=== PATIENT | male | born 1980 | race Caucasian/White ===

== ENCOUNTER 2023-03-19 19:27 | Emergency (ER) | payer BC, SELFPAY ==
[2023-03-19 19:28] VITALS: BP 130/77; PULSE 81; RESP 16; TEMP 37.1; O2SAT 98; BMI 32.7
--- NOTE | 2023-03-19 19:44 | EDS_ITS ---
HPI History of Present Illness Chief Complaint: Laceration Detail of Chief Complaint: Scalp laceration. Informant: patient Onset/Context/Timing Onset: Today and Hours Mechanism/Context: Blunt Injury Current Severity: Mild Maximum Severity: Mild Associated Symptoms Associated Symptoms: Negative for Parasthesias, Weakness, Loss of function, Inability to ambulate, Loss of consciousness or Amnesia Narrative Narrative: 42-year-old male no significant past medical history. Was working outside his home pulled the electrical cord which came undone and the prongs of the cord struck him in his scalp causing a 1 inch laceration. This occurred several hours ago. He was unable to get the bleeding stopped and came in to have it evaluated. Denies any LOC. No headache. His tetanus is up-to-date. Tetanus Immunization: 5-10 years Prior similar symptoms: No Recent Illness/Hospitalization: No PFSH PFS Medical History (Updated 03/19/23 @ 19:[address] Félix Anderson MD) Asthma Medical History no medical history no medical history Allergy/AdvReac Type Severity Reaction Status Date / Time No Known Allergies Allergy Verified 03/19/23 19:29 ROS ROS ED ROS Narrative Denies recent illness. Review of Systems ROS Unobtainable: Denies due to encephalopathy Constitutional Constitutional ED: Denies fever(s) Eyes Eyes: Denies blurry vision ENT ENT ED: Denies ear pain Cardiovascular Cardiovascular: Denies chest pain Respiratory/Chest Respiratory/Chest: Denies cough Gastrointestinal Gastrointestinal: Denies abdominal pain Genitourinary Genitourinary ED: Denies dysuria Musculoskeletal Musculoskeletal: Denies arthralgias Integumentary Denies abscess Neurologic Neurologic: Denies headache(s) Psychiatric Psychiatric: Denies anxiety Endocrine Endocrinology: Denies cold intolerance Hematologic/Lymphatic Hematologic/Lymphatic: Denies easy bleeding or easy bruising Allergic/Immunologic Allergic/Immunologic ED: Denies mouth swelling or tongue swelling EXAM Physical Exam Narrative Exam Narrative: 42-year-old male no acute distress. Vital signs stable afebrile. H EENT exam is round to light. No facial trauma. Anterior top of the scalp is about a 1 inch laceration. It does not gape. There is no significant hematoma. It is oozing blood. No pulsatile bleeding. No foreign body. Neck nontender. Lungs are clear. Heart regular rhythm. Chest wall nontender. Abdomen soft nontender. Moving all 4 extremities. Neurologic exam normal. Const Vital Signs: 03/19/23 19:28 Temperature 98.7 F Temperature Source Temporal Pulse Rate 81 Respiratory Rate 16 Blood Pressure 130/77 H Blood Pressure Mean 94 Pulse Ox 98 Oxygen Delivery Method Room Air Positive well nourished and well developed; Negative for cachectic or unkempt General Appearance ED: well developed and NAD; Negative for unkempt or cachectic Nutritional Appearance: Negative for cachectic HEENT HEENT Narrative: Anterior scalp laceration 1 inch. Does not gape. Mild oozing of blood. trauma and tenderness; Negative for atraumatic Eyes PERRL and EOMs intact bilaterally Neck full ROM General: Negative for tenderness or other Chest Wall inspection of chest normal and palpation of chest normal Breast/Axilla Inspection: Negative for other Resp normal respiratory effort and clear to auscultation bilaterally Effort and Inspection: Negative for pain with movement Auscultation: Negative for rales, rhonchi or wheezes Cardio S1 normal heart sound, S2 normal heart sound and no murmurs Jugular Venous Distention: Negative for other Palpation: Negative for palpable S3 Rate: regular rate; Negative for bradycardia or tachycardic Rhythm: Negative for abnormal rhythm GI normal to inspection, nondistended, normoactive bowel sounds, non-tender, non- distended and no masses Inspection: Negative for abdominal distention Auscultation: normoactive bowel sounds Palpation: soft; Negative for tender or guarding Bladder / Kidney Exam: No other Back/Spine normal to inspection and no thoracic nor lumbar tenderness General Back: Negative for CVA tenderness Thoracic Spine / Upper Back: Negative for thoracic spinal tenderness Extremity normal to inspection and full ROM General Extremety ED: Negative for deformity or edema General Extremity: Negative for deformity or edema Neuro oriented x3, CN's II-XII intact bilaterally, moves all extremities, no focal m otor deficits and no sensory deficits noted Beena Coma Scale: document GCS findings Spontaneous Obeys Commands Oriented 15 Sensorium / Orientation: alert, oriented to person, oriented to place and oriented to time; Negative for orientation impaired, lethargic or stuporous Motor Exam: strength 5/5 throughout Psych mental status grossly normal and thought process normal Appearance: Negative for unkempt Attitude: No agitated Mood & Affect: Negative for depressed, anxious or tearful Skin no rashes or lesions noted, No no wounds, skin turgor normal and no jaundice Skin Narrative: Anterior scalp laceration 1 inch. Wounds: wounds noted PROC Procedures Lacerations Anterior scalp laceration repair:: Length: 1 in Depth: Sub Q Shape: Linear Comment: Anterior scalp laceration. 1 to 2 inches. Oozing blood. No foreign body. No infection. Does not gape. Clean. Closed using Dermabond. Proper hemostasis wound closure obtained. Patient tolerated procedure well. Was instructed on wound care. MDM MDM MDM Narrative Medical decision making narrative: 42-year-old male had an electrical plug hit him and his anterior scalp causing a 1 inch laceration. Tetanus up-to-date. Clean the wound. It does not gape. Dermabond was applied. We discussed suturing versus Dermabond. Patient preferred glue. Steri-Strips were applied. He was instructed on wound care. Discharge Plan Triage Chief Complaint: Laceration ED Provider: Félix Anderson Dx/Rx/DC Orders Clinical Impression: Laceration of scalp Instructions: ED Laceration: All Closures Primary Care Provider: Rickie Stevens Referrals: Rickie Stevens DO [Primary Care Provider] - As Needed Activity Restrictions/Additional Instructions: If rebleeds hold direct pressure to 20 to 30 minutes. If unable to get the bleeding stopped return. Tylenol for pain. The Steri-Strips will naturally come off do not take them off before 5 days. Disposition Disposition: Home, Self Care
== END 2023-03-19 19:59 | disposition home or self-care (01) ==
PROVIDERS: Emergency Provider Emergency Medicine; PCP Family Medicine; Visit Provider Emergency Medicine
DX: S01.01XA Laceration without foreign body of scalp, initial encounter (principal); W22.8XXA Striking against or struck by other objects, initial encounter; Y92.008 Other place in unspecified non-institutional (private) residence as the place of occurrence of the external cause
CPT/HCPCS: 12001; 99282

== ENCOUNTER → 2024-08-17 | Outpatient (CLI) | payer BC, SELFPAY ==
--- NOTE | 2024-08-17 14:06 | RAD_ITS ---
INDICATION: PAIN EXAMINATION/TECHNIQUE: X-RAY - XR Pelvis 1 or 2 Views COMPARISON: None. FINDINGS: PELVIC BONES: No fracture. The sacroiliac joints are unremarkable. The pubic symphysis is not widened. HIPS: No evidence of a fracture or dislocation. SOFT TISSUES: Unremarkable. RAD/Pelvis 1 or 2 Views IMPRESSION: Unremarkable view of the pelvis. Electronically Signed: Jersey Ram DO at 1:49 EDT ,
[2024-08-17 17:36] LABS: Erythrocyte Sedimentation Rate 3 mm/hr (0-20)
[2024-08-17 17:37] LABS: Absolute Lymphocyte Count 2.18 X10^3/uL (0.83-4.51); Absolute Neutrophil Count 2.9 X10^3/uL (2.0-7.7); Basophil# 0.08 X10^3/uL; Basophil% 1.4 % (0-1); Eosinophils% 3.4 % (0-5); Hemoglobin 16.2 g/dL (13.0-16.5); Lymphocyte # 2.18 X10^3/ul (0.83-4.51); Lymphocyte % 37.5 % (19-41); Mean Corp Hgb Conc 33.8 g/dL (32-36); Mean Corpuscular Hgb 30.9 pg (27.0-32.0); Mean Corpuscular Volume 91.6 fL (80-94); Mean Platelet Vol. 10.2 fl (6.2-12.0); Monocyte# 0.47 X10^3/uL; Monocyte% 8.1 % (0-10); NRBC Flagged by Analyzer 0 % (0-5); Neutrophil # 2.88 X10^3/uL (2.7-7.7); Neutrophil % 49.4 % (47-70); Platelet Count 314 K/mm3 (150-450); RBC Distribution Width CV 11.7 % (11.6-14.6); RBC Distribution Width SD 39.5 fl (35.1-43.9); Red Blood Count 5.24 M/mm3 (4.6-6.2); White Blood Count 5.8 K/mm3 (4.4-11.0)
[2024-08-17 18:09] LABS: ALB/GLOB Ratio 1.4 RATIO (0.9-2.4); AST(SGOT) 27 U/L (15-37); Alanine Aminotransfer ALT/SGPT 56 U/L (16-61); Albumin, Serum 4.1 g/dL (3.2-5.0); Alkaline Phosphatase 56 U/L (45-117); Anion Gap 6 (5-15); BUN 20 mg/dL (7-18); BUN/Creat Ratio 18.5 RATIO (10-20); CRP < 2.90 mg/L (0.0-3.0); Calcium,Total 9.2 mg/dL (8.5-10.1); Chloride 108 mmol/L (98-107); Creatinine, Serum 1.08 mg/dL (0.70-1.30); EST Glomerular Filtration Rate 79 mL/min (>60); Est Glom Filt Rate - Afr Amer 96 mL/min (>60); Glucose 130 mg/dL (74-106); Potassium 3.9 mmol/L (3.5-5.1); Protein, Total 7.1 g/dL (6.4-8.2); Rheumatoid Factor < 10.0 IU/mL (<15); Sodium Level 138 mmol/L (136-145)
[2024-08-17 18:30] LABS: Hepatitis B Surface Antibody Non-Reactive; Hepatitis B Surface Antigen Non-Reactive (Nonreactive); Hepatitis C Antibody Non-Reactive (Nonreactive)
[2024-08-20 12:08] LABS: CCP IgG Antibodies 11 units (0-19)
[2024-08-20 14:09] LABS: ANTINUCLEAR ANTIBODIES DIRECT Negative (Negative)
== END | disposition home or self-care (01) ==
LOC: MTLAB 14:05
PROVIDERS: PCP Family Medicine; Referring Provider Internal Medicine Rheumatology; Visit Provider Internal Medicine Rheumatology
DX: L40.59 Other psoriatic arthropathy (principal); L40.8 Other psoriasis
CPT/HCPCS: 36415; 72170; 80053; 85025; 85652; 86038; 86140; 86200; 86431; 86706; 86803; 87340

== ENCOUNTER → 2024-09-07 | Outpatient (CLI) | payer BC, SELFPAY ==
[2024-09-10 16:10] LABS: G6PD Quant Test 261 (127-427); Red Blood Cell Count Test/G6PD 4.96 x10E6/uL (4.14-5.80)
== END | disposition home or self-care (01) ==
LOC: MTLAB 11:18
PROVIDERS: PCP Family Medicine; Referring Provider Internal Medicine Rheumatology; Visit Provider Internal Medicine Rheumatology
DX: L40.59 Other psoriatic arthropathy (principal); Z79.899 Other long term (current) drug therapy
CPT/HCPCS: 36415; 82955

== ENCOUNTER → 2024-11-05 | Outpatient (CLI) | payer BC, SELFPAY ==
[2024-11-05 17:22] LABS: Absolute Lymphocyte Count 2.23 X10^3/uL (0.83-4.51); Absolute Neutrophil Count 2.7 X10^3/uL (2.0-7.7); Basophil# 0.07 X10^3/uL; Basophil% 1.2 % (0-1); Eosinophil# 0.21 X10^3/uL; Eosinophils% 3.7 % (0-5); Hematocrit 44.7 % (40-54); Hemoglobin 15.3 g/dL (13.0-16.5); Lymphocyte # 2.23 X10^3/ul (0.83-4.51); Lymphocyte % 38.9 % (19-41); Mean Corp Hgb Conc 34.2 g/dL (32-36); Mean Corpuscular Hgb 31.8 pg (27.0-32.0); Mean Corpuscular Volume 92.9 fL (80-94); Monocyte# 0.54 X10^3/uL; Monocyte% 9.4 % (0-10); NRBC Flagged by Analyzer 0 % (0-5); Neutrophil # 2.67 X10^3/uL (2.7-7.7); Neutrophil % 46.6 % (47-70); Platelet Count 259 K/mm3 (150-450); RBC Distribution Width CV 12.1 % (11.6-14.6); RBC Distribution Width SD 41.5 fl (35.1-43.9); Red Blood Count 4.81 M/mm3 (4.6-6.2); White Blood Count 5.7 K/mm3 (4.4-11.0)
[2024-11-05 17:40] LABS: ALB/GLOB Ratio 1.6 RATIO (0.9-2.4); AST(SGOT) 29 U/L (15-37); Alanine Aminotransfer ALT/SGPT 47 U/L (16-61); Albumin, Serum 4.2 g/dL (3.2-5.0); Alkaline Phosphatase 52 U/L (45-117); Anion Gap 5 (5-15); BUN 14 mg/dL (7-18); BUN/Creat Ratio 12.6 RATIO (10-20); Calcium,Total 9.1 mg/dL (8.5-10.1); Chloride 109 mmol/L (98-107); Creatinine, Serum 1.11 mg/dL (0.70-1.30); EST Glomerular Filtration Rate 77 mL/min (>60); Est Glom Filt Rate - Afr Amer 93 mL/min (>60); Globulin 2.7 g/dL (2.2-4.2); Glucose 91 mg/dL (74-106); Potassium 3.6 mmol/L (3.5-5.1); Protein, Total 6.9 g/dL (6.4-8.2); Sodium Level 142 mmol/L (136-145)
== END | disposition home or self-care (01) ==
LOC: MTLAB 14:46
PROVIDERS: PCP Family Medicine; Referring Provider Internal Medicine Rheumatology; Visit Provider Internal Medicine Rheumatology
DX: L40.59 Other psoriatic arthropathy (principal); Z79.899 Other long term (current) drug therapy
CPT/HCPCS: 36415; 80053; 85025

== ENCOUNTER → 2025-01-25 | Outpatient (CLI) | payer BC, SELFPAY ==
[2025-01-25 12:46] LABS: Absolute Lymphocyte Count 1.42 X10^3/uL (0.83-4.51); Absolute Neutrophil Count 2.9 X10^3/uL (2.0-7.7); Basophil# 0.06 X10^3/uL; Basophil% 1.2 % (0-1); Eosinophil# 0.19 X10^3/uL; Eosinophils% 3.7 % (0-5); Hematocrit 43.2 % (40-54); Hemoglobin 14.5 g/dL (13.0-16.5); Lymphocyte # 1.42 X10^3/ul (0.83-4.51); Lymphocyte % 27.4 % (19-41); Mean Corp Hgb Conc 33.6 g/dL (32-36); Mean Corpuscular Hgb 31.8 pg (27.0-32.0); Mean Corpuscular Volume 94.7 fL (80-94); Mean Platelet Vol. 10.1 fl (6.2-12.0); Monocyte# 0.64 X10^3/uL; Monocyte% 12.3 % (0-10); NRBC Flagged by Analyzer 0 % (0-5); Neutrophil # 2.86 X10^3/uL (2.7-7.7); Platelet Count 259 K/mm3 (150-450); RBC Distribution Width CV 12.3 % (11.6-14.6); RBC Distribution Width SD 42.8 fl (35.1-43.9); Red Blood Count 4.56 M/mm3 (4.6-6.2); White Blood Count 5.2 K/mm3 (4.4-11.0)
[2025-01-25 13:22] LABS: ALB/GLOB Ratio 1.9 RATIO (0.9-2.4); AST(SGOT) 28 U/L (<=37); Alanine Aminotransfer ALT/SGPT 35 U/L (<=46); Albumin, Serum 4.3 g/dL (3.5-5.0); Alkaline Phosphatase 60 U/L (40-129); Anion Gap 14 (5-15); BUN 13 mg/dL (4-19); BUN/Creat Ratio 12.9 RATIO (10-20); Calcium,Total 9.2 mg/dL (7.6-11.0); Carbon Dioxide 21.4 mmol/L (21.0-32.0); Chloride 104 mmol/L (98-108); EST Glomerular Filtration Rate 96 (>60); Globulin 2.3 g/dL (2.2-4.2); Glucose 114 mg/dL (70-99); Potassium 3.8 mmol/L (3.3-5.1); Protein, Total 6.6 g/dL (5.9-8.4); Sodium Level 139 mmol/L (133-145); Total Bilirubin 0.89 mg/dL (0.00-1.30)
== END | disposition home or self-care (01) ==
LOC: MTLAB 09:42
PROVIDERS: PCP Family Medicine; Referring Provider Internal Medicine Rheumatology; Visit Provider Internal Medicine Rheumatology
DX: L40.59 Other psoriatic arthropathy (principal); Z79.899 Other long term (current) drug therapy
CPT/HCPCS: 36415; 80053; 85025

== ENCOUNTER → 2025-04-24 | Outpatient (CLI) | payer BC, SELFPAY ==
[2025-04-24 17:47] LABS: Hematocrit 43.4 % (40-54); Hemoglobin 15.0 g/dL (13.0-16.5); Immature Granulocytes Count 0.010 X10^3/uL (0.0-0.0); Mean Corp Hgb Conc 34.6 g/dL (32-36); Mean Corpuscular Volume 92.7 fL (80-94); Mean Platelet Vol. 10.1 fl (6.2-12.0); NRBC Flagged by Analyzer 0 % (0-5); Platelet Count 269 K/mm3 (150-450); RBC Distribution Width CV 11.7 % (11.6-14.6); RBC Distribution Width SD 39.8 fl (35.1-43.9); Red Blood Count 4.68 M/mm3 (4.6-6.2); White Blood Count 5.7 K/mm3 (4.4-11.0)
[2025-04-24 18:05] LABS: AST(SGOT) 35 U/L (<=37); Alanine Aminotransfer ALT/SGPT 43 U/L (<=46); Albumin, Serum 4.5 g/dL (3.5-5.0); Alkaline Phosphatase 50 U/L (40-129); Anion Gap 10 (5-15); BUN 17 mg/dL (4-19); BUN/Creat Ratio 15.4 RATIO (10-20); Calcium,Total 9.5 mg/dL (7.6-11.0); Carbon Dioxide 21.8 mmol/L (21.0-32.0); Chloride 107 mmol/L (98-108); Globulin 2.0 g/dL (2.2-4.2); Glucose 90 mg/dL (70-99); Potassium 4.2 mmol/L (3.3-5.1)
== END | disposition home or self-care (01) ==
LOC: MTLAB 15:41
PROVIDERS: PCP Family Medicine; Referring Provider Internal Medicine Rheumatology; Visit Provider Internal Medicine Rheumatology
DX: L40.59 Other psoriatic arthropathy (principal); Z79.899 Other long term (current) drug therapy
CPT/HCPCS: 36415; 80053; 85025

== ENCOUNTER → 2025-07-26 | Outpatient (CLI) | payer BC, SELFPAY ==
[2025-07-26 18:51] LABS: AST(SGOT) 35 U/L (<=37); Alanine Aminotransfer ALT/SGPT 46 U/L (<=46); Albumin, Serum 4.5 g/dL (3.5-5.0); Alkaline Phosphatase 51 U/L (40-129); Anion Gap 12 (5-15); BUN 13 mg/dL (4-19); BUN/Creat Ratio 13.1 RATIO (10-20); Calcium,Total 9.3 mg/dL (7.6-11.0); Carbon Dioxide 22.7 mmol/L (21.0-32.0); Chloride 106 mmol/L (98-108); Globulin 2.1 g/dL (2.2-4.2); Glucose 127 mg/dL (70-99); Potassium 3.7 mmol/L (3.3-5.1)
[2025-07-26 18:56] LABS: Hematocrit 43.5 % (40-54); Hemoglobin 15.3 g/dL (13.0-16.5); Immature Granulocytes Count 0.010 X10^3/uL (0.0-0.0); Mean Corp Hgb Conc 35.2 g/dL (32-36); Mean Corpuscular Volume 91.6 fL (80-94); Mean Platelet Vol. 10.5 fl (6.2-12.0); NRBC Flagged by Analyzer 0 % (0-5); Platelet Count 274 K/mm3 (150-450); RBC Distribution Width CV 11.5 % (11.6-14.6); RBC Distribution Width SD 38.7 fl (35.1-43.9); Red Blood Count 4.75 M/mm3 (4.6-6.2); White Blood Count 5.3 K/mm3 (4.4-11.0)
--- OUTSIDE RECORDS SUMMARY | 2025-08-27 16:23 | XMS RPT_ITS | CCD ---
Author Organization [facility] ion [facility] Care Team Providers Care Vice President Digital Strategist Name Role Phone RODNEY DO, DR ANNIA Echeverria Primary Care Physician RODNEY DO, DR ANNIA Echeverria Attending Unavailabl e RODNEY DO, DR ANNIA Echeverria Primary Care Unavailabl e RODNEY DO, DR ANNIA Echeverria Attending Unavailabl e RODNEY DO, DR ANNIA Echeverria Primary Care Unavailabl e RODNEY DO, DR ANNIA Echeverria Attending Unavailabl e RODNEY DO, DR ANNIA Echeverria Primary Care Unavailabl e SAMM HENNING Attending Unavailable RODNEY DO, DR ANNIA Echeverria Primary Care Unavailabl e AWAIS DOYLE PA-C Attending Unavailable RODNEY DO, DR ANNIA Echeverria Primary Care Unavailabl e RODNEY DO, DR ANNIA Echeverria Attending Unavailabl e RODNEY DO, DR ANNIA Echeverria Primary Care Unavailabl e MD MARCELO MCCRACKEN Attending Unavailable RODNEY DO, DR ANNIA Echeverria Primary Care Unavailabl e Rodney DO, Dr. Damian Primary Care Provider Silvana CARRILLO, Dr. Luna Attending Provider Silvana CARRILLO, Dr. Luna Referring Provider Rodney DO, Dr. Damian Primary Care Provider Silvana CARRILLO, Dr. Luna Attending Provider Silvana CARRILLO, Dr. Luna Referring Provider RODNEY DO, DR ANNIA Echeverria Primary Care UnavailAWAIS Bocanegra MD Attending Unavailable Cheryl Pina Referring Unavailable Cheryl Pina Attending Unavailable RodneyAnnia Primary Care Unavailable Cheryl Pina Referring Unavailable Cheryl Pina Attending Unavailable RodneyAnnia Primary Care Unavailable Cheryl Pina Attending Unavailable RodneyAnnia Primary Care Unavailable Vellanki, Cheryl Referring Unavailable Vellanki, Cheryl Referring Unavailable RodneyAnnia Primary Care Unavailable Vellanki, Cheryl Attending Unavailable Vellanki, Cheryl Attending Unavailable RodneyAnnia Primary Care Unavailable Vellanki, Cheryl Referring Unavailable Vellanki, Cheryl Referring Unavailable Vellanki, Cheryl Attending Unavailable Rodney, Annia Primary Care Unavailable Medications Current Medications Medication Drug Class(es) Dates Sig (Normalized) Sig (Original) 1 ML bimekizumab-bkzx 160 MG/ML Auto-Injector [Bimzelx] (1 source) Start: 08-02-2024 inject 1 dose by subcutaneous injection once Bimzelx Autoinjector 160 mg/mL subcutaneous injection Dose : 320 mg = 2 mL, Subcutaneous, q4wk, per broomcorn thresher, # 4 mL, 0 Refill(s), other reason (Rx), Plaque psoriasis Start Date: 08/02/24 Status: Ordered acetaminophen 500 mg oral tablet (2 sources) Start: 12-13-2023 acetaminophen 500 mg oral tablet Dose : 1,000 mg = 2 tab(s), Oral, TID, PRN pain or fever, 0 Refill(s) Start Date: 12/13/23 Status: Ordered [id number] 200 actuat albuterol 0.09 mg/actuat metered dose inhaler (9 sources) beta2-Adrenergic Agonist Start: 03-03-2022 take 2 puff(s) by inhalation every four hours as needed for wheezing ProAir HFA MDI (90 mcg/inh) inhalation aerosol 2 puff(s), Inhalation, q4h, PRN as needed for wheezing, # 8.5 gram(s), 3 Refill(s), Pharmacy: [facility]/pharmacy #[id number], Moderate persistent asthma without complication, 173, cm, 03/03/22 13:25:00 EDT, Height, kg, 03/03/22 13:25:00 EDT, Dosing Weight Start Date: 03/03/22 Status: Ordered Start: 05-09-2020 take 2 puff(s) by in halation every four hours as needed for wheezing ProAir HFA MDI (90 mcg/inh) inhalation aerosol 2 puff(s), Inhalation, q4h, PRN as needed for wheezing, # 8.5 gram(s), 1 Refill(s), Pharmacy: [facility], Moderate persistent asthma without complication, 173, cm, 05/09/20 15:04:00 EDT, Height, kg, 05/09/20 15:04:00 EDT, Dosing Weight Start Date: 05/09/20 Status: Ordered azithromycin 250 mg oral tablet (2 sources) Macrolide Antimicrobial Start: 08-23-2023 Azithromycin 250 mg tablet Active 250 mg PO daily 6 August 23, 2023 1:00am 2 tablets today, then 1 tablet daily on days 2 through 5 Breo Ellipta 100 mcg-25 mcg/inh inhalation powder (6 sources) Start: 08-02-2024 End: 07-28-2025 take 1 dose by inhalation once daily Breo Ellipta 100 mcg-25 mcg/inh inhalation powder Dose = 1 puff(s), Inhalation, qDay, # 3 EA, 3 Refill(s), Pharmacy: [facility]/pharmacy #[id number], 175, cm, 08/02/24 11:28:00 EDT, Height, kg, 08/02/24 11:28:00 EDT, Dosing Weight Start Date: 08/02/24 Stop Date: 07/28/25 Status: Ordered Start: 12-14-2023 End: 12-08-2024 take 1 dose by inhalation once daily Breo Ellipta 100 mcg-25 mcg/inh inhalation powder Dose = 1 puff(s), Inhalation, qDay, # 3 EA, 3 Refill(s), Pharmacy: [facility]/pharmacy #[id number], 171, cm, 12/13/23 10:59:00 EST, Height, kg, 12/13/23 10:59:00 EST, Dosing Weight Start Date: 12/14/23 Stop Date: 12/08/24 Status: Ordered Start: 09-02-2022 take 1 dose by inhal ation once daily Breo Ellipta 100 mcg-25 mcg/inh inhalation powder Dose = 1 puff(s), Inhalation, qDay, 0 Refill(s) Start Date: 09/02/22 Status: Ordered Start: 02-05-2022 End: 01-31-2023 take 1 dose by inhalation once daily Breo Ellipta 100 mcg-25 mcg/inh inhalation powder Dose = 1 puff(s), Inhalation, Daily, # 1 EA, 11 Refill(s), [id number], Moderate persistent asthma without complication, 173, cm, 10/23/21 15:55:00 EST, Height, kg, 10/23/21 15:55:00 EST, Dosing Weight Start Date: 02/05/22 Stop Date: 01/31/23 Status: Ordered 60 actuat fluticasone propionate 0.25 mg/actuat / salmeterol 0.05 mg/actuat dry powder inhaler (1 source) Corticosteroid, beta2-Adrenergic Agonist Start: 03-03-2022 End: 02-26-2023 take 1 dose by inhalation twice daily Wixela Inhub 250 mcg-50 mcg inhalation powder Dose = 1 puff(s), Inhalation, BID, # 180 EA, 3 Refill(s), [id number], Asthmatic bronchitis Asthma with exacerbation, 173, cm, 03/03/22 13:25:00 EDT, Height Start Date: 03/03/22 Stop Date: 02/26/23 Status: Ordered gabapentin 100 mg oral capsule (1 source) Anti-epileptic Agent Start: 06-07-2024 take 1-3 capsules by mouth at bedtime gabapentin 100 mg oral capsule See Instructions, 1-3 caps at bedtime, # 90 cap(s), 0 Refill(s), Pharmacy: [facility] #[id number], Nocturnal leg movements, 175, cm, 06/07/24 11:14:00 EDT, Height, 98.3, kg, 06/07/24 11:14:00 EDT, Dosing Weight Start Date: 06/07/24 Status: Ordered ibuprofen 200 mg oral capsule (9 sources) Nonsteroidal Anti-inflammatory Drug Start: 03-06-2021 ibuprofen 200 mg oral capsule Dose : 400 mg = 2 cap(s), Oral, q4h, PRN as needed for pain, # 120 cap(s), 0 Refill(s) Start Date: 03/06/21 Status: Ordered loratadine 10 mg oral capsule (2 sources) Start: 09-25-2021 loratadine 10 mg oral capsule Dose : 10 mg = 1 cap(s), Oral, qDay, # 10 cap(s), 0 Refill(s), Pharmacy: [facility], Contact dermatitis, 68.9, cm, 09/25/21 14:16:00 EST, Height, kg, 09/25/21 14:16:00 EST, Dosing Weight Start Date: 09/25/21 Status: Ordered Post-op shoe (4 sources) Start: 02-18-2022 Post-op shoe See Instructions, pt given mens medium in office, # 1 EA, 0 Refill(s), samples given to patient (Rx), Injury of left foot, 108 Start Date: 02/18/22 Status: Ordered Symbicort 80 mcg-4.5 mcg/inh Inhaler (2 sources) Start: 06-08-2023 End: 06-02-2024 take 1 dose by mouth twice daily in the morning Symbicort 80 mcg-4.5 mcg/inh Inhaler Dose = 2 puff(s), Inhalation, BID, in the morning and the evening. rinse mouth and throat after use. replaces Breo due to insurance., # 3 EA, 3 Refill(s), Pharmacy: [facility]/pharmacy #[id number], Moderate asthma without complication, 173, cm, 06/08/23 11:37:00 EDT, Height, kg, 06/08/23 11:37:00 EDT, Dosing Weight Start Date: 06/08/23 Stop Date: 06/02/24 Status: Ordered Completed/Discontinued Medications Medication Drug Class(es) Dates Sig (Normalized) Sig (Original) cetirizine hydrochloride 10 mg oral tablet (9 sources) Histamine-1 Receptor Antagonist Start: 03-06-2021 Zyrtec 10 mg oral tablet Dose : 10 mg = 1 tab(s), Oral, qDay, PRN as needed for allergy symptoms, # 10 tab(s), 0 Refill(s) Start Date: 03/06/21 Status: Suspended rOPINIRole 0.25 mg oral tablet (1 source) Nonergot Dopamine Agonist Start: 08-02-2024 take 4 tablets by mouth at bedtime rOPINIRole 0.25 mg oral tablet See Instructions, 1 tab(s) Oral 1 to 3 hours before bedtime. May increase by 0.25 mg every 5-7 days up to 1 mg., # 60 tab(s), 0 Refill(s), Pharmacy: [facility]/pharmacy #[id number], Restless leg syndrome, 175, cm, 08/02/24 11:28:00 EDT, Height, kg, 08/02/24 11:28:00 EDT, Dosing Weight Start Date: 08/02/24 Status: Ordered 1 ml ustekinumab 90 mg/ml prefilled syringe (6 sources) Interleukin-12 Antagonist, Interleukin-23 Antagonist Start: 04-22-2022 Stelara PFS 90 mg/mL subcutaneous solution Dose : 90 mg = 1 mL, Subcutaneous, q4wk, # 1 mL, 0 Refill(s) Start Date: 04/22/22 Status: Ordered Problems Problem Classification Problem Date Documented Date Episodic/Chronic Asthma (20 sources) Uncomplicated moderate persistent asthma; Translations: [Exacerbation of asthma] Onset: 05-29-2025 05-09-2020 Chronic Disorders of lipid metabolism (1 source) Mixed hyperlipidemia 08-02-2024 Chronic Headache; including migraine (1 source) Headache; including migraine; Translations: [Headache, unspecified] Onset: 05-29-2025 Heart valve disorders (9 sources) Heart murmur 08-25-2021 Episodic Mycoses (14 sources) Onychomycosis of toenails; Translations: [Tinea pedis] 09-17-2022 Episodic Open wounds of head; neck; and trunk (3 sources) Scalp laceration; Translations: [Laceration without foreign body of scalp, initial encounter] 03-19-2023 Episodic Osteoarthritis (8 sources) 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; Translations: [Unspecified osteoarthritis, unspecified site] Onset: 05-29-2025 06-18-2022 Chronic Other aftercare (2 sources) Long-term current use of drug therapy; Translations: [Other senior care (current) drug therapy] Episodic Other aftercare (1 source) Other ad terminal makeup operator (current) drug therapy; Translations: [Other senior care (current) drug therapy] Onset: 07-26-2025 Episodic Other connective tissue disease (7 sources) Pain in left foot 06-18-2022 Episodic Other connective tissue disease (7 sources) Pain of toe of left foot 06-18-2022 Episodic Other connective tissue disease (7 sources) Pain of toe of right foot 09-17-2022 Episodic Other connective tissue disease (7 sources) Plantar fasciitis of left foot 06-18-2022 Episodic Other ear and sense organ disorders (2 sources) Impacted cerumen; Translations: [Impacted cerumen, bilateral] 08-23-2023 Episodic Other hereditary and degenerative nervous system conditions (1 source) Restless legs 08-02-2024 Chronic Other inflammatory condition of skin (7 sources) Psoriasis 09-17-2022 Chronic Other inflammatory condition of skin (1 source) Psoriasis vulgaris; Translations: [Psoriasis vulgaris] Chronic Other inflammatory condition of skin (2 sources) Other psoriatic arthropathy; Translations: [Other psoriatic arthropathy] Onset: 05-01-2025 Chronic Other inflammatory condition of skin (1 source) Other psoriasis; Translations: [Other psoriasis] Onset: 07-26-2025 Chronic Other non-traumatic joint disorders (1 source) Joint pain; Translations: [Pain in unspecified joint] Episodic Otitis media and related conditions (2 sources) Acute left otitis media; Translations: [Otitis media, unspecified, left ear] 08-23-2023 Episodic Residual codes; unclassified (2 sources) Obstructive sleep apnea (adult) (pediatric); Translations: [Obstructive sleep apnea (adult) (pediatric)] Onset: 01-07-2024 Chronic Residual codes; unclassified (3 sources) Hypersomnia, unspecified; Translations: [Hypersomnia, unspecified] Onset: 05-29-2025 Chronic Residual codes; unclassified (1 source) Restlessness and agitation; Translations: [Restlessness and agitation] Onset: 05-29-2025 Chronic Skin and subcutaneous tissue infections (7 sources) Paronychia of toe of left foot 06-18-2022 Episodic Spondylosis; intervertebral disc disorders; other back problems (1 source) Cervicalgia; Translations: [Cervicalgia] Onset: 05-29-2025 Episodic Results Test Name Value Interpretation Reference Range Facility CBC W/Diff, Automatedon 07-17 Absolute Lymph 1.75 X10 3/uL Normal 0.83-4.51 [facility] Comment on above: Performed By: #### L 100.0100, L500.4050 #### [facility] [place], [place], [id number] Absolute Neut 2.9 X10 3/uL Normal 2.0-7.7 [facility] Comment on above: Performed By: #### L 100.0100, L500.4050 #### [facility] [address] [place], [address] Basophils/100 WBC (Bld) 1.1 % High 0-1 [facility] Comment on above: Performed By: #### L 100.0100, L500.4050 #### [facility] [address] [place], [address] Eosinophils/100 WBC (Bld) 3.2 % Normal 0-5 [facility] Comment on above: Performed By: #### L 100.0100, L500.4050 #### [facility] [address] [place], [address] Erythrocyte distribution width (RBC) [Ratio] 11.5 % Low 11.6-14.6 [facility] Comment on above: Performed By: #### L 100.0100, L500.4050 #### [facility] [address] [place], [address] Hematocrit (Bld) [Volume fraction] 43.5 % Normal 40-54 [facility] Comment on above: Performed By: #### L 100.0100, L500.4050 #### [facility] [address] [place], [address] Hemoglobin (Bld) [Mass/Vol] 15.3 g/dL Normal 13.0-16.5 [facility] Comment on above: Performed By: #### L 100.0100, L500.4050 #### [facility] [address] [place], [address] IG% 0.200 Normal 0.0-0.9 [facility] Comment on above: Result Comment: IG% - Immature Granulocytes (promyelocytes, myelocytes and metamyelocytes) > 1% indicates that a LEFT SHIFT is Present. Performed By: #### L 100.0100, L500.4050 #### [facility] [address] [place], [address] Lymphocytes/100 WBC (Bld) 33.3 % Normal 19-41 [facility] Comment on above: Performed By: #### L 100.0100, L500.4050 #### [facility] [address] [place], [address] MCH (RBC) [Entitic mass] 32.2 pg High 27.0-32.0 [facility] Comment on above: Performed By: #### L 100.0100, L500.4050 #### [facility] [address] [place], [address] MCHC (RBC) [Mass/Vol] 35.2 g/dL Normal 32-36 [facility] Comment on above: Performed By: #### L 100.0100, L500.4050 #### [facility] [address] [place], [address] MCV (RBC) [Entitic vol] 91.6 fL Normal 80-94 [facility] Comment on above: Performed By: #### L 100.0100, L500.4050 #### [facility] [address] [place], [address] Monocytes/100 WBC (Bld) 7.6 % Normal 0-10 [facility] Comment on above: Performed By: #### L 100.0100, L500.4050 #### [facility] [address] [place], [address] Neutrophils/100 WBC (Bld) 54.6 % Normal 47-70 [facility] Comment on above: Performed By: #### L 100.0100, L500.4050 #### [facility] [address] [place], [address] Nucleated RBC (Bld) [#/Vol] 0 10*3/uL Normal 0-5 [facility] Comment on above: Performed By: #### L 100.0100, L500.4050 #### [facility] [address] [place], [address] Platelet mean volume (Bld) [Entitic vol] 10.5 fL Normal 6.2-12.0 [facility] Comment on above: Performed By: #### L 100.0100, L500.4050 #### [facility] [address] [place], [address] Platelets (Bld) [#/Vol] 274 10*3/uL Normal 150-450 [facility] Comment on above: Performed By: #### L 100.0100, [id number] #### [facility] [address] [place], [address] RBC (Bld) [#/Vol] 4.75 10*6/uL Normal 4.6-6.2 [facility] Comment on above: Performed By: #### L 100.0100, L500.4050 #### [facility] [address] [place], [address] RDW SD 38.7 fl Normal 35.1-43.9 [facility] Comment on above: Performed By: #### L 100.0100, [id number] #### [facility] [address] [place], [address] WBC (Bld) [#/Vol] 5.3 10*3/uL Normal 4.4-11.0 [facility] Comment on above: Performed By: #### L 100.0100, [id number] #### [facility] [address] [place], [address] Comprehensive Metabolic Prof ilon 07-26-2025 Albumin [Mass/Vol] 4.5 g/dL Normal 3.5-5.0 [facility] Comment on above: Performed By: #### L 100.0100, L500.4050 #### [facility] [address] [place], [address] Albumin/Globulin [Mass ratio] 2.2 {ratio} Normal 0.9-2.4 [facility] Comment on above: Performed By: #### L 100.0100, L500.4050 #### [facility] [address] [place], [address] ALK PHOS 51 U/L Normal 40-129 [facility] Comment on above: Performed By: #### L 100.0100, L500.4050 #### [facility] [address] [place], [address] ALT [Catalytic activity/Vol] 46 U/L Normal <=46 [facility] Comment on above: Performed By: #### L 100.0100, L500.4050 #### [facility] [address] [place], [address] AST [Catalytic activity/Vol] 35 U/L Normal <=37 [facility] Comment on above: Performed By: #### L 100.0100, L500.4050 #### [facility] [address] [place], [address] Bilirubin [Mass/Vol] 0.63 mg/dL Normal 0.00-1.30 [facility] Comment on above: Performed By: #### L 100.0100, L500.4050 #### [facility] [address] [place], [address] BUN/CRE 13.1 RATIO Normal 10-20 [facility] Comment on above: Performed By: #### L 100.0100, L500.4050 #### [facility] [address] [place], [address] Calcium [Mass/Vol] 9.3 mg/dL Normal 7.6-11.0 [facility] Comment on above: Performed By: #### L 100.0100, L500.4050 #### [facility] [address] [place], [address] Chloride [Moles/Vol] 106 mmol/L Normal 98-108 [facility] Comment on above: Performed By: #### L 100.0100, L500.4050 #### [facility] [address] [place], [address] CO2 [Moles/Vol] 22.7 mmol/L Normal 21.0-32.0 [facility] Comment on above: Performed By: #### L 100.0100, L500.4050 #### [facility] [address] [place], [address] Creatinine [Mass/Vol] 0.98 mg/dL Normal 0.70-1.20 [facility] Comment on above: Performed By: #### L 100.0100, L500.4050 #### [facility] [address] [place], [address] GAP 12 Normal 5-15 [facility] Comment on above: Performed By: #### L 100.0100, L500.4050 #### [facility] [address] [place], [address] GFR/1.73 sq M.predicted among non-blacks MDRD (S/P/Bld) [Vol rate/Area] 98 mL/min/{1.73_m2} Normal >60 [facility] Comment on above: Result Comment: mL/m in/1.73m2 CKD-EPI Creatinine Equation (2020) Performed By: #### L 100.0100, L500.4050 #### [facility] [address] [place], [address] Globulin (S) [Mass/Vol] 2.1 g/dL Low 2.2-4.2 [facility] Comment on above: Performed By: #### L 100.0100, L500.4050 #### [facility] [address] [place], [address] Glucose [Mass/Vol] 127 mg/dL High 70-99 [facility] Comment on above: Performed By: #### L 100.0100, L500.4050 #### [facility] [address] [place], [address] Potassium [Moles/Vol] 3.7 mmol/L Normal 3.3-5.1 [facility] Comment on above: Performed By: #### L 100.0100, L500.4050 #### [facility] [address] [place], [address] Sodium [Moles/Vol] 140 mmol/L Normal 133-145 [facility] Comment on above: Performed By: #### L 100.0100, L500.4050 #### [facility] [address] [place], [address] T PROT 6.5 g/dL Normal 5.9-8.4 [facility] Comment on above: Performed By: #### L 100.0100, L500.4050 #### [facility] [address] [place], [address] Urea nitrogen [Mass/Vol] 13 mg/dL Normal 4-19 [facility] Comment on above: Performed By: #### L 100.0100, L500.4050 #### [facility] [address] [place], [address] Absolute lymphocyte countOrd ered By: Cheryl Pina on 04-24-2025 Lymphocytes Auto (Unsp spec) [#/Vol] 2.11 10*3/uL 0.83-4.51 [facility] Absolute neutrophil countOrd ered By: Cheryl Pina on 07-09-2025 Neutrophils (Bld) [#/Vol] 2.7 10*3/uL 2.0-7.7 [facility] Anion gap in Serum or Plasma Ordered By: Cheryl Pina on 04-24-2025 Anion gap [Moles/Vol] 10 mmol/L 5- [facility] Automated lymphocyte count a s percentage of total leukocytesOrdered By: Cheryl Pina on 04-24-2025 Lymphocytes/100 WBC Auto (Unsp spec) 36.8 % - [facility] BUN/creatinine ratioOrdered By: Cherylkirsten Pina on 04-24-2025 Urea nitrogen/Creatinine [Mass ratio] 15.4 mg/mg 10- [facility] Basophil percentageOrdered B y: Cheryl Pina on 04-24-2025 Basophils/100 WBC (Bld) 1.0 % 0-1 [facility] Bilirubin, totalOrdered By: Cheryl Pina on 04-24-2025 Bilirubin [Mass/Vol] 0.96 mg/dL 0.00-1.30 [facility] CBC W/Diff, Automatedon Absolute Lymph 2.11 X10 3/uL Normal 0.83-4.51 [facility] Comment on above: Performed By: #### L 100.0100, L500.4050 #### [facility] [address] [facility] [place], [address] Absolute Neut 2.7 X10 3/uL Normal 2.0-7.7 [facility] Comment on above: Performed By: #### L 100.0100, L500.4050 #### [facility] [address] [place], [address] Basophils/100 WBC (Bld) 1.0 % Normal 0-1 [facility] Comment on above: Performed By: #### L 100.0100, L500.4050 #### [facility] [address] [place], [address] Eosinophils/100 WBC (Bld) 5.1 % High 0-5 [facility] Comment on above: Performed By: #### L 100.0100, L500.4050 #### [facility] [address] [place], [address] Erythrocyte distribution width (RBC) [Ratio] 11.7 % Normal 11.6-14.6 [facility] Comment on above: Performed By: #### L 100.0100, L500.4050 #### [facility] [address] [place], [address] Hematocrit (Bld) [Volume fraction] 43.4 % Normal 40-54 [facility] Comment on above: Performed By: #### L 100.0100, L500.4050 #### [facility] [address] [place], [address] Hemoglobin (Bld) [Mass/Vol] 15.0 g/dL Normal 13.0-16.5 [facility] Comment on above: Performed By: #### L 100.0100, L500.4050 #### [facility] [address] [place], [address] IG% 0.200 Normal 0.0-0.9 [facility] Comment on above: Result Comment: IG% - Immature Granulocytes (promyelocytes, myelocytes and metamyelocytes) > 1% indicates that a LEFT SHIFT is Present. Performed By: #### L 100.0100, L500.4050 #### [facility] [address] [place], [address] Lymphocytes/100 WBC (Bld) 36.8 % Normal 19-41 [facility] [facility] Comment on above: Performed By: #### L 100.0100, L500.4050 #### [facility] [address] [place], [address] MCH (RBC) [Entitic mass] 32.1 pg High 27.0-32.0 [facility] Comment on above: Performed By: #### L 100.0100, L500.4050 #### [facility] [address] [place], [address] MCHC (RBC) [Mass/Vol] 34.6 g/dL Normal 32-36 [facility] Comment on above: Performed By: #### L 100.0100, L500.4050 #### [facility] [address] [place], [address] MCV (RBC) [Entitic vol] 92.7 fL Normal 80-94 [facility] Comment on above: Performed By: #### L 100.0100, L500.4050 #### [facility] [address] [place], [address] Monocytes/100 WBC (Bld) 10.5 % High 0-10 [facility] Comment on above: Performed By: #### L 100.0100, L500.4050 #### [facility] [address] [place], [address] Neutrophils/100 WBC (Bld) 46.4 % Low 47-70 [facility] Comment on above: Performed By: #### L 100.0100, L500.4050 #### [facility] [address] [place], [address] Nucleated RBC (Bld) [#/Vol] 0 10*3/uL Normal 0-5 [facility] Comment on above: Performed By: #### L 100.0100, L500.4050 #### [facility] [address] [place], [address] Platelet mean volume (Bld) [Entitic vol] 10.1 fL Normal 6.2-12.0 [facility] Comment on above: Performed By: #### L 100.0100, L500.4050 #### [facility] [address] [place], [address] Platelets (Bld) [#/Vol] 269 10*3/uL Normal 150-450 [facility] Comment on above: Performed By: #### L 100.0100, L500.4050 #### [facility] [address] [place], [address] RBC (Bld) [#/Vol] 4.68 10*6/uL Normal 4.6-6.2 [facility] Comment on above: Performed By: #### L 100.0100, L500.4050 #### [facility] [address] [place], [address] RDW SD 39.8 fl Normal 35.1-43.9 [facility] Comment on above: Performed By: #### L 100.0100, L500.4050 #### [facility] [address] [place], [address] WBC (Bld) [#/Vol] 5.7 10*3/uL Normal 4.4-11.0 [facility] Comment on above: Performed By: #### L 100.0100, L500.4050 #### [facility] [address] [place], [address] Carbon dioxide, total [Moles /volume] in Central venous bloodOrdered By: Cheryl Pina on 04-24-2025 CO2 [Moles/Vol] 21.8 mmol/L 21.0-32.0 [facility] Chloride assayOrdered By: Joey Pina on 04-24-2025 Chloride [Moles/Vol] 107 mmol/L 98-108 [facility] Comprehensive Metabolic Prof ilon 04-24-2025 Albumin [Mass/Vol] 4.5 g/dL Normal 3.5-5.0 [facility] Comment on above: Performed By: #### L 100.0100, L500.4050 #### [facility] [address] [place], [address] Albumin/Globulin [Mass ratio] 2.2 {ratio} Normal 0.9-2.4 [facility] Comment on above: Performed By: #### L 100.0100, L500.4050 #### [facility] [address] [place], [address] ALK PHOS 50 U/L Normal 40-129 [facility] Comment on above: Performed By: #### L 100.0100, L500.4050 #### [facility] [address] [place], [address] ALT [Catalytic activity/Vol] 43 U/L Normal <=46 [facility] Comment on above: Performed By: #### L 100.0100, L500.4050 #### [facility] [address] [place], [address] AST [Catalytic activity/Vol] 35 U/L Normal <=37 [facility] Comment on above: Performed By: #### L 100.0100, L500.4050 #### [facility] [address] [place], [address] Bilirubin [Mass/Vol] 0.96 mg/dL Normal 0.00-1.30 [facility] Comment on above: Performed By: #### L 100.0100, L500.4050 #### [facility] [address] [place], [address] BUN/CRE 15.4 RATIO Normal 10-20 [facility] Comment on above: Performed By: #### L 100.0100, L500.4050 #### [facility] [address] [place], [address] Calcium [Mass/Vol] 9.5 mg/dL Normal 7.6-11.0 [facility] Comment on above: Performed By: #### L 100.0100, L500.4050 #### [facility] [address] [place], [address] Chloride [Moles/Vol] 107 mmol/L Normal 98-108 [facility] Comment on above: Performed By: #### L 100.0100, L500.4050 #### [facility] [address] [place], [address] CO2 [Moles/Vol] 21.8 mmol/L Normal 21.0-32.0 [facility] Comment on above: Performed By: #### L 100.0100, L500.4050 #### [facility] [address] [place], [address] Creatinine [Mass/Vol] 1.09 mg/dL Normal 0.70-1.20 [facility] Comment on above: Performed By: #### L 100.0100, L500.4050 #### [facility] [address] [place], [address] GAP 10 Normal 5-15 [facility] Comment on above: Performed By: #### L 100.0100, L500.4050 #### [facility] [address] [place], [address] GFR/1.73 sq M.predicted among non-blacks MDRD (S/P/Bld) [Vol rate/Area] 86 mL/min/{1.73_m2} Normal >60 [facility] Comment on above: Result Comment: mL/m in/1.73m2 CKD-EPI Creatinine Equation (2020) Performed By: #### L 100.0100, L500.4050 #### [facility] [address] [place], [address] Globulin (S) [Mass/Vol] 2.0 g/dL Low 2.2-4.2 [facility] Comment on above: Performed By: #### L 100.0100, L500.4050 #### [facility] [address] [place], [address] Glucose [Mass/Vol] 90 mg/dL Normal 70-99 [facility] Comment on above: Performed By: #### L 100.0100, L500.4050 #### [facility] [address] [place], [address] Potassium [Moles/Vol] 4.2 mmol/L Normal 3.3-5.1 [facility] Comment on above: Performed By: #### L 100.0100, L500.4050 #### [facility] [address] [place], [address] Sodium [Moles/Vol] 139 mmol/L Normal 133-145 [facility] Comment on above: Performed By: #### L 100.0100, L500.4050 #### [facility] [address] [place], [address] T PROT 6.5 g/dL Normal 5.9-8.4 [facility] Comment on above: Performed By: #### L 100.0100, L500.4050 #### [facility] [address] [place], [address] Urea nitrogen [Mass/Vol] 17 mg/dL Normal 4-19 [facility] Comment on above: Performed By: #### L 100.0100, L500.4050 #### [facility] [address] [place], [address] Eosinophil percentageOrdered By: Cheryl Pina on 04-24-2025 Eosinophils/100 WBC (Bld) 5.1 % High 0-5 [facility] Erythrocyte distribution wid th ratioOrdered By: Cheryl Pina on 04-24-2025 Erythrocyte distribution width (RBC) [Ratio] 11.7 % 11.6-14.6 [facility] Erythrocyte distribution wid th standard deviationOrdered By: Cheryl Pina on 04-24-2025 Erythrocyte distribution width (RBC) [Ratio] 39.8 fl 35.1-43.9 [facility] Glomerular filtration rate ( GFR) estimation/1.73 sq m using serum, plasma, or whole bOrdered By: Cheryl Pina on 04-24-2025 GFR/1.73 sq M.predicted among non-blacks MDRD (S/P/Bld) [Vol rate/Area] 86 mL/min/{1.73_m2} >60 [facility] Comment on above: mL/min/1.73m2 CKD-EP I Creatinine Equation (2020) Hematocrit Auto (Bld) [Volum e fraction]Ordered By: Cheryl Pina on 04-24-2025 Hematocrit (Bld) [Volume fraction] 43.4 % 40-54 [facility] Hemoglobin measurementOrdere d By: Cheryl Pina on 04-24-2025 Hemoglobin (Bld) [Mass/Vol] 15.0 g/dL 13.0-16.5 [facility] Immature granulocytes/100 WB C Auto (Bld)Ordered By: Cheryl Pina on 04-24-2025 Immature granulocytes/100 WBC (Bld) 0.200 % 0.0-0.9 [facility] Comment on above: IG% - Immature Granu locytes (promyelocytes, myelocytes and metamyelocytes) > 1% indicates that a LEFT SHIFT is Present. Laboratory - Chemistry and C hemistry - challengeOrdered By: Cheryl Pina on 04-24-2025 AST [Catalytic activity/Vol] 35 U/L <38 [facility] MCV (mean corpuscular volume ) determinationOrdered By: Cheryl Pina 04-24-2025 MCV (RBC) [Entitic vol] 92.7 fL 80-94 [facility] Mean corpuscular hemoglobin (MCH) determinationOrdered By: Cheryl Pina on 04-24-2025 MCH (RBC) [Entitic mass] 32.1 pg High 27.0-32.0 [facility] Mean corpuscular hemoglobin concentration (MCHC) determinationOrdered By: Cheryl Pina on 04-24-2025 MCHC (RBC) [Mass/Vol] 34.6 g/dL 32-36 [facility] Mean platelet volume determi nationOrdered By: Cheryl Pina on 04-24-2025 Platelet mean volume (Bld) [Entitic vol] 10.1 fL 6.2-12.0 [facility] Monocyte percentageOrdered B y: Cheryl Pina on 04-24-2025 Monocytes/100 WBC (Bld) 10.5 % High 0-10 [facility] Neutrophil percentageOrdered By: Cheryl Pina on 04-24-2025 Neutrophils/100 WBC (Bld) 46.4 % Low 47-70 [facility] Nucleated red blood cell per centageOrdered By: Cheryl Pina on 04-24-2025 Nucleated RBC/100 WBC (Bld) [Ratio] 0 % 0-5 [facility] Platelet countOrdered By: Joey Pina on 04-24-2025 Platelets (Bld) [#/Vol] 269 10*3/uL 150-450 [facility] Potassium measurement (mass/ volume)Ordered By: Cheryl Pina on 04-24-2025 Potassium (Unsp spec) [Mass/Vol] 4.2 mmol/L 3.3-5.1 [facility] RBC Auto (Bld) [#/Vol]Ordere d By: Cheryl Pina on 04-24-2025 RBC (Bld) [#/Vol] 4.68 10*6/uL 4.6-6.2 [facility] Serum creatinine measurement (mass/volume)Ordered By: Cheryl Pina on 04-24-2025 Creatinine [Mass/Vol] 1.09 mg/dL 0.70-1.20 [facility] Serum globulin measurementOr dered By: Cheryl Pina on 04-24-2025 Globulin (S) [Mass/Vol] 2.0 g/dL Low 2.2-4.2 [facility] Serum glucose measurement (m ass/volume)Ordered By: Cheryl Pina on 04-24-2025 Glucose [Mass/Vol] 90 mg/dL 70-99 [facility] Serum or plasma alanine sarmiento otransferase (ALT) measurementOrdered By: Cheryl Pina on 04-24-2025 ALT [Catalytic activity/Vol] 43 U/L <47 [facility] Serum or plasma albumin brett urement (mass/volume)Ordered By: Cheryl Pina on 04-24-2025 Albumin [Mass/Vol] 4.5 g/dL 3.5-5.0 [facility] Serum or plasma albumin/glob ulin mass ratioOrdered By: Cheryl Pina on 04-24-2025 Albumin/Globulin [Mass ratio] 2.2 {ratio} 0.9-2.4 [facility] Serum or plasma alkaline yoselin sphatase measurementOrdered By: Cheryl Pina on 04-24-2025 ALP [Catalytic activity/Vol] 50 U/L 40-129 [facility] Serum or plasma calcium brett urement (mass/volume)Ordered By: Cheryl Pina on 04-24-2025 Calcium [Mass/Vol] 9.5 mg/dL 7.6-11.0 [facility] Serum or plasma urea nitroge n measurement (mass/volume)Ordered By: Cheryl Pina on 04-24-2025 Urea nitrogen [Mass/Vol] 17 mg/dL 4-19 [facility] Sodium levelOrdered By: Denia Pina on 04-24-2025 Sodium [Moles/Vol] 139 mmol/L 133-145 [facility] Total proteinOrdered By: Iqra Pina on 04-24-2025 Protein [Mass/Vol] 6.5 g/dL 5.9-8.4 [facility] White blood cell (WBC) count Ordered By: Cheryl Pina on 04-24-2025 WBC (Bld) [#/Vol] 5.7 10*3/uL 4.4-11.0 [facility] Absolute lymphocyte countOrd ered By: Cheryl Pina on 01-25-2025 Lymphocytes Auto (Unsp spec) [#/Vol] 1.42 10*3/uL 0.83-4.51 [facility] Absolute neutrophil countOrd ered By: Cheryl Pina on 01-25-2025 Neutrophils (Bld) [#/Vol] 2.9 10*3/uL 2.0-7.7 [facility] Anion gap in Serum or Plasma Ordered By: Cheryl Pina on 01-25-2025 Anion gap [Moles/Vol] 14 mmol/L 5-15 [facility] Automated lymphocyte count a s percentage of total leukocytesOrdered By: Cheryl Pina on 01-25-2025 Lymphocytes/100 WBC Auto (Unsp spec) 27.4 % 19-41 [facility] BUN/creatinine ratioOrdered By: Cheryl Pina on 01-25-2025 Urea nitrogen/Creatinine [Mass ratio] 12.9 mg/mg 10-20 [facility] Basophil percentageOrdered B y: Cheryl Pina on 01-25-2025 Basophils/100 WBC (Bld) 1.2 % High 0-1 [facility] Bilirubin, totalOrdered By: Cheryl Pina on 01-25-2025 Bilirubin [Mass/Vol] 0.89 mg/dL 0.00-1.30 [facility] CBC W/Diff, Automatedon 01-15 Absolute Lymph 1.42 X10 3/uL Normal 0.83-4.51 [facility] Comment on above: Performed By: #### L 100.0100, L500.4050 #### [facility] [address] [place], [address] Absolute Neut 2.9 X10 3/uL Normal 2.0-7.7 [facility] Comment on above: Performed By: #### L 100.0100, L500.4050 #### [facility] [address] [place], [address] Basophils/100 WBC (Bld) 1.2 % High 0-1 [facility] Comment on above: Performed By: #### L 100.0100, L500.4050 #### [facility] [address] [place], [address] Eosinophils/100 WBC (Bld) 3.7 % Normal 0-5 [facility] Comment on above: Performed By: #### L 100.0100, L500.4050 #### [facility] [address] [place], [address] Erythrocyte distribution width (RBC) [Ratio] 12.3 % Normal 11.6-14.6 [facility] Comment on above: Performed By: #### L 100.0100, L500.4050 #### [facility] [address] [place], [address] Hematocrit (Bld) [Volume fraction] 43.2 % Normal 40-54 [facility] Comment on above: Performed By: #### L 100.0100, L500.4050 #### [facility] [address] [place], [address] Hemoglobin (Bld) [Mass/Vol] 14.5 g/dL Normal 13.0-16.5 [facility] Comment on above: Performed By: #### L 100.0100, L500.4050 #### [facility] [address] [place], [address] IG% 0.400 Normal 0.0-0.9 [facility] Comment on above: Result Comment: IG% - Immature Granulocytes (promyelocytes, myelocytes and metamyelocytes) > 1% indicates that a LEFT SHIFT is Present. Performed By: #### L 100.0100, L500.4050 #### [facility] [address] [place], [address] Lymphocytes/100 WBC (Bld) 27.4 % Normal 19-41 [facility] Comment on above: Performed By: #### L 100.0100, L500.4050 #### [facility] [address] [place], [address] MCH (RBC) [Entitic mass] 31.8 pg Normal 27.0-32.0 [facility] Comment on above: Performed By: #### L 100.0100, L500.4050 #### [facility] [address] [place], [address] MCHC (RBC) [Mass/Vol] 33.6 g/dL Normal 32-36 [facility] Comment on above: Performed By: #### L 100.0100, L500.4050 #### [facility] [address] [place], [address] MCV (RBC) [Entitic vol] 94.7 fL High 80-94 [facility] Comment on above: Performed By: #### L 100.0100, L500.4050 #### [facility] [address] [place], [address] Monocytes/100 WBC (Bld) 12.3 % High 0-10 [facility] Comment on above: Performed By: #### L 100.0100, L500.4050 #### [facility] [address] [place], [address] Neutrophils/100 WBC (Bld) 55.0 % Normal 47-70 [facility] Comment on above: Performed By: #### L 100.0100, L500.4050 #### [facility] [address] [place], [address] Nucleated RBC (Bld) [#/Vol] 0 10*3/uL Normal 0-5 [facility] Comment on above: Performed By: #### L 100.0100, L500.4050 #### [facility] [address] [place], [address] Platelet mean volume (Bld) [Entitic vol] 10.1 fL Normal 6.2-12.0 [facility] Comment on above: Performed By: #### L 100.0100, L500.4050 #### [facility] [address] [place], [address] Platelets (Bld) [#/Vol] 259 10*3/uL Normal 150-450 [facility] Comment on above: Performed By: #### L 100.0100, L500.4050 #### [facility] [address] [place], [address] RBC (Bld) [#/Vol] 4.56 10*6/uL Low 4.6-6.2 [facility] Comment on above: Performed By: #### L 100.0100, L500.4050 #### [facility] [address] [place], [address] RDW SD 42.8 fl Normal 35.1-43.9 [facility] Comment on above: Performed By: #### L 100.0100, L500.4050 #### [facility] [address] [place], [address] WBC (Bld) [#/Vol] 5.2 10*3/uL Normal 4.4-11.0 [facility] Comment on above: Performed By: #### L 100.0100, L500.4050 #### [facility] [address] [place], [address] Carbon dioxide, total [Moles /volume] in Central venous bloodOrdered By: Cheryl Pina on 01-25-2025 CO2 [Moles/Vol] 21.4 mmol/L 21.0-32.0 [facility] Chloride assayOrdered By: Joey Pina on 01-25-2025 Chloride [Moles/Vol] 104 mmol/L 98-108 [facility] Comprehensive Metabolic Prof ilon 01-25-2025 Albumin [Mass/Vol] 4.3 g/dL Normal 3.5-5.0 [facility] Comment on above: Performed By: #### L 100.0100, L500.4050 #### [facility] [address] [place], [address] Albumin/Globulin [Mass ratio] 1.9 {ratio} Normal 0.9-2.4 [facility] Comment on above: Performed By: #### L 100.0100, L500.4050 #### [facility] [address] [place], [address] ALK PHOS 60 U/L Normal 40-129 [facility] Comment on above: Performed By: #### L 100.0100, L500.4050 #### [facility] [address] [place], [address] ALT [Catalytic activity/Vol] 35 U/L Normal <=46 [facility] Comment on above: Performed By: #### L 100.0100, L500.4050 #### [facility] [address] [place], [address] AST [Catalytic activity/Vol] 28 U/L Normal <=37 [facility] Comment on above: Performed By: #### L 100.0100, L500.4050 #### [facility] [address] [place], [address] Bilirubin [Mass/Vol] 0.89 mg/dL Normal 0.00-1.30 [facility] Comment on above: Performed By: #### L 100.0100, L500.4050 #### [facility] [address] [place], [address] BUN/CRE 12.9 RATIO Normal 10-20 [facility] Comment on above: Performed By: #### L 100.0100, L500.4050 #### [facility] [address] [place], [address] Calcium [Mass/Vol] 9.2 mg/dL Normal 7.6-11.0 [facility] Comment on above: Performed By: #### L 100.0100, L500.4050 #### [facility] [address] [place], [address] Chloride [Moles/Vol] 104 mmol/L Normal 98-108 [facility] Comment on above: Performed By: #### L 100.0100, L500.4050 #### [facility] [address] [place], [address] CO2 [Moles/Vol] 21.4 mmol/L Normal 21.0-32.0 [facility] Comment on above: Performed By: #### L 100.0100, L500.4050 #### [facility] [address] [place], [address] Creatinine [Mass/Vol] 1.00 mg/dL Normal 0.70-1.20 [facility] Comment on above: Performed By: #### L 100.0100, L500.4050 #### [facility] [address] [place], [address] GAP 14 Normal 5-15 [facility] Comment on above: Performed By: #### L 100.0100, L500.4050 #### [facility] [address] [place], [address] GFR/1.73 sq M.predicted among non-blacks MDRD (S/P/Bld) [Vol rate/Area] 96 mL/min/{1.73_m2} Normal >60 [facility] Comment on above: Result Comment: mL/m in/1.73m2 CKD-EPI Creatinine Equation (2020) Performed By: #### L 100.0100, L500.4050 #### [facility] [address] [place], [address] Globulin (S) [Mass/Vol] 2.3 g/dL Normal 2.2-4.2 [facility] Comment on above: Performed By: #### L 100.0100, L500.4050 #### [facility] [address] [place], [address] Glucose [Mass/Vol] 114 mg/dL High 70-99 [facility] Comment on above: Performed By: #### L 100.0100, L500.4050 #### [facility] [address] [place], [address] Potassium [Moles/Vol] 3.8 mmol/L Normal 3.3-5.1 [facility] Comment on above: Performed By: #### L 100.0100, L500.4050 #### [facility] [address] [place], [address] Sodium [Moles/Vol] 139 mmol/L Normal 133-145 [facility] Comment on above: Performed By: #### L 100.0100, L500.4050 #### [facility] [address] [place], [address] T PROT 6.6 g/dL Normal 5.9-8.4 [facility] Comment on above: Performed By: #### L 100.0100, L500.4050 #### [facility] [address] [place], [address] Urea nitrogen [Mass/Vol] 13 mg/dL Normal 4-19 [facility] Comment on above: Performed By: #### L 100.0100, L500.4050 #### [facility] [address] [place], [address] Eosinophil percentageOrdered By: Cheryl Pina on 01-25-2025 Eosinophils/100 WBC (Bld) 3.7 % 0-5 [facility] Erythrocyte distribution wid th (RBC) [Ratio]Ordered By: Cheryl Pina on 01-25-2025 Erythrocyte distribution width (RBC) [Entitic vol] 42.8 fL 35.1-43.9 [facility] Erythrocyte distribution wid th ratioOrdered By: Cheryl Pina on 01-25-2025 Erythrocyte distribution width (RBC) [Ratio] 12.3 % 11.6-14.6 [facility] Erythrocyte distribution wid th standard deviationOrdered By: Cheryl Pina on 01-25-2025 Erythrocyte distribution width (RBC) [Ratio] 42.8 fl 35.1-43.9 [facility] GFR/1.73 sq M.predicted dom g non-blacks MDRD (S/P/Bld) [Vol rate/Area]Ordered By: Cheryl Pina on 01-25-2025 Estimated GFR (MDRD) Non-Af Amer 96 >60 [facility] Comment on above: mL/min/1.73m2 CKD-EP I Creatinine Equation (2020) Glomerular filtration rate ( GFR) estimation/1.73 sq m using serum, plasma, or whole bOrdered By: Cheryl Pina on 01-25-2025 GFR/1.73 sq M.predicted among non-blacks MDRD (S/P/Bld) [Vol rate/Area] 96 mL/min/{1.73_m2} >60 [facility] Comment on above: mL/min/1.73m2 CKD-EP I Creatinine Equation (2020) Hematocrit Auto (Bld) [Volum e fraction]Ordered By: Cheryl Pina on 01-25-2025 Hematocrit (Bld) [Volume fraction] 43.2 % 40-54 [facility] [facility] Hem[facility] measurementOrdere d By: Cheryl Pina on 01-25-2025 Hemoglobin (Bld) [Mass/Vol] 14.5 g/dL 13.0-16.5 [facility] Immature granulocytes/100 WB C Auto (Bld)Ordered By: Cheryl Pina on 01-25-2025 Immature granulocytes/100 WBC (Bld) 0.400 % 0.0-0.9 [facility] Comment on above: IG% - Immature Granu locytes (promyelocytes, myelocytes and metamyelocytes) > 1% indicates that a LEFT SHIFT is Present. Laboratory - Chemistry and C hemistry - challengeOrdered By: Cheryl Pina on 01-25-2025 AST [Catalytic activity/Vol] 28 U/L <38 [facility] Lymphocytes Auto (Unsp spec) [#/Vol]Ordered By: Cheryl Pina on 01-25-2025 Lymphocytes (Bld) [#/Vol] 1.42 10*3/uL 0.83-4.51 [facility] Lymphocytes/100 WBC Auto (Un sp spec)Ordered By: Cheryl Pina on 01-25-2025 Lymphocytes/100 WBC (Bld) 27.4 % 19-41 [facility] MCV (mean corpuscular volume ) determinationOrdered By: Cheryl Pina on 01-25-2025 MCV (RBC) [Entitic vol] 94.7 fL High 80-94 [facility] Mean corpuscular hemoglobin (MCH) determinationOrdered By: Cheryl Pina on 01-25-2025 MCH (RBC) [Entitic mass] 31.8 pg 27.0-32.0 [facility] Mean corpuscular hemoglobin concentration (MCHC) determinationOrdered By: Cheryl Pina on 01-25-2025 MCHC (RBC) [Mass/Vol] 33.6 g/dL 32-36 [facility] Mean platelet volume determi nationOrdered By: Cheryl Pina on 01-25-2025 Platelet mean volume (Bld) [Entitic vol] 10.1 fL 6.2-12.0 [facility] Monocyte percentageOrdered B y: Cheryl Pina on 01-25-2025 Monocytes/100 WBC (Bld) 12.3 % High 0-10 [facility] Neutrophil percentageOrdered By: Cheryl Pina on 01-25-2025 Neutrophils/100 WBC (Bld) 55.0 % 47-70 [facility] Nucleated red blood cell per centageOrdered By: Cheryl Pina on 01-25-2025 Nucleated RBC/100 WBC (Bld) [Ratio] 0 % 0-5 [facility] Platelet countOrdered By: Joey Pina on 01-25-2025 Platelets (Bld) [#/Vol] 259 10*3/uL 150-450 [facility] Potassium (Unsp spec) [Mass/ Vol]Ordered By: Cheryl Pina on 01-25-2025 Potassium [Moles/Vol] 3.8 mmol/L 3.3-5.1 [facility] Potassium measurement (mass/ volume)Ordered By: Cheryl Pina on 01-25-2025 Potassium (Unsp spec) [Mass/Vol] 3.8 mmol/L 3.3-5.1 [facility] RBC Auto (Bld) [#/Vol]Ordere d By: Cheryl Pina on 01-25-2025 RBC (Bld) [#/Vol] 4.56 10*6/uL Low 4.6-6.2 [facility] Serum creatinine measurement (mass/volume)Ordered By: Cheryl Pina on 01-25-2025 Creatinine [Mass/Vol] 1.00 mg/dL 0.70-1.20 [facility] Serum globulin measurementOr dered By: Cheryl Pina on 01-25-2025 Globulin (S) [Mass/Vol] 2.3 g/dL 2.2-4.2 [facility] Serum glucose measurement (m ass/volume)Ordered By: Cheryl Pina on 01-25-2025 Glucose [Mass/Vol] 114 mg/dL High 70-99 [facility] Serum or plasma alanine sarmiento otransferase (ALT) measurementOrdered By: Cheryl Pina on 01-25-2025 ALT [Catalytic activity/Vol] 35 U/L <47 [facility] Serum or plasma albumin brett urement (mass/volume)Ordered By: Cheryl Pina on 01-25-2025 Albumin [Mass/Vol] 4.3 g/dL 3.5-5.0 [facility] Serum or plasma albumin/glob ulin mass ratioOrdered By: Cheryl Pina on 01-25-2025 Albumin/Globulin [Mass ratio] 1.9 {ratio} 0.9-2.4 [facility] Serum or plasma alkaline yoselin sphatase measurementOrdered By: Cheryl Pina on 01-25-2025 ALP [Catalytic activity/Vol] 60 U/L 40-129 [facility] Serum or plasma calcium brett urement (mass/volume)Ordered By: Cheryl Pina on 01-25-2025 Calcium [Mass/Vol] 9.2 mg/dL 7.6-11.0 [facility] Serum or plasma urea nitroge n measurement (mass/volume)Ordered By: Cheryl Pina on 01-25-2025 Urea nitrogen [Mass/Vol] 13 mg/dL 4-19 [facility] Sodium levelOrdered By: Denia Pina on 01-25-2025 Sodium [Moles/Vol] 139 mmol/L 133-145 [facility] Total proteinOrdered By: Iqra Pina on 01-25-2025 Protein [Mass/Vol] 6.6 g/dL 5.9-8.4 [facility] White blood cell (WBC) count Ordered By: Cheryl Pina on 01-25-2025 WBC (Bld) [#/Vol] 5.2 10*3/uL 4.4-11.0 [facility] Absolute neutrophil countOrd ered By: Cherylkirsten Pina on 11-05-2024 Neutrophils (Bld) [#/Vol] 2.7 10*3/uL 2.0-7.7 [facility] Albumin to globulin ratioOrd ered By: Cheryl Pina on 11-05-2024 Albumin/Globulin [Mass ratio] 1.6 {ratio} 0.9-2.4 [facility] Basophil percentageOrdered B y: Cheryl Pina on 11-05-2024 Basophils/100 WBC (Bld) 1.2 % High 0-1 [facility] Bilirubin, totalOrdered By: Cherylkirsten Pina on 11-05-2024 Bilirubin [Mass/Vol] 1.30 mg/dL High 0.20-1.00 [facility] Comment on above: For patients on eltr ombopag therapy, use of Dimension [place] TBIL is not recommended. Blood urea nitrogen (BUN)/cr eatinine ratioOrdered By: Cheryl Pina on 11-05-2024 Urea nitrogen/Creatinine [Mass ratio] 12.6 mg/mg 08-05 [facility] CBC W/Diff, Automatedon 10-18 Absolute Lymph 2.23 X10 3/uL Normal 0.83-4.51 [facility] Comment on above: Performed By: #### L 500.4050, L100.0100 #### [facility] [address] [facility] [place], [address] Absolute Neut 2.7 X10 3/uL Normal 2.0-7.7 [facility] Comment on above: Performed By: #### L 500.4050, L100.0100 #### [facility] [address] [place], [address] Basophils/100 WBC (Bld) 1.2 % High 0-1 [facility] Comment on above: Performed By: #### L 500.4050, L100.0100 #### [facility] [address] [place], [address] Eosinophils/100 WBC (Bld) 3.7 % Normal 0-5 [facility] Comment on above: Performed By: #### L 500.4050, L100.0100 #### [facility] [address] [place], [address] Erythrocyte distribution width (RBC) [Ratio] 12.1 % Normal 11.6-14.6 [facility] Comment on above: Performed By: #### L 500.4050, L100.0100 #### [facility] [address] [place], [address] Hematocrit (Bld) [Volume fraction] 44.7 % Normal 40-54 [facility] Comment on above: Performed By: #### L 500.4050, L100.0100 #### [facility] [address] [place], [address] Hemoglobin (Bld) [Mass/Vol] 15.3 g/dL Normal 13.0-16.5 [facility] Comment on above: Performed By: #### L 500.4050, L100.0100 #### [facility] [address] [place], [address] IG% 0.200 Normal 0.0-0.9 [facility] Comment on above: Result Comment: IG% - Immature Granulocytes (promyelocytes, myelocytes and metamyelocytes) > 1% indicates that a LEFT SHIFT is Present. Performed By: #### L 500.4050, L100.0100 #### [facility] [address] [place], [address] Lymphocytes/100 WBC (Bld) 38.9 % Normal 19-41 [facility] Comment on above: Performed By: #### L 500.4050, L100.0100 #### [facility] [address] [place], [address] MCH (RBC) [Entitic mass] 31.8 pg Normal 27.0-32.0 [facility] Comment on above: Performed By: #### L 500.4050, L100.0100 #### [facility] [address] [place], [address] MCHC (RBC) [Mass/Vol] 34.2 g/dL Normal 32-36 [facility] Comment on above: Performed By: #### L 500.4050, L100.0100 #### [facility] [address] [place], [address] MCV (RBC) [Entitic vol] 92.9 fL Normal 80-94 [facility] Comment on above: Performed By: #### L 500.4050, L100.0100 #### [facility] [address] [place], [address] Monocytes/100 WBC (Bld) 9.4 % Normal 0-10 [facility] Comment on above: Performed By: #### L 500.4050, L100.0100 #### [facility] [address] [place], [address] Neutrophils/100 WBC (Bld) 46.6 % Low 47-70 [facility] Comment on above: Performed By: #### L 500.4050, L100.0100 #### [facility] [address] [place], [address] Nucleated RBC (Bld) [#/Vol] 0 10*3/uL Normal 0-5 [facility] Comment on above: Performed By: #### L 500.4050, L100.0100 #### [facility] [address] [place], [address] Platelet mean volume (Bld) [Entitic vol] 10.0 fL Normal 6.2-12.0 [facility] Comment on above: Performed By: #### L 500.4050, L100.0100 #### [facility] [address] [place], [address] Platelets (Bld) [#/Vol] 259 10*3/uL Normal 150-450 [facility] Comment on above: Performed By: #### L 500.4050, L100.0100 #### [facility] [address] [place], [address] RBC (Bld) [#/Vol] 4.81 10*6/uL Normal 4.6-6.2 [facility] Comment on above: Performed By: #### L 500.4050, L100.0100 #### [facility] [address] [place], [address] RDW SD 41.5 fl Normal 35.1-43.9 [facility] Comment on above: Performed By: #### L 500.4050, L100.0100 #### [facility] [address] [place], [address] WBC (Bld) [#/Vol] 5.7 10*3/uL Normal 4.4-11.0 [facility] Comment on above: Performed By: #### L 500.4050, L100.0100 #### [facility] [address] [place], [address] Carbon dioxide measurementOr dered By: Cheryl Pina on 11-05-2024 CO2 [Moles/Vol] 27.0 mmol/L 21.0-32.0 [facility] Chloride measurementOrdered By: Cheryl Pina on 11-05-2024 Chloride [Moles/Vol] 109 mmol/L High 98-107 [facility] Comprehensive Metabolic Prof ilon 11-05-2024 Albumin [Mass/Vol] 4.2 g/dL Normal 3.2-5.0 [facility] Comment on above: Performed By: #### L 500.4050, L100.0100 #### [facility] [address] [place], [address] Albumin/Globulin [Mass ratio] 1.6 {ratio} Normal 0.9-2.4 [facility] Comment on above: Performed By: #### L 500.4050, L100.0100 #### [facility] [address] [place], [address] ALK P 52 U/L Normal 45-117 [facility] Comment on above: Performed By: #### L 500.4050, L100.0100 #### [facility] [address] [place], [address] ALT [Catalytic activity/Vol] 47 U/L Normal 16-61 [facility] Comment on above: Performed By: #### L 500.4050, L100.0100 #### [facility] [address] [place], [address] AST [Catalytic activity/Vol] 29 U/L Normal 15-37 [facility] Comment on above: Performed By: #### L 500.4050, L100.0100 #### [facility] [address] [place], [address] Bilirubin [Mass/Vol] 1.30 mg/dL High 0.20-1.00 [facility] Comment on above: Result Comment: For patients on eltrombopag therapy, use of Dimension [place] TBIL is not recommended. Performed By: #### L 500.4050, L100.0100 #### [facility] [address] [place], [address] BUN/CRE 12.6 RATIO Normal 10-20 [facility] Comment on above: Performed By: #### L 500.4050, L100.0100 #### [facility] [address] [place], [address] CA,Total 9.1 mg/dL Normal 8.5-10.1 [facility] Comment on above: Performed By: #### L 500.4050, L100.0100 #### [facility] [address], [address] Chloride [Moles/Vol] 109 mmol/L High 98-107 [facility] Comment on above: Performed By: #### L 500.4050, L100.0100 #### [facility] [address] [place], [address] CO2 [Moles/Vol] 27.0 mmol/L Normal 21.0-32.0 [facility] Comment on above: Performed By: #### L 500.4050, L100.0100 #### [facility] [address] [place], [address] Creatinine [Mass/Vol] 1.11 mg/dL Normal 0.70-1.30 [facility] Comment on above: Result Comment: The validity of the calculated GFR GFRAA in patients over 70 years has not been determined. Clinical correlation is essential. Performed By: #### L 500.4050, L100.0100 #### [facility] [address] [place], [address] EST GFR - AA 93 mL/min Normal >60 [facility] Comment on above: Result Comment: Afri can [place] GFR Calc Performed By: #### L 500.4050, L100.0100 #### [facility] [address] [place], [address] GAP 5 Normal 5-15 [facility] Comment on above: Performed By: #### L 500.4050, L100.0100 #### [facility] [address] [place], [address] GFR/1.73 sq M.predicted among non-blacks MDRD (S/P/Bld) [Vol rate/Area] 77 mL/min/{1.73_m2} Normal >60 [facility] Comment on above: Result Comment: Non- GFR Calc Performed By: #### L 500.4050, L100.0100 #### [facility] [address] [place], [address] Globulin (S) [Mass/Vol] 2.7 g/dL Normal 2.2-4.2 [facility] Comment on above: Performed By: #### L 500.4050, L100.0100 #### [facility] [address] [place], [address] Glucose [Mass/Vol] 91 mg/dL Normal 74-106 [facility] Comment on above: Performed By: #### L 500.4050, L100.0100 #### [facility] [address] [place], [address] Potassium [Moles/Vol] 3.6 mmol/L Normal 3.5-5.1 [facility] Comment on above: Performed By: #### L 500.4050, L100.0100 #### [facility] [address] [place], [address] Sodium [Moles/Vol] 142 mmol/L Normal 136-145 [facility] Comment on above: Performed By: #### L 500.4050, L100.0100 #### [facility] [address] [place], [address] T PROT 6.9 g/dL Normal 6.4-8.2 [facility] Comment on above: Performed By: #### L 500.4050, L100.0100 #### [facility] [address] [place], [address] Urea nitrogen [Mass/Vol] 14 mg/dL Normal 7-18 [facility] Comment on above: Performed By: #### L 500.4050, L100.0100 #### [facility] [place], [address] Eosinophil percentageOrdered By: Cheryl Pina on 11-05-2024 Eosinophils/100 WBC (Bld) 3.7 % 0-5 [facility] Erythrocyte distribution wid th (RBC) [Ratio]Ordered By: Cheryl Pina on 11-05-2024 Erythrocyte distribution width (RBC) [Entitic vol] 41.5 fL 35.1-43.9 [facility] Erythrocyte distribution wid th ratioOrdered By: [facility] Silvana on 11-05-2024 Erythrocyte distribution width (RBC) [Ratio] 12.1 % 11.6-14.6 [facility] Estimated glomerular filtrat ion rate (GFR) AmericanOrdered By: Cherylkirsten Pina on 11-05-2024 Estimated GFR (MDRD) Amer 93 mL/min >60 [facility] Comment on above: GFR Calc Glomerular filtration rate ( GFR) estimationOrdered By: Cheryl Pina on 11-05-2024 Estimated GFR (MDRD) Non-Af Amer 77 mL/min >60 [facility] Comment on above: Non- GFR Calc Glucose measurementOrdered B y: Cheryl Pina on 11-05-2024 Glucose [Mass/Vol] 91 mg/dL 74-106 [facility] Hematocrit Auto (Bld) [Volum e fraction]Ordered By: Cheryl Pina on 11-05-2024 Hematocrit (Bld) [Volume fraction] 44.7 % 40-54 [facility] Hemoglobin measurementOrdere d By: Cheryl Pina on 11-05-2024 Hemoglobin (Bld) [Mass/Vol] 15.3 g/dL 13.0-16.5 [facility] Immature granulocytes/100 WB C Auto (Bld)Ordered By: Cheryl Pina on 11-05-2024 Immature granulocytes/100 WBC (Bld) 0.200 % 0.0-0.9 [facility] Comment on above: IG% - Immature Granu locytes (promyelocytes, myelocytes and metamyelocytes) > 1% indicates that a LEFT SHIFT is Present. Laboratory - Chemistry and C hemistry - challengeOrdered By: Cheryl Pina on 11-05-2024 AST [Catalytic activity/Vol] 29 U/L 15-37 [facility] Lymphocytes Auto (Unsp spec) [#/Vol]Ordered By: Cheryl Pina on 11-05-2024 Lymphocytes (Bld) [#/Vol] 2.23 10*3/uL 0.83-4.51 [facility] Lymphocytes/100 WBC Auto (Un sp spec)Ordered By: Cheryl Pina on 11-05-2024 Lymphocytes/100 WBC (Bld) 38.9 % 19-41 [facility] MCV (mean corpuscular volume ) determinationOrdered By: Cheryl Pina on 11-05-2024 MCV (RBC) [Entitic vol] 92.9 fL 80-94 [facility] Mean corpuscular hemoglobin (MCH) determinationOrdered By: Cheryl Pina on 11-05-2024 MCH (RBC) [Entitic mass] 31.8 pg 27.0-32.0 [facility] Mean corpuscular hemoglobin concentration (MCHC) determinationOrdered By: Cheryl Pina on 11-05-2024 MCHC (RBC) [Mass/Vol] 34.2 g/dL 32-36 [facility] Mean platelet volume determi nationOrdered By: Cheryl Pina on 11-05-2024 Platelet mean volume (Bld) [Entitic vol] 10.0 fL 6.2-12.0 [facility] Monocyte percentageOrdered B y: Cheryl Pina on 11-05-2024 Monocytes/100 WBC (Bld) 9.4 % 0-10 [facility] Neutrophil percentageOrdered By: Cheryl Pina on 11-05-2024 Neutrophils/100 WBC (Bld) 46.6 % Low 47-70 [facility] Nucleated red blood cell per centageOrdered By: Cheryl Pina on 11-05-2024 Nucleated RBC/100 WBC (Bld) [Ratio] 0 % 0-5 [facility] Platelet countOrdered By: Joey iPna on 11-05-2024 Platelets (Bld) [#/Vol] 259 10*3/uL 150-450 [facility] Potassium measurementOrdered By: Cheryl Pina on 11-05-2024 Potassium [Moles/Vol] 3.6 mmol/L 3.5-5.1 [facility] RBC Auto (Bld) [#/Vol]Ordere d By: Cheryl Pina on 11-05-2024 RBC (Bld) [#/Vol] 4.81 10*6/uL 4.6-6.2 [facility] Serum anion gap measurementO rdered By: Cheryl Pina on 11-05-2024 Anion gap [Moles/Vol] 5 mmol/L 5-15 [facility] Serum globulin measurementOr dered By: Cheryl Pina on 11-05-2024 Globulin (S) [Mass/Vol] 2.7 g/dL 2.2-4.2 [facility] Serum or plasma alanine sarmiento otransferase (ALT) measurementOrdered By: Cheryl Pina on 11-05-2024 ALT [Catalytic activity/Vol] 47 U/L 16-61 [facility] Serum or plasma albumin brett urement (mass/volume)Ordered By: Cheryl Pina on 11-05-2024 Albumin [Mass/Vol] 4.2 g/dL 3.2-5.0 [facility] Serum or plasma alkaline yoselin sphatase measurementOrdered By: Cheryl Pina on 11-05-2024 ALP [Catalytic activity/Vol] 52 U/L 45-117 [facility] Serum or plasma calcium brett urement (mass/volume)Ordered By: Cheryl Pina on 11-05-2024 Calcium [Mass/Vol] 9.1 mg/dL 8.5-10.1 [facility] Serum or plasma creatinine m easurement (mass/volume)Ordered By: Cheryl Pina on 11-05-2024 Creatinine [Mass/Vol] 1.11 mg/dL 0.70-1.30 [facility] Comment on above: The validity of the calculated GFR & GFRAA in patients over 70 years has not been determined. Clinical correlation is essential. Serum or plasma urea nitroge n measurement (mass/volume)Ordered By: Cheryl Pina on 11-05-2024 Urea nitrogen [Mass/Vol] 14 mg/dL 7-18 [facility] Sodium levelOrdered By: Denia Pina on 11-05-2024 Sodium [Moles/Vol] 142 mmol/L 136-145 [facility] Total proteinOrdered By: Iqra Pina on 11-05-2024 Protein [Mass/Vol] 6.9 g/dL 6.4-8.2 [facility] White blood cell (WBC) count Ordered By: Cheryl Pina on 11-05-2024 WBC (Bld) [#/Vol] 5.7 10*3/uL 4.4-11.0 [facility] G6PD Quanton 09-10-2024 G6PD QUANT test 261 Normal 127-427 [facility] Comment on above: Result Comment: Resu lt Units: U/10E12 RBC When decreased, G-6-PD, Quant. values are associated with acute hemolytic anemia when deficient individuals are exposed to oxidative stress, such as with certain medications (e.g., primaquine), infection, or ingestion of eleanor beans. Caution: In patients with acute hemolysis (e.g., abnormally low RBC values), testing for G-6-PD may be falsely normal because older erythrocytes with a higher enzyme deficiency have been hemolyzed. Young erythrocytes and reticulocytes have normal or near-normal enzyme activity. Normal values of G-6-PD may be measured for several weeks following a hemolytic event. Performed at: [facility] [address] [id number] Supervisor Pig Machine: Berhane Luque PhD, Phone: [phone] Performed at: [facility] [id number] Supervisor Pig Machine: Harlan Langley MD, Phone: [phone] Performed By: #### L 100.0100, L539.8808 #### [facility] [address] [place], [place], [id number] RBC COUNT 4.96 x10E6/uL Normal 4.14-5.80 [facility] Comment on above: Performed By: #### L 100.0100, L500.4050 #### [facility] [address] [place], [address] QUANTTBon 09-05-2024 QFT Criteria Comment Normal [facility] Comment on above: Result Comment: QuantiFERON-TB Gold Plus is a qualitative indirect test for M tuberculosis infection (including disease) and is intended for use in conjunction with risk assessment, radiography, and other medical and diagnostic evaluations. The QuantiFERON-TB Gold Plus result is determined by subtracting the Nil value from either TB antigen (Ag) value. The Mitogen tube serves as a control for the test. Performed By: #### A DIFF, 591200, CBC, GFR, 604836, BMP, HFP, ANEU #### [place] [address] #### HBSAB, HBSAG, HCV1 #### [place] [address] QFT Mitogen Value >10.00 [facility] Comment on above: Performed By: #### A DIFF, 272810, CBC, GFR, 545233, BMP, HFP, ANEU #### [place] [address] #### HBSAB, HBSAG, HCV1 #### [place] [address] QFT Nil Value 1.68 IU/mL [facility] Comment on above: Performed By: #### A DIFF, 140638, CBC, GFR, 767385, BMP, HFP, ANEU #### [place] [address] #### HBSAB, HBSAG, HCV1 #### [place] [address] QFT TB1 Ag Value 1.11 IU/mL [facility] Comment on above: Performed By: #### A DIFF, 352212, CBC, GFR, 658809, BMP, HFP, ANEU #### [place] [address] #### HBSAB, HBSAG, HCV1 #### [place] [address] QFT TB2 Ag Value 1.16 IU/mL [facility] Comment on above: Performed By: #### A DIFF, 115073, CBC, GFR, 557773, BMP, HFP, ANEU #### [place] [address] #### HBSAB, HBSAG, HCV1 #### [place] [address] QFT-TB Gold Plus [employer] Negative Normal Negative [facility] Comment on above: Result Comment: No r esponse to M tuberculosis antigens detected. Infection with M tuberculosis is unlikely, but high risk individuals should be considered for additional testing (ATS/IDSA/CDC Clinical Practice Guidelines, 2017). The reference range is an Antigen minus Nil result of <0.35 IU/mL. The specimen received for QuantiFERON testing was incubated by the ordering institution. Specific procedures outlined in our Directory of Services and in the package insert for the QuantiFERON Gold (In Tube) test must be followed to enable for proper stimulation of cells for the production of interferon gamma. Chemiluminescence immunoassay methodology Performed At: [facility] [address] [id number] Rebel Last PhD Ph:[phone] Performed By: #### A DIFF, 426628, CBC, GFR, 271808, BMP, HFP, ANEU #### [place] [address] #### HBSAB, HBSAG, HCV1 #### [place] [address] HBCABon 09-04-2024 Hep B Core Total Ab Negative Normal Negative [facility] Comment on above: Result Comment: Perf ormed At: [facility] [id number] Rebel Last PhD Ph:[phone] Performed By: #### A DIFF, 335259, CBC, GFR, 372302, BMP, HFP, ANEU #### [place] [address] #### HBSAB, HBSAG, HCV1 #### [place] [address] .Auto Diffon 09-03-2024 Basophil, Absolute 0.0 10 3/mcL Normal 0.0-0.2 [facility] Comment on above: Performed By: #### A DIFF, 527414, CBC, GFR, 515539, BMP, HFP, ANEU #### [address] [address] #### HBSAB, HBSAG, HCV1 #### [address] [address] Basophils/100 WBC (Bld) 0.9 % Normal 0.0-2.5 [facility] Comment on above: Performed By: #### A DIFF, 573713, CBC, GFR, 066004, BMP, HFP, ANEU #### [place] [address] #### HBSAB, HBSAG, HCV1 #### [address] [address] Eosinophil, Absolute 0.1 10 3/mcL Normal 0.0-0.7 [facility] Comment on above: Performed By: #### A DIFF, 369890, CBC, GFR, 073485, BMP, HFP, ANEU #### [place] [address] #### HBSAB, HBSAG, HCV1 #### [address] [address] Eosinophils/100 WBC (Bld) 2.6 % Normal 0.0-7.0 [facility] Comment on above: Performed By: #### A DIFF, 583838, CBC, GFR, 278796, BMP, HFP, ANEU #### [address] [address] #### HBSAB, HBSAG, HCV1 #### [address] [address] Lymphocyte, Absolute 1.9 10 3/mcL Normal 0.9-4.3 [facility] Comment on above: Performed By: #### A DIFF, 093341, CBC, GFR, 252712, BMP, HFP, ANEU #### [place] [address] #### HBSAB, HBSAG, HCV1 #### [address] [address] Lymphocytes/100 WBC (Bld) 34.0 % Normal 20.0-40.0 [facility] Comment on above: Performed By: #### A DIFF, 269234, CBC, GFR, 934785, BMP, HFP, ANEU #### [place] [address] #### HBSAB, HBSAG, HCV1 #### [address] [address] Monocyte, Absolute 0.5 10 3/mcL Normal 0.1-1.4 [facility] Comment on above: Performed By: #### A DIFF, 572712, CBC, GFR, 297572, BMP, HFP, ANEU #### [place] [address] #### HBSAB, HBSAG, HCV1 #### [address] [address] Monocytes/100 WBC (Bld) 8.2 % Normal 2.0-13.0 [facility] Comment on above: Performed By: #### A DIFF, 492682, CBC, GFR, 539692, BMP, HFP, ANEU #### [place] [address] #### HBSAB, HBSAG, HCV1 #### [address] [address] Neutrophils/100 WBC (Bld) 54.3 % Normal 50.0-75.0 [facility] Comment on above: Performed By: #### A DIFF, 734449, CBC, GFR, 299579, BMP, HFP, ANEU #### [place] [address] #### HBSAB, HBSAG, HCV1 #### [address] [address] .GFRon 09-03-2024 GFR 88 ml/min/1.73sqm Normal [facility] Comment on above: Result Comment: GFR Population mean for , Non- Americans Ages 20-29 = 116 mL/min/1.73 sq.m. Ages 30-39 = 107 mL/min/1.73 sq.m. Ages 40-49 = 99 mL/min/1.73 sq.m. Ages 50-59 = 93 mL/min/1.73 sq.m. Ages 60-69 = 85 mL/min/1.73 sq.m. Ages 70+ = 75 mL/min/1.73 sq.m. Chronic Kidney Disease: Less than 60 mL/min/1.73 square meters End Stage Renal Disease: Less than 15 mL/min/1.73 square meters Performed By: #### A DIFF, 042851, CBC, GFR, 302815, BMP, HFP, ANEU #### [place] [address] #### HBSAB, HBSAG, HCV1 #### [place] [address] GFR Non- 73 ml/min/1.73sqm Normal [facility] Comment on above: Result Comment: GFR Population mean for , Non- Americans Ages 20-29 = 116 mL/min/1.73 sq.m. Ages 30-39 = 107 mL/min/1.73 sq.m. Ages 40-49 = 99 mL/min/1.73 sq.m. Ages 50-59 = 93 mL/min/1.73 sq.m. Ages 60-69 = 85 mL/min/1.73 sq.m. Ages 70+ = 75 mL/min/1.73 sq.m. Chronic Kidney Disease: Less than 60 mL/min/1.73 square meters End Stage Renal Disease: Less than 15 mL/min/1.73 square meters Performed By: #### A DIFF, 692511, CBC, GFR, 042167, BMP, HFP, ANEU #### [address] [address] #### HBSAB, HBSAG, HCV1 #### [address] [address] .NEUABSon 09-03-2024 Neutrophil, Absolute 3.0 10 3/mcL Normal 2.3-8.1 [facility] Comment on above: Performed By: #### A DIFF, 764112, CBC, GFR, 437624, BMP, HFP, ANEU #### [address] [address] #### HBSAB, HBSAG, HCV1 #### [address] [address] BMPon 09-03-2024 BUN/Creatinine Ratio 13 ratio Normal 7-27 [facility] Comment on above: Performed By: #### A DIFF, 18280619, CBC, GFR, 464060, BMP, HFP, ANEU #### [place] [address] #### HBSAB, HBSAG, HCV1 #### [address] [address] Calcium [Mass/Vol] 9.4 mg/dL Normal 8.4-10.2 [facility] Comment on above: Performed By: #### A DIFF, 18280619, CBC, GFR, 374595, BMP, HFP, ANEU #### [place] [address] #### HBSAB, HBSAG, HCV1 #### [address] [address] Chloride [Moles/Vol] 104 mmol/L Normal 98-107 [facility] Comment on above: Performed By: #### A DIFF, 951914, CBC, GFR, 837297, BMP, HFP, ANEU #### [place] [address] #### HBSAB, HBSAG, HCV1 #### [address] [address] CO2 [Moles/Vol] 30 mmol/L High 22-29 [facility] Comment on above: Performed By: #### A DIFF, 060190, CBC, GFR, 974228, BMP, HFP, ANEU #### [place] [address] #### HBSAB, HBSAG, HCV1 #### [address] [address] Creatinine [Mass/Vol] 1.11 mg/dL Normal 0.70-1.30 [facility] Comment on above: Result Comment: Test ing performed on Siemens Dimension EXL analyzer using a modified kinetic Maritza technique. Performed By: #### A DIFF, 952806, CBC, GFR, 469810, BMP, HFP, ANEU #### [place] [address] #### HBSAB, HBSAG, HCV1 #### [address] [address] Electrolyte Balance 8.0 mEq/L Normal 4.0-15.0 [facility] Comment on above: Performed By: #### A DIFF, 18280619, CBC, GFR, 207310, BMP, HFP, ANEU #### [place] [address] #### HBSAB, HBSAG, HCV1 #### [address] [address] Glucose [Mass/Vol] 112 mg/dL High 70-105 [facility] Comment on above: Performed By: #### A DIFF, 18280619, CBC, GFR, 231575, BMP, HFP, ANEU #### [address] [address] #### HBSAB, HBSAG, HCV1 #### [address] [address] Potassium [Moles/Vol] 4.0 mmol/L Normal 3.5-5.1 [facility] Comment on above: Performed By: #### A DIFF, 694879, CBC, GFR, 893522, BMP, HFP, ANEU #### [place] [address] #### HBSAB, HBSAG, HCV1 #### [address] [address] Sodium [Moles/Vol] 142 mmol/L Normal 136-145 [facility] Comment on above: Performed By: #### A DIFF, 986315, CBC, GFR, 371592, BMP, HFP, ANEU #### [address] [address] #### HBSAB, HBSAG, HCV1 #### [address] [address] Urea nitrogen [Mass/Vol] 14 mg/dL Normal 7-18 [facility] Comment on above: Performed By: #### A DIFF, 18280619, CBC, GFR, 749442, BMP, HFP, ANEU #### [address] [address] #### HBSAB, HBSAG, HCV1 #### [place] [address] CBCon 09-03-2024 Erythrocyte distribution width (RBC) [Ratio] 12.7 % Normal 11.5-15.5 [facility] Comment on above: Performed By: #### A DIFF, 18280619, CBC, GFR, 412827, BMP, HFP, ANEU #### [place] [address] #### HBSAB, HBSAG, HCV1 #### [place] [address] Hematocrit (Bld) [Volume fraction] 44.7 % Normal 40.0-52.0 [facility] Comment on above: Performed By: #### A DIFF, 18280619, CBC, GFR, 453186, BMP, HFP, ANEU #### [address] [address] #### HBSAB, HBSAG, HCV1 #### [place] [address] Hgb 15.3 G/dL Normal 13.0-17.5 [facility] Comment on above: Performed By: #### A DIFF, 137867, CBC, GFR, 295523, BMP, HFP, ANEU #### [address] [address] #### HBSAB, HBSAG, HCV1 #### [place] [address] MCH (RBC) [Entitic mass] 31.9 pg Normal 27.0-33.0 [facility] Comment on above: Performed By: #### A DIFF, 751233, CBC, GFR, 309355, BMP, HFP, ANEU #### [place] [address] #### HBSAB, HBSAG, HCV1 #### [place] [address] MCHC 34.3 G/dL Normal 32.0-36.0 [facility] Comment on above: Performed By: #### A DIFF, 843924, CBC, GFR, 626958, BMP, HFP, ANEU #### [place] [address] #### HBSAB, HBSAG, HCV1 #### [place] [address] MCV (RBC) [Entitic vol] 92.9 fL Normal 81.0-100.0 [facility] Comment on above: Performed By: #### A DIFF, 349026, CBC, GFR, 031302, BMP, HFP, ANEU #### [place] [address] #### HBSAB, HBSAG, HCV1 #### [place] [address] Platelet 283 10 3/mcL Normal 150-450 [facility] Comment on above: Performed By: #### A DIFF, 866314, CBC, GFR, 723987, BMP, HFP, ANEU #### [place] [address] #### HBSAB, HBSAG, HCV1 #### [place] [address] Platelet mean volume (Bld) [Entitic vol] 7.5 fL Normal 6.4-10.5 [facility] Comment on above: Performed By: #### A DIFF, 386187, CBC, GFR, 155928, BMP, HFP, ANEU #### [place] [address] #### HBSAB, HBSAG, HCV1 #### [place] [address] RBC 4.81 10 6/mcL Normal 4.50-6.00 [facility] Comment on above: Performed By: #### A DIFF, 364569, CBC, GFR, 019160, BMP, HFP, ANEU #### [place] [address] #### HBSAB, HBSAG, HCV1 #### [place] [address] WBC 5.5 10 3/mcL Normal 4.5-10.8 [facility] Comment on above: Performed By: #### A DIFF, 382024, CBC, GFR, 602723, BMP, HFP, ANEU #### [place] [address] #### HBSAB, HBSAG, HCV1 #### [place] [address] HBSABon 09-03-2024 Hep B Surf Ab <3.1 Low >=10.0 [facility] Comment on above: Result Comment: 0 to < 10.0 mIU/mL Nonreactive Patient is considered not to have protective immunity to HBV infection >/= 10.0 mIU/mL Reactive Patient is considered to have protective immunity to HBV infection. This assay is traceable to the World Health Organization (WHO) Hepatitis B Immunoglobulin 1st International Reference Preparation (1976). The accepted criteria for immunity to HBV is anti-HBs activity >/= 10.0 mIU/mL, as defined by the WHO International Reference Preparation. Performed By: #### A DIFF, 845648, CBC, GFR, 504406, BMP, HFP, ANEU #### [place] [address] #### HBSAB, HBSAG, HCV1 #### [place] [address] HBSAGon 09-03-2024 Hep B Surf Ag Non-Reactive Normal Non-Reactive [facility] Comment on above: Performed By: #### A DIFF, 509926, CBC, GFR, 437392, BMP, HFP, ANEU #### [address] [address] #### HBSAB, HBSAG, HCV1 #### [address] [address] HCVon 09-03-2024 Hep C Ab Non-Reactive Normal Non-Reactive [facility] Comment on above: Performed By: #### A DIFF, 547278, CBC, GFR, 351523, BMP, HFP, ANEU #### [place] [address] #### HBSAB, HBSAG, HCV1 #### [place] [address] Hep C Ab Int Normal [facility] Comment on above: Result Comment: Nonr eactive: Samples with a value < 0.80 are considered nonreactive (negative) for antibodies to HCV. A negative test result does not exclude the possibility of exposure to or infection with HCV. HCV antibodies may be undetectable in some stages of the infection and in some clinical conditions. See Interp Performed By: #### A DIFF, 276732, CBC, GFR, 519480, BMP, HFP, ANEU #### [place] [address] #### HBSAB, HBSAG, HCV1 #### [place] [address] HFP 09-03-2024 Bili Indirect 1.0 mg/dL Normal [facility] Comment on above: Performed By: #### A DIFF, 391974, CBC, GFR, 891967, BMP, HFP, ANEU #### [place] [address] #### HBSAB, HBSAG, HCV1 #### [place] [address] Albumin Level 4.2 G/dL Normal 3.5-5.0 [facility] Comment on above: Performed By: #### A DIFF, 763115, CBC, GFR, 605550, BMP, HFP, ANEU #### [place] [id number] #### HBSAB, HBSAG, HCV1 #### [place] [address] Albumin/Globulin [Mass ratio] 1.8 {ratio} Normal 1.1-2.5 [facility] Comment on above: Performed By: #### A DIFF, 232686, CBC, GFR, 112086, BMP, HFP, ANEU #### [place] [address] #### HBSAB, HBSAG, HCV1 #### [place] [address] ALP [Catalytic activity/Vol] 62 U/L Normal 40-135 [facility] Comment on above: Performed By: #### A DIFF, 682253, CBC, GFR, 510196, BMP, HFP, ANEU #### [place] [address] #### HBSAB, HBSAG, HCV1 #### [place] [address] ALT [Catalytic activity/Vol] 64 U/L High 16-63 [facility] Comment on above: Performed By: #### A DIFF, 365313, CBC, GFR, 866133, BMP, HFP, ANEU #### [place] [address] #### HBSAB, HBSAG, HCV1 #### [place] [address] AST [Catalytic activity/Vol] 28 U/L Normal 10-40 [facility] Comment on above: Performed By: #### A DIFF, 415902, CBC, GFR, 768717, BMP, HFP, ANEU #### [place] [address] #### HBSAB, HBSAG, HCV1 #### [place] [address] Bili Direct 0.2 mg/dL Normal 0.0-0.2 [facility] Comment on above: Result Comment: Use of this assay is not recommended for patients undergoing treatment with eltrombopag due to the potential for falsely elevated results. Performed By: #### A DIFF, 578703, CBC, GFR, 492277, BMP, HFP, ANEU #### [place] [address] #### HBSAB, HBSAG, HCV1 #### [place] [address] Bili Total 1.2 mg/dL High 0.2-1.0 [facility] Comment on above: Result Comment: Use of this assay is not recommended for patients undergoing treatment with eltrombopag due to the potential for falsely elevated results. Performed By: #### A DIFF, 924515, CBC, GFR, 323705, BMP, HFP, ANEU #### [place] [address] #### HBSAB, HBSAG, HCV1 #### [place] [address] Globulin 2.4 G/dL Normal [facility] Comment on above: Performed By: #### A DIFF, 881391, CBC, GFR, 671271, BMP, HFP, ANEU #### [place] [address] #### HBSAB, HBSAG, HCV1 #### [place] [address] Total Protein 6.6 G/dL Normal 6.4-8.2 [facility] Comment on above: Performed By: #### A DIFF, 009503, CBC, GFR, 527614, BMP, HFP, ANEU #### [place] [address] #### HBSAB, HBSAG, HCV1 #### [place] [address] LABORATORYOrdered By: SYSTEM SYSTEM on 09-03-2024 Albumin BCP dye [Mass/Vol] 4.2 G/dL Normal 3.5 - 5.0 G/dL AO ADM SS Albumin/Globulin [Mass ratio] 1.8 {ratio} Normal 1.1 - 2.5 ratio AO ADM SS ALP [Catalytic activity/Vol] 62 U/L Normal 40 - 135 U/L AO ADM SS ALT With P-5'-P [Catalytic activity/Vol] 64 U/L High 16 - 63 U/L AO ADM SS AST With P-5'-P [Catalytic activity/Vol] 28 U/L Normal 10 - 40 U/L AO ADM SS Basophils (Bld) [#/Vol] 0.0 103/mcL Normal 0.0 - 0.2 10^3/mcL AO Workflow SS Basophils/100 WBC (Bld) 0.9 % Normal 0.0 - 2.5 % AO Workflow SS Bilirubin [Mass/Vol] 1.2 mg/dL High 0.2 - 1 .0 mg/dL AO ADM SS Comment on above: Interpretive Data: U se of this assay is not recommended for patients undergoing treatment with eltrombopag due to the potential for falsely elevated results. Bilirubin.direct [Mass/Vol] 0.2 mg/dL Normal 0.0 - 0.2 mg/dL AO ADM SS Comment on above: Interpretive Data: U se of this assay is not recommended for patients undergoing treatment with eltrombopag due to the potential for falsely elevated results. Bilirubin.direct [Mass/Vol] 1.0 mg/dL Invalid Interpretation Code AO Chemistry S Calcium [Mass/Vol] 9.4 mg/dL Normal 8.4 - 10. 2 mg/dL AO ADM SS Chloride [Moles/Vol] 104 mmol/L Normal 98 - 10 7 mmol/L AO ADM SS CO2 [Moles/Vol] 30 mmol/L High 22 - 29 mmol/L AO ADM SS Creatinine [Mass/Vol] 1.11 mg/dL Normal 0.70 - 1.30 mg/dL AO ADM SS Comment on above: Interpretive Data: T esting performed on Siemens Dimension EXL analyzer using a modified kinetic Maritza technique. Electrolyte Balance 8.0 mEq/L Normal 4.0 - 15 .0 mEq/L AO ADM SS Eosinophil, Absolute 0.1 103/mcL Normal 0.0 - 0 .7 10^3/mcL AO Workflow SS Eosinophils/100 WBC (Bld) 2.6 % Normal 0.0 - 7.0 % AO Workflow SS Erythrocyte distribution width (RBC) [Ratio] 12.7 % Normal 11.5 - 15.5 % AO Workflow SS GFR/1.73 sq M.predicted among blacks MDRD (S/P/Bld) [Vol rate/Area] 88 ml/min/1.73sqm Invalid Interpretation Code AO Chemistry S Comment on above: Interpretive Data: GFR Population mean for , Non- Americans Ages 20-29 = 116 mL/min/1.73 sq.m. Ages 30-39 = 107 mL/min/1.73 sq.m. Ages 40-49 = 99 mL/min/1.73 sq.m. Ages 50-59 = 93 mL/min/1.73 sq.m. Ages 60-69 = 85 mL/min/1.73 sq.m. Ages 70+ = 75 mL/min/1.73 sq.m. Chronic Kidney Disease: Less than 60 mL/min/1.73 square meters End Stage Renal Disease: Less than 15 mL/min/1.73 square meters GFR/1.73 sq M.predicted among non-blacks MDRD (S/P/Bld) [Vol rate/Area] 73 ml/min/1.73sqm Invalid Interpretation Code AO Chemistry S Comment on above: Interpretive Data: GFR Population mean for , Non- Americans Ages 20-29 = 116 mL/min/1.73 sq.m. Ages 30-39 = 107 mL/min/1.73 sq.m. Ages 40-49 = 99 mL/min/1.73 sq.m. Ages 50-59 = 93 mL/min/1.73 sq.m. Ages 60-69 = 85 mL/min/1.73 sq.m. Ages 70+ = 75 mL/min/1.73 sq.m. Chronic Kidney Disease: Less than 60 mL/min/1.73 square meters End Stage Renal Disease: Less than 15 mL/min/1.73 square meters Globulin 2.4 G/dL Invalid Interpretation Code AO ADM SS Glucose [Mass/Vol] 112 mg/dL High 70 - 105 mg/dL AO ADM SS Hematocrit (Bld) [Volume fraction] 44.7 % Normal 40.0 - 52.0 % AO Workflow SS Hemoglobin (Bld) [Mass/Vol] 15.3 G/dL Normal 13.0 - 17.5 G/dL AO Workflow SS Lymphocytes (Bld) [#/Vol] 1.9 103/mcL Normal 0.9 - 4.3 10^3/mcL AO Workflow SS Lymphocytes/100 WBC (Bld) 34.0 % Normal 20.0 - 40.0 % AO Workflow SS MCH (RBC) [Entitic mass] 31.9 pg Normal 27.0 - 33.0 pg AO Workflow SS MCHC 34.3 G/dL Normal 32.0 - 36.0 G/dL AO Workflow SS MCV (RBC) [Entitic vol] 92.9 fL Normal 81.0 - 100.0 fL AO Workflow SS Monocytes (Bld) [#/Vol] 0.5 103/mcL Normal 0.1 - 1.4 10^3/mcL AO Workflow SS Monocytes/100 WBC (Bld) 8.2 % Normal 2.0 - 13.0 % AO Workflow SS Neutrophils (Bld) [#/Vol] 3.0 103/mcL Normal 2.3 - 8.1 10^3/mcL AO Workflow SS Neutrophils/100 WBC (Bld) 54.3 % Normal 50.0 - 75.0 % AO Workflow SS Platelet mean volume (Bld) [Entitic vol] 7.5 fL Normal 6.4 - 10.5 fL AO Workflow SS Platelets (Bld) [#/Vol] 283 103/mcL Normal 150 - 450 10^3/mcL AO Workflow SS Potassium [Moles/Vol] 4.0 mmol/L Normal 3.5 - 5.1 mmol/L AO ADM SS Protein [Mass/Vol] 6.6 G/dL Normal 6.4 - 8.2 G/dL AO ADM SS RBC (Bld) [#/Vol] 4.81 106/mcL Normal 4.50 - 6.0 0 10^6/mcL AO Workflow SS Sodium [Moles/Vol] 142 mmol/L Normal 136 - 145 mmol/L AO ADM SS Urea nitrogen [Mass/Vol] 14 mg/dL Normal 7 - 18 mg/dL AO ADM SS Urea nitrogen/Creatinine [Mass ratio] 13 ratio Normal 7 - 27 ratio AO ADM SS WBC (Bld) [#/Vol] 5.5 103/mcL Normal 4.5 - 10.8 10^3/mcL AO Workflow SS LABORATORYOrdered By: Sheba Diana on 09-03-2024 HBV surface Ab Qn (S) mIU/mL Low >=10.0mIU/mL A H ADM SS Comment on above: Interpretive Data: 0 to < 10.0 mIU/mL Nonreactive Patient is considered not to have protective immunity to HBV infection >/= 10.0 mIU/mL Reactive Patient is considered to have protective immunity to HBV infection. This assay is traceable to the World Health Organization (WHO) Hepatitis B Immunoglobulin 1st International Reference Preparation (1976). The accepted criteria for immunity to HBV is anti-HBs activity >/= 10.0 mIU/mL, as defined by the WHO International Reference Preparation. HBV surface Ag IA Ql Non-Reactive (09/03/24 3:11 PM) Normal Non-Reactive AH ADM SS HCV Ab IA Ql Non-Reactive (09/03/24 3:11 PM) Normal Non-Reactive AH ADM SS HCV Ab IA Ql Nonreactive: Samples with a value < 0.80 are considered nonreactive (negative) for antibodies to HCV.A negative test result does not exclude the possibility of exposure to or infection with HCV. HCV antibodies may be undetectable in some stages of the infection and in some clinical conditions. Invalid Interpretation Code AH Chemistry S [facility] L[facility],DIRECT Negative Normal Negative [facility] Comment on above: Result Comment: Perf ormed at: [address] [id number] Supervisor Pig Machine: Berhane Luque PhD, Phone: [phone] Performed By: #### L 100.0100, L511.7141 #### [facility] [address] [place], [address] CCP IgG Antibodieson 024 CCP IgG Ab. 11 units Normal 0-19 [facility] Comment on above: Result Comment: Nega tive <20 Weak positive 20 - 39 Moderate positive 40 - 59 Strong positive >59 Performed at: [address] [id number] Supervisor [employer] Machine: Berhane Luque PhD, Phone: [phone] Performed By: #### L 100.0100, L533.7492 #### [facility] [address] [place], [place], [id number] CBC W/Diff, Automatedon Absolute Lymph 2.18 X10 3/uL Normal 0.83-4.51 [facility] Comment on above: Performed By: #### L 3890.6200, L3890.6100, L505.7010, L100.0100, L4600.0100, L3100.5475, L500.4050, L101.9900, L3890.6300, L501.6710 #### [facility] [address] [place], [place], [id number] (469) Absolute Neut 2.9 X10 3/uL Normal 2.0-7.7 [facility] Comment on above: Performed By: #### L 3890.6200, L3890.6100, L505.7010, L100.0100, L4600.0100, L3100.5475, L500.4050, L101.9900, L3890.6300, L501.6710 #### [facility] [address] [place], [address] (893) Basophils/100 WBC (Bld) 1.4 % High 0-1 [facility] Comment on above: Performed By: #### L 3890.6200, L3890.6100, L505.7010, L100.0100, L4600.0100, L3100.5475, L500.4050, L101.9900, L3890.6300, L501.6710 #### [facility] [address] [place], [address] (200) Eosinophils/100 WBC (Bld) 3.4 % Normal 0-5 [facility] Comment on above: Performed By: #### L 3890.6200, L3890.6100, L505.7010, L100.0100, L4600.0100, L3100.5475, L500.4050, L101.9900, L3890.6300, L501.6710 #### [facility] [address] [place], [address] (712) Erythrocyte distribution width (RBC) [Ratio] 11.7 % Normal 11.6-14.6 [facility] Comment on above: Performed By: #### L 3890.6200, L3890.6100, L505.7010, L100.0100, L4600.0100, L3100.5475, L500.4050, L101.9900, L3890.6300, L501.6710 #### [facility] [address] [facility] [place], [address] Hematocrit (Bld) [Volume fraction] 48.0 % Normal 40-54 [facility] Comment on above: Performed By: #### L 3890.6200, L3890.6100, L505.7010, L100.0100, L4600.0100, L3100.5475, L500.4050, L101.9900, L3890.6300, L501.6710 #### [facility] [address] [facility] [place], [address] Hemoglobin (Bld) [Mass/Vol] 16.2 g/dL Normal 13.0-16.5 [facility] Comment on above: Performed By: #### L 3890.6200, L3890.6100, L505.7010, L100.0100, L4600.0100, L3100.5475, L500.4050, L101.9900, L3890.6300, L501.6710 #### [facility] [address] [facility] [place], [address] IG% 0.200 Normal 0.0-0.9 [facility] Comment on above: Result Comment: IG% - Immature Granulocytes (promyelocytes, myelocytes and metamyelocytes) > 1% indicates that a LEFT SHIFT is Present. Performed By: #### L 3890.6200, L3890.6100, L505.7010, L100.0100, L4600.0100, L3100.5475, L500.4050, L101.9900, L3890.6300, L501.6710 #### [facility] [address] [place], [address] Lymphocytes/100 WBC (Bld) 37.5 % Normal 19-41 [facility] Comment on above: Performed By: #### L 3890.6200, L3890.6100, L505.7010, L100.0100, L4600.0100, L3100.5475, L500.4050, L101.9900, L3890.6300, L501.6710 #### [facility] [address] [place], [address] MCH (RBC) [Entitic mass] 30.9 pg Normal 27.0-32.0 [facility] Comment on above: Performed By: #### L 3890.6200, L3890.6100, L505.7010, L100.0100, L4600.0100, L3100.5475, L500.4050, L101.9900, L3890.6300, L501.6710 #### [facility] [address] [place], [address] MCHC (RBC) [Mass/Vol] 33.8 g/dL Normal 32-36 [facility] Comment on above: Performed By: #### L 3890.6200, L3890.6100, L505.7010, L100.0100, L4600.0100, L3100.5475, L500.4050, L101.9900, L3890.6300, L501.6710 #### [facility] [address] [place], [address] MCV (RBC) [Entitic vol] 91.6 fL Normal 80-94 [facility] Comment on above: Performed By: #### L 3890.6200, L3890.6100, L505.7010, L100.0100, L4600.0100, L3100.5475, L500.4050, L101.9900, L3890.6300, L501.6710 #### [facility] [address] [place], [address] Monocytes/100 WBC (Bld) 8.1 % Normal 0-10 [facility] Comment on above: Performed By: #### L 3890.6200, L3890.6100, L505.7010, L100.0100, L4600.0100, L3100.5475, L500.4050, L101.9900, L3890.6300, L501.6710 #### [facility] [address] [place], [address] Neutrophils/100 WBC (Bld) 49.4 % Normal 47-70 [facility] Comment on above: Performed By: #### L 3890.6200, L3890.6100, L505.7010, L100.0100, L4600.0100, L3100.5475, L500.4050, L101.9900, L3890.6300, L501.6710 #### [facility] [address], [address] Nucleated RBC (Bld) [#/Vol] 0 10*3/uL Normal 0-5 [facility] Comment on above: Performed By: #### L 3890.6200, L3890.6100, L505.7010, L100.0100, L4600.0100, L3100.5475, L500.4050, L101.9900, L3890.6300, L501.6710 #### [facility] [address] [place], [address] Platelet mean volume (Bld) [Entitic vol] 10.2 fL Normal 6.2-12.0 [facility] Comment on above: Performed By: #### L 3890.6200, L3890.6100, L505.7010, L100.0100, L4600.0100, L3100.5475, L500.4050, L101.9900, L3890.6300, L501.6710 #### [facility] [address] [place], [address] ( Platelets (Bld) [#/Vol] 314 10*3/uL Normal 150-450 [facility] Comment on above: Performed By: #### L 3890.6200, L3890.6100, L505.7010, L100.0100, L4600.0100, L3100.5475, L500.4050, L101.9900, L3890.6300, L501.6710 #### [facility] [address] [place], [address] ( RBC (Bld) [#/Vol] 5.24 10*6/uL Normal 4.6-6.2 [facility] Comment on above: Performed By: #### L 3890.6200, L3890.6100, L505.7010, L100.0100, L4600.0100, L3100.5475, L500.4050, L101.9900, L3890.6300, L501.6710 #### [facility] [address] [place], [address] RDW SD 39.5 fl Normal 35.1-43.9 [facility] Comment on above: Performed By: #### L 3890.6200, L3890.6100, L505.7010, L100.0100, L4600.0100, L3100.5475, L500.4050, L101.9900, L3890.6300, L501.6710 #### [facility] [address] [place], [address] WBC (Bld) [#/Vol] 5.8 10*3/uL Normal 4.4-11.0 [facility] Comment on above: Performed By: #### L 3890.6200, L3890.6100, L505.7010, L100.0100, L4600.0100, L3100.5475, L500.4050, L101.9900, L3890.6300, L501.6710 #### [facility] [address] [place], [address] CRPon 08-17-2024 C-REACTIVE PROT < 2.90 Normal 0.0-3.0 [facility] Comment on above: Result Comment: C-Re active Protein (CRP) provides useful information for the diagnosis, therapy and monitoring of inflammatory processes and associated diseases. For the evaluation of Relative Risk for Cardiovascular Disease, a High Sensitivity CRP (HSCRP) should be ordered. Performed By: #### L 3890.6200, L3890.6100, L505.7010, L100.0100, L4600.0100, L3100.5475, L500.4050, L101.9900, L3890.6300, L501.6710 #### [facility] [address] [facility] [place], [address] Comprehensive Metabolic Prof ilon 08-17-2024 Albumin [Mass/Vol] 4.1 g/dL Normal 3.2-5.0 [facility] Comment on above: Performed By: #### L 3890.6200, L3890.6100, L505.7010, L100.0100, L4600.0100, L3100.5475, L500.4050, L101.9900, L3890.6300, L501.6710 #### [facility] [address] [place], [place], [id number] Albumin/Globulin [Mass ratio] 1.4 {ratio} Normal 0.9-2.4 [facility] Comment on above: Performed By: #### L 3890.6200, L3890.6100, L505.7010, L100.0100, L4600.0100, L3100.5475, L500.4050, L101.9900, L3890.6300, L501.6710 #### [facility] [address] [facility] [address] [place], [place], [id number] ALK P 56 U/L Normal 45-117 [facility] Comment on above: Performed By: #### L 3890.6200, L3890.6100, L505.7010, L100.0100, L4600.0100, L3100.5475, L500.4050, L101.9900, L3890.6300, L501.6710 #### [facility] [address] [place], [place], [id number] ALT [Catalytic activity/Vol] 56 U/L Normal 16-61 [facility] Comment on above: Performed By: #### L 3890.6200, L3890.6100, L505.7010, L100.0100, L4600.0100, L3100.5475, L500.4050, L101.9900, L3890.6300, L501.6710 #### [facility] [address] [facility] [address] [place], [place], [id number] AST [Catalytic activity/Vol] 27 U/L Normal 15-37 [facility] Comment on above: Performed By: #### L 3890.6200, L3890.6100, L505.7010, L100.0100, L4600.0100, L3100.5475, L500.4050, L101.9900, L3890.6300, L501.6710 #### [facility] [address] [facility] [address] [place], [place], [id number] Bilirubin [Mass/Vol] 1.30 mg/dL High 0.20-1.00 [facility] Comment on above: Result Comment: For patients on eltrombopag therapy, use of Dimension [place] TBIL is not recommended. Performed By: #### L 3890.6200, L3890.6100, L505.7010, L100.0100, L4600.0100, L3100.5475, L500.4050, L101.9900, L3890.6300, L501.6710 #### [facility] [address] [place], [address] BUN/CRE 18.5 RATIO Normal 10-20 [facility] Comment on above: Performed By: #### L 3890.6200, L3890.6100, L505.7010, L100.0100, L4600.0100, L3100.5475, L500.4050, L101.9900, L3890.6300, L501.6710 #### [facility] [address] [place], [address] CA,Total 9.2 mg/dL Normal 8.5-10.1 [facility] Comment on above: Performed By: #### L 3890.6200, L3890.6100, L505.7010, L100.0100, L4600.0100, L3100.5475, L500.4050, L101.9900, L3890.6300, L501.6710 #### [facility] [address] [place], [address] Chloride [Moles/Vol] 108 mmol/L High 98-107 [facility] Comment on above: Performed By: #### L 3890.6200, L3890.6100, L505.7010, L100.0100, L4600.0100, L3100.5475, L500.4050, L101.9900, L3890.6300, L501.6710 #### [facility] [address] [place], [address] CO2 [Moles/Vol] 24.0 mmol/L Normal 21.0-32.0 [facility] Comment on above: Performed By: #### L 3890.6200, L3890.6100, L505.7010, L100.0100, L4600.0100, L3100.5475, L500.4050, L101.9900, L3890.6300, L501.6710 #### [facility] [address] [place], [place], [id number] Creatinine [Mass/Vol] 1.08 mg/dL Normal 0.70-1.30 [facility] Comment on above: Result Comment: The validity of the calculated GFR GFRAA in patients over 70 years has not been determined. Clinical correlation is essential. Performed By: #### L 3890.6200, L3890.6100, L505.7010, L100.0100, L4600.0100, L3100.5475, L500.4050, L101.9900, L3890.6300, L501.6710 #### [facility] [address] [place], [place], [id number] (207 EST GFR - AA 96 mL/min Normal >60 [facility] Comment on above: Result Comment: Afri can [place] GFR Calc Performed By: #### L 3890.6200, L3890.6100, L505.7010, L100.0100, L4600.0100, L3100.5475, L500.4050, L101.9900, L3890.6300, L501.6710 #### [facility] [address] [place], [place], [id number] GAP 6 Normal 5-15 [facility] Comment on above: Performed By: #### L 3890.6200, L3890.6100, L505.7010, L100.0100, L4600.0100, L3100.5475, L500.4050, L101.9900, L3890.6300, L501.6710 #### [facility] [address] [place], [address] GFR/1.73 sq M.predicted among non-blacks MDRD (S/P/Bld) [Vol rate/Area] 79 mL/min/{1.73_m2} Normal >60 [facility] Comment on above: Result Comment: Non- GFR Calc Performed By: #### L 3890.6200, L3890.6100, L505.7010, L100.0100, L4600.0100, L3100.5475, L500.4050, L101.9900, L3890.6300, L501.6710 #### [facility] [address] [place], [address] Globulin (S) [Mass/Vol] 3.0 g/dL Normal 2.2-4.2 [facility] Comment on above: Performed By: #### L 3890.6200, L3890.6100, L505.7010, L100.0100, L4600.0100, L3100.5475, L500.4050, L101.9900, L3890.6300, L501.6710 #### [facility] [address] [place], [place], [phone] (825) Glucose [Mass/Vol] 130 mg/dL High 74-106 [facility] Comment on above: Result Comment: Fast ing Glucose result greater than or equal to 126 mg/dL suggests DIABETES MELLITUS per A.D.A. criteria. Performed By: #### L 3890.6200, L3890.6100, L505.7010, L100.0100, L4600.0100, L3100.5475, L500.4050, L101.9900, L3890.6300, L501.6710 #### [facility] [address] [place], [place], [phone] (643) Potassium [Moles/Vol] 3.9 mmol/L Normal 3.5-5.1 [facility] Comment on above: Performed By: #### L 3890.6200, L3890.6100, L505.7010, L100.0100, L4600.0100, L3100.5475, L500.4050, L101.9900, L3890.6300, L501.6710 #### [facility] [address] [place], [address] Sodium [Moles/Vol] 138 mmol/L Normal 136-145 [facility] Comment on above: Performed By: #### L 3890.6200, L3890.6100, L505.7010, L100.0100, L4600.0100, L3100.5475, L500.4050, L101.9900, L3890.6300, L501.6710 #### [facility] [address] [place], [address] T PROT 7.1 g/dL Normal 6.4-8.2 [facility] Comment on above: Performed By: #### L 3890.6200, L3890.6100, L505.7010, L100.0100, L4600.0100, L3100.5475, L500.4050, L101.9900, L3890.6300, L501.6710 #### [facility] [address] [place], [address] Urea nitrogen [Mass/Vol] 20 mg/dL High 7-18 [facility] Comment on above: Performed By: #### L 3890.6200, L3890.6100, L505.7010, L100.0100, L4600.0100, L3100.5475, L500.4050, L101.9900, L3890.6300, L501.6710 #### [facility] [address] [place], [address] Erythrocyte Sed Rateon 08-17 SED RATE 3 mm/hr Normal 0-20 [facility] Comment on above: Performed By: #### L 3890.6200, L3890.6100, L505.7010, L100.0100, L4600.0100, L3100.5475, L500.4050, L101.9900, L3890.6300, L501.6710 #### [facility] [address] [place], [address] Hepatitis B Surface Antibody on 08-17-2024 HEP B Surf Ab Non-Reactive Normal [facility] Comment on above: Result Comment: Non Reactive: Inconsistent with immunity less than <10 mIU/mL Reactive: Consistent with immunity greater than or equal to 10 mIU/mL Performed By: #### L 100.0100, L500.4050 #### [facility] [address] [place], [place], [id number] Hepatitis B Surface Antigeno n 08-17-2024 HEP B Surf Ag Non-Reactive Normal Nonreactive [facility] Comment on above: Performed By: #### L 3890.6200, L3890.6100, L505.7010, L100.0100, L4600.0100, L3100.5475, L500.4050, L101.9900, L3890.6300, L501.6710 #### [facility] [address] [facility] [place], [place], [address] Hepatitis C Antibodyon 08-17 Hepatitis C AB Non-Reactive Normal Nonreactive [facility] Comment on above: Result Comment: Non Reactive: < 0.8 Equivocal: >/= 0.8 to < 1.0 Reactive: >/= 1.0 The CDC requires that a reactive/equivocal HCV antibody result be sent out for confirmation. HCV Quant by PCR testing. Performed By: #### L 100.0100, L500.4050 #### [facility] [address] [place], [place], [id number] Pelvis 1 or 2 Viewson 2023 Pelvis 1 or 2 Views [facility] Imaging Services [address] [place], [place] [address] Pelvis 1 or 2 Views MR#: [id number] Acct: [id number] Name: KELI ZELAYA Rep #: [id number] : 1980 M 43 From: Jersey Ram MD PCP: Dr. Annia Stevens, DO Status: REG CLI Study: Pelvis 1 or 2 Views Date of Exam: 08/17/24 Exam# [id number] Ordering Dr: Cheryl Pina MD [id number] INDICATION: PAIN EXAMINATION/TECHNIQU E: X-RAY - XR Pelvis 1 or 2 Views COMPARISON: None. ____ FINDINGS: PELVIC BONES: No fracture. The sacroiliac joints are unremarkable. The pubic symphysis is not widened. HIPS: No evidence of a fracture or dislocation. SOFT TISSUES: Unremarkable. RAD/Pelvis 1 or 2 Views IMPRESSION: Unremarkable view of the pelvis. Electronically Signed: Jersey Ram DO at 1:49 EDT , CC: Dr. Annia Stevens DO; Dr. Cheryl Pina MD Angle Shear Set Up Operator: Signed Normal [facility] Rheumatoid Factoron 08-17-20 24 RHEUMATOID FAC < 10.0 Normal <15 [facility] Comment on above: Performed By: #### L 3890.6200, L3890.6100, L505.7010, L100.0100, L4600.0100, L3100.5475, L500.4050, L101.9900, L3890.6300, L501.6710 #### [facility], [address] ANAIFSon 07-31-2024 Antinuclear Ab Screen Negative Normal Negative [facility] Comment on above: Result Comment: Anti -nuclear antibody test is used as an aid in diagnosis of systemic autoimmune diseases. Where positive and clinically warranted, follow-up using disease-specific testing is recommended. Low positive titers are not uncommon with advanced age, certain chronic infections, and malignancies among others. Test methodology: Indirect fluorescence immunoassay (IFA) using HEp-2 cells. Performed By: [facility] [address] [place] [address] Supervisor Pig Machine: Diomedes Beauchamp III, M.D. CLIA#: [id number] Performed By: #### A DIFF, 773076, CBC, GFR, 112523, BMP, HFP, ANEU #### [address] [address] #### HBSAB, HBSAG, HCV1 #### [address] [address] .GFRon 07-30-2024 GFR Non- 73 ml/min/1.73sqm [facility] Comment on above: Result Comment: GFR Population mean for , Non- Americans Ages 20-29 = 116 mL/min/1.73 sq.m. Ages 30-39 = 107 mL/min/1.73 sq.m. Ages 40-49 = 99 mL/min/1.73 sq.m. Ages 50-59 = 93 mL/min/1.73 sq.m. Ages 60-69 = 85 mL/min/1.73 sq.m. Ages 70+ = 75 mL/min/1.73 sq.m. Chronic Kidney Disease: Less than 60 mL/min/1.73 square meters End Stage Renal Disease: Less than 15 mL/min/1.73 square meters Performed By: #### A DIFF, 925043, CBC, GFR, 508141, BMP, HFP, ANEU #### [address] [address] #### HBSAB, HBSAG, HCV1 #### [address] [address] GFR 89 ml/min/1.73sqm [facility] Comment on above: Result Comment: GFR Population mean for , Non- Americans Ages 20-29 = 116 mL/min/1.73 sq.m. Ages 30-39 = 107 mL/min/1.73 sq.m. Ages 40-49 = 99 mL/min/1.73 sq.m. Ages 50-59 = 93 mL/min/1.73 sq.m. Ages 60-69 = 85 mL/min/1.73 sq.m. Ages 70+ = 75 mL/min/1.73 sq.m. Chronic Kidney Disease: Less than 60 mL/min/1.73 square meters End Stage Renal Disease: Less than 15 mL/min/1.73 square meters Performed By: #### A DIFF, 067561, CBC, GFR, 006330, BMP, HFP, ANEU #### [place] [address] #### HBSAB, HBSAG, HCV1 #### [place] [id number] CMPon 07-30-2024 Albumin Level 4.4 G/dL Normal 3.5-5.0 [facility] Comment on above: Performed By: #### A DIFF, 587336, CBC, GFR, 781163, BMP, HFP, ANEU #### [place] [address] #### HBSAB, HBSAG, HCV1 #### [place] [address] Albumin/Globulin [Mass ratio] 1.8 {ratio} Normal 1.1-2.5 [facility] Comment on above: Performed By: #### A DIFF, 604335, CBC, GFR, 950429, BMP, HFP, ANEU #### [place] [address] #### HBSAB, HBSAG, HCV1 #### [place] [address] ALP [Catalytic activity/Vol] 59 U/L Normal 40-135 [facility] Comment on above: Performed By: #### A DIFF, 853080, CBC, GFR, 167762, BMP, HFP, ANEU #### [place] [address] #### HBSAB, HBSAG, HCV1 #### [place] [address] ALT [Catalytic activity/Vol] 69 U/L High 16-63 [facility] Comment on above: Performed By: #### A DIFF, 679459, CBC, GFR, 881260, BMP, HFP, ANEU #### [place] [address] #### HBSAB, HBSAG, HCV1 #### [address] [address] AST [Catalytic activity/Vol] 27 U/L Normal 10-40 [facility] Comment on above: Performed By: #### A DIFF, 339198, CBC, GFR, 070464, BMP, HFP, ANEU #### [place] [address] #### HBSAB, HBSAG, HCV1 #### [address] [address] Bili Total 1.2 mg/dL High 0.2-1.0 [facility] Comment on above: Result Comment: Use of this assay is not recommended for patients undergoing treatment with eltrombopag due to the potential for falsely elevated results. Performed By: #### A DIFF, 286904, CBC, GFR, 335343, BMP, HFP, ANEU #### [place] [address] #### HBSAB, HBSAG, HCV1 #### [address] [address] BUN/Creatinine Ratio 13 ratio Normal 7-27 [facility] Comment on above: Performed By: #### A DIFF, 503458, CBC, GFR, 159890, BMP, HFP, ANEU #### [address] [address] #### HBSAB, HBSAG, HCV1 #### [address] [address] Calcium [Mass/Vol] 9.5 mg/dL Normal 8.4-10.2 [facility] Comment on above: Performed By: #### A DIFF, 252193, CBC, GFR, 120013, BMP, HFP, ANEU #### [place] [address] #### HBSAB, HBSAG, HCV1 #### [address] [address] Chloride [Moles/Vol] 102 mmol/L Normal 98-107 [facility] Comment on above: Performed By: #### A DIFF, 960177, CBC, GFR, 380149, BMP, HFP, ANEU #### [address] [address] #### HBSAB, HBSAG, HCV1 #### [address] [address] CO2 [Moles/Vol] 27 mmol/L Normal 22-29 [facility] Comment on above: Performed By: #### A DIFF, 18280619, CBC, GFR, 457745, BMP, HFP, ANEU #### [address] [address] #### HBSAB, HBSAG, HCV1 #### [address] [address] Creatinine [Mass/Vol] 1.10 mg/dL Normal 0.70-1.30 [facility] Comment on above: Result Comment: Test ing performed on Siemens Dimension EXL analyzer using a modified kinetic Maritza technique. Performed By: #### A DIFF, 18280619, CBC, GFR, 979675, BMP, HFP, ANEU #### [address] [address] #### HBSAB, HBSAG, HCV1 #### [address] [address] Electrolyte Balance 12.0 mEq/L Normal 4.0-15.0 [facility] Comment on above: Performed By: #### A DIFF, 771050, CBC, GFR, 077503, BMP, HFP, ANEU #### [address] [address] #### HBSAB, HBSAG, HCV1 #### [address] [address] Globulin 2.5 G/dL Normal [facility] Comment on above: Performed By: #### A DIFF, 510566, CBC, GFR, 177845, BMP, HFP, ANEU #### [place] [address] #### HBSAB, HBSAG, HCV1 #### [address] [address] Glucose [Mass/Vol] 98 mg/dL Normal 70-105 [facility] Comment on above: Performed By: #### A DIFF, 449821, CBC, GFR, 718248, BMP, HFP, ANEU #### [place] [address] #### HBSAB, HBSAG, HCV1 #### [address] [address] Potassium [Moles/Vol] 4.1 mmol/L Normal 3.5-5.1 [facility] Comment on above: Performed By: #### A DIFF, 18280619, CBC, GFR, 028811, BMP, HFP, ANEU #### [place] [address] #### HBSAB, HBSAG, HCV1 #### [place] [address] Sodium [Moles/Vol] 141 mmol/L Normal 136-145 [facility] Comment on above: Performed By: #### A DIFF, 18280619, CBC, GFR, 297841, BMP, HFP, ANEU #### [place] [address] #### HBSAB, HBSAG, HCV1 #### [place] [address] Total Protein 6.9 G/dL Normal 6.4-8.2 [facility] Comment on above: Performed By: #### A DIFF, 855136, CBC, GFR, 142437, BMP, HFP, ANEU #### [place] [address] #### HBSAB, HBSAG, HCV1 #### [place] [address] Urea nitrogen [Mass/Vol] 14 mg/dL Normal 7-18 [facility] Comment on above: Performed By: #### A DIFF, 671581, CBC, GFR, 839244, BMP, HFP, ANEU #### [place] [address] #### HBSAB, HBSAG, HCV1 #### [place] [address] CRPon 07-30-2024 C-Reactive Protein 0.1 mg/dL Normal 0.0-0.3 [facility] Comment on above: Performed By: #### A DIFF, 283119, CBC, GFR, 068789, BMP, HFP, ANEU #### [place] [address] #### HBSAB, HBSAG, HCV1 #### [place] [address] ESRon 07-30-2024 Erythrocyte Sed Rate 2 mm/hr Normal 0-15 [facility] Comment on above: Performed By: #### A DIFF, 049949, CBC, GFR, 565244, BMP, HFP, ANEU #### [place] [address] #### HBSAB, HBSAG, HCV1 #### [place] [address] LABORATORYOrdered By: SYSTEM SYSTEM on 07-30-2024 Albumin BCP dye [Mass/Vol] 4.4 G/dL Normal 3.5 - 5.0 G/dL AO ADM SS Albumin/Globulin [Mass ratio] 1.8 {ratio} Normal 1.1 - 2.5 ratio AO ADM SS ALP [Catalytic activity/Vol] 59 U/L Normal 40 - 135 U/L AO ADM SS ALT With P-5'-P [Catalytic activity/Vol] 69 U/L High 16 - 63 U/L AO ADM SS AST With P-5'-P [Catalytic activity/Vol] 27 U/L Normal 10 - 40 U/L AO ADM SS Bilirubin [Mass/Vol] 1.2 mg/dL High 0.2 - 1 .0 mg/dL AO ADM SS Comment on above: Interpretive Data: U se of this assay is not recommended for patients undergoing treatment with eltrombopag due to the potential for falsely elevated results. Calcium [Mass/Vol] 9.5 mg/dL Normal 8.4 - 10. 2 mg/dL AO ADM SS Chloride [Moles/Vol] 102 mmol/L Normal 98 - 10 7 mmol/L AO ADM SS CO2 [Moles/Vol] 27 mmol/L Normal 22 - 29 mmol/L AO ADM SS Creatinine [Mass/Vol] 1.10 mg/dL Normal 0.70 - 1.30 mg/dL AO ADM SS Comment on above: Interpretive Data: T esting performed on Siemens Dimension EXL analyzer using a modified kinetic Maritza technique. CRP [Mass/Vol] 0.1 mg/dL Normal 0.0 - 0.3 mg/dL AO ADM SS Electrolyte Balance 12.0 mEq/L Normal 4.0 - 15 .0 mEq/L AO ADM SS GFR/1.73 sq M.predicted among blacks MDRD (S/P/Bld) [Vol rate/Area] 89 ml/min/1.73sqm Invalid Interpretation Code AO Chemistry S Comment on above: Interpretive Data: GFR Population mean for , Non- Americans Ages 20-29 = 116 mL/min/1.73 sq.m. Ages 30-39 = 107 mL/min/1.73 sq.m. Ages 40-49 = 99 mL/min/1.73 sq.m. Ages 50-59 = 93 mL/min/1.73 sq.m. Ages 60-69 = 85 mL/min/1.73 sq.m. Ages 70+ = 75 mL/min/1.73 sq.m. Chronic Kidney Disease: Less than 60 mL/min/1.73 square meters End Stage Renal Disease: Less than 15 mL/min/1.73 square meters GFR/1.73 sq M.predicted among non-blacks MDRD (S/P/Bld) [Vol rate/Area] 73 ml/min/1.73sqm Invalid Interpretation Code AO Chemistry S Comment on above: Interpretive Data: GFR Population mean for , Non- Americans Ages 20-29 = 116 mL/min/1.73 sq.m. Ages 30-39 = 107 mL/min/1.73 sq.m. Ages 40-49 = 99 mL/min/1.73 sq.m. Ages 50-59 = 93 mL/min/1.73 sq.m. Ages 60-69 = 85 mL/min/1.73 sq.m. Ages 70+ = 75 mL/min/1.73 sq.m. Chronic Kidney Disease: Less than 60 mL/min/1.73 square meters End Stage Renal Disease: Less than 15 mL/min/1.73 square meters Globulin 2.5 G/dL Invalid Interpretation Code AO ADM SS Glucose [Mass/Vol] 98 mg/dL Normal 70 - 105 mg/dL AO ADM SS Potassium [Moles/Vol] 4.1 mmol/L Normal 3.5 - 5.1 mmol/L AO ADM SS Protein [Mass/Vol] 6.9 G/dL Normal 6.4 - 8.2 G/dL AO ADM SS Sodium [Moles/Vol] 141 mmol/L Normal 136 - 145 mmol/L AO ADM SS Urea nitrogen [Mass/Vol] 14 mg/dL Normal 7 - 18 mg/dL AO ADM SS Urea nitrogen/Creatinine [Mass ratio] 13 ratio Normal 7 - 27 ratio AO ADM SS LABORATORYOrdered By: Kaia Arvizu on 07-30-2024 Cholesterol [Mass/Vol] 213 mg/dL High 0 - 200 mg/dL AO ADM SS Comment on above: Interpretive Data: C holesterol Reference Interval: Less than 200 Desirable 200-239 Borderline high risk 240 and above High risk Cholesterol in HDL [Mass/Vol] 50 mg/dL Normal 40 - 60 mg/dL AO ADM SS Cholesterol in LDL [Mass/Vol] 122 mg/dL Normal 0 - 130 mg/dL AO ADM SS Triglyceride [Mass/Vol] 207 mg/dL High 0 - 150 mg/d L AO ADM SS Comment on above: Interpretive Data: T riglyceride Reference Interval: Less than 150 Normal 150-199 Borderline high risk 200-499 High risk 500 or higher Very high risk LABORATORYOrdered By: Onelia Jaramillo on 07-30-2024 ESR Photometric method (Bld) [Velocity] 2 mm/hr Normal 0 - 15 mm/hr AO Man Heme SS LIPIDon 07-30-2024 Cholesterol [Mass/Vol] 213 mg/dL High 0-[address] [facility] Comment on above: Result Comment: Chol esterol Reference Interval: Less than 200 Desirable 200-239 Borderline high risk 240 and above High risk Performed By: #### A DIFF, [id number], CBC, GFR, [id number], BMP, HFP, ANEU #### [place] [id number] #### HBSAB, HBSAG, HCV1 #### [place] [address] Cholesterol in HDL [Mass/Vol] 50 mg/dL Normal 40-60 [facility] Comment on above: Performed By: #### A DIFF, [id number], CBC, GFR, 460802, BMP, HFP, ANEU #### [place] [id number] #### HBSAB, HBSAG, HCV1 #### [place] [place] [address] Cholesterol in LDL [Mass/Vol] 122 mg/dL Normal 0-130 [facility] Comment on above: Performed By: #### A DIFF, [id number], CBC, GFR, 123665, BMP, HFP, ANEU #### [place] [address] #### HBSAB, HBSAG, HCV1 #### [place] [address] Triglyceride [Mass/Vol] 207 mg/dL High 0-150 [facility] Comment on above: Result Comment: Trig lyceride Reference Interval: Less than 150 Normal 150-199 Borderline high risk 200-499 High risk 500 or higher Very high risk Performed By: #### A DIFF, [id number], CBC, GFR, 356237, BMP, HFP, ANEU #### [place] [address] #### HBSAB, HBSAG, HCV1 #### [place] [address] .Auto Diffon 05-07-2024 Basophil, Absolute 0.1 10 3/mcL Normal 0.0-0.2 [facility] ([place]) Comment on above: Performed By: #### C MP, CBC, GFR, ADIFF, ANEU #### [place] [address] Basophils/100 WBC (Bld) 0.9 % Normal 0.0-2.5 A [facility] ([place]) Comment on above: Performed By: #### C MP, CBC, GFR, ADIFF, ANEU #### [address] [address] Eosinophil, Absolute 0.2 10 3/mcL Normal 0.0-0.4 [facility] ([place]) Comment on above: Performed By: #### C MP, CBC, GFR, ADIFF, ANEU #### [address] [address] Eosinophils/100 WBC (Bld) 2.8 % Normal 0.0-7.0 [facility] ([place]) Comment on above: Performed By: #### C MP, CBC, GFR, ADIFF, ANEU #### [address] [address] Lymphocyte, Absolute 2.3 10 3/mcL Normal 0.8-3.9 [facility] ([place]) Comment on above: Performed By: #### C MP, CBC, GFR, ADIFF, ANEU #### [address] [address] Lymphocytes/100 WBC (Bld) 36.2 % Normal 10.0-50.0 [facility] ([place]) Comment on above: Performed By: #### C MP, CBC, GFR, ADIFF, ANEU #### [address] [address] Monocyte, Absolute 0.6 10 3/mcL Normal 0.2-1.0 [facility] ([place]) Comment on above: Performed By: #### C MP, CBC, GFR, ADIFF, ANEU #### [address] [address] Monocytes/100 WBC (Bld) 9.1 % Normal 1.7-13.0 A [facility] ([place]) Comment on above: Performed By: #### C MP, CBC, GFR, ADIFF, ANEU #### [address] [address] Neutrophils/100 WBC (Bld) 51.0 % Normal 37.0-80.0 [facility] ([place] Comment on above: Performed By: #### C MP, CBC, GFR, ADIFF, ANEU #### [address] [address] .GFRon 05-07-2024 GFR 82 ml/min/1.73sqm Normal [facility] ([place]) Comment on above: Result Comment: GFR Population mean for , Non- Americans Ages 20-29 = 116 mL/min/1.73 sq.m. Ages 30-39 = 107 mL/min/1.73 sq.m. Ages 40-49 = 99 mL/min/1.73 sq.m. Ages 50-59 = 93 mL/min/1.73 sq.m. Ages 60-69 = 85 mL/min/1.73 sq.m. Ages 70+ = 75 mL/min/1.73 sq.m. Chronic Kidney Disease: Less than 60 mL/min/1.73 square meters End Stage Renal Disease: Less than 15 mL/min/1.73 square meters Performed By: #### C MP, CBC, GFR, ADIFF, ANEU #### [address] [address] GFR Non- 68 ml/min/1.73sqm Normal [facility] ([place] Comment on above: Result Comment: GFR Population mean for , Non- Americans Ages 20-29 = 116 mL/min/1.73 sq.m. Ages 30-39 = 107 mL/min/1.73 sq.m. Ages 40-49 = 99 mL/min/1.73 sq.m. Ages 50-59 = 93 mL/min/1.73 sq.m. Ages 60-69 = 85 mL/min/1.73 sq.m. Ages 70+ = 75 mL/min/1.73 sq.m. Chronic Kidney Disease: Less than 60 mL/min/1.73 square meters End Stage Renal Disease: Less than 15 mL/min/1.73 square meters Performed By: #### C MP, CBC, GFR, ADIFF, ANEU #### [address] [address] .NEUABSon 05-07-2024 Neutrophil, Absolute 3.2 10 3/mcL Normal 2.9-6.2 [facility] ([place] Comment on above: Performed By: #### C MP, CBC, GFR, ADIFF, ANEU #### [address] [address] CBCon 05-07-2024 Erythrocyte distribution width (RBC) [Ratio] 12.6 % Normal 11.5-14.5 [facility] ([place] Comment on above: Performed By: #### C MP, CBC, GFR, ADIFF, ANEU #### [place] [address] Hematocrit (Bld) [Volume fraction] 44.8 % Normal 42.0-52.0 [facility] ([place] Comment on above: Performed By: #### C MP, CBC, GFR, ADIFF, ANEU #### [place] [address] Hgb 15.5 G/dL Normal 14.0-18.0 [facility] ([place] Comment on above: Performed By: #### C MP, CBC, GFR, ADIFF, ANEU #### [place] [address] MCH (RBC) [Entitic mass] 32.3 pg High 27.0-31.2 [facility] ([place] Comment on above: Performed By: #### C MP, CBC, GFR, ADIFF, ANEU #### [place] [address] MCHC 34.6 G/dL Normal 31.8-35.4 [facility] ([place] Comment on above: Performed By: #### C MP, CBC, GFR, ADIFF, ANEU #### [place] [address] MCV (RBC) [Entitic vol] 93.3 fL Normal 80.0-94.0 A [facility] ([place] Comment on above: Performed By: #### C MP, CBC, GFR, ADIFF, ANEU #### [address] [address] Platelet 283 10 3/mcL Normal 130-400 [facility] ([place] Comment on above: Performed By: #### C MP, CBC, GFR, ADIFF, ANEU #### [address] [address] Platelet mean volume (Bld) [Entitic vol] 8.1 fL Normal 7.4-10.4 [facility] ([place] Comment on above: Performed By: #### C MP, CBC, GFR, ADIFF, ANEU #### [address] [address] RBC 4.80 10 6/mcL Normal 4.04-6.13 [facility] ([place] Comment on above: Performed By: #### C MP, CBC, GFR, ADIFF, ANEU #### [address] [address] WBC 6.4 10 3/mcL Normal 4.6-10.8 [facility] ([place] Comment on above: Performed By: #### C MP, CBC, GFR, ADIFF, ANEU #### [address] [address] CMPon 05-07-2024 Albumin Level 4.4 G/dL Normal 3.5-5.0 [facility] ([place] Comment on above: Performed By: #### C MP, CBC, GFR, ADIFF, ANEU #### [address] [address] Albumin/Globulin [Mass ratio] 1.7 {ratio} Normal 1.1-2.5 [facility] ([place] Comment on above: Performed By: #### C MP, CBC, GFR, ADIFF, ANEU #### [address] [address] ALP [Catalytic activity/Vol] 61 U/L Normal 40-135 [facility] ([place] Comment on above: Performed By: #### C MP, CBC, GFR, ADIFF, ANEU #### [address] [address] ALT [Catalytic activity/Vol] 46 U/L Normal 16-63 [facility] ([place] Comment on above: Performed By: #### C MP, CBC, GFR, ADIFF, ANEU #### [address] [address] AST [Catalytic activity/Vol] 23 U/L Normal 10-40 [facility] ([place] Comment on above: Performed By: #### C MP, CBC, GFR, ADIFF, ANEU #### [address] [address] Bili Total 1.0 mg/dL Normal 0.2-1.0 [facility] ([place] Comment on above: Result Comment: Use of this assay is not recommended for patients undergoing treatment with eltrombopag due to the potential for falsely elevated results. Performed By: #### C MP, CBC, GFR, ADIFF, ANEU #### [address] [address] BUN/Creatinine Ratio 12 ratio Normal 7-27 [facility] ([place]) Comment on above: Performed By: #### C MP, CBC, GFR, ADIFF, ANEU #### [address] [address] Calcium [Mass/Vol] 9.6 mg/dL Normal 8.4-10.2 [facility] ([place]) Comment on above: Performed By: #### C MP, CBC, GFR, ADIFF, ANEU #### [address] [address] Chloride [Moles/Vol] 104 mmol/L Normal 98-107 [facility] ([place]) Comment on above: Performed By: #### C MP, CBC, GFR, ADIFF, ANEU #### [address] [address] CO2 [Moles/Vol] 30 mmol/L High 22-29 [facility] ([place] Comment on above: Performed By: #### C MP, CBC, GFR, ADIFF, ANEU #### [address] [address] Creatinine [Mass/Vol] 1.18 mg/dL Normal 0.70-1.30 [facility] ([place]) Comment on above: Performed By: #### C MP, CBC, GFR, ADIFF, ANEU #### [address] [address] Electrolyte Balance 10.0 mEq/L Normal 4.0-15.0 [facility] ([place]) Comment on above: Performed By: #### C MP, CBC, GFR, ADIFF, ANEU #### [address] [address] Globulin 2.6 G/dL Normal [facility] ([place] Comment on above: Performed By: #### C MP, CBC, GFR, ADIFF, ANEU #### [address] [address] Glucose [Mass/Vol] 85 mg/dL Normal 70-105 [facility] ([place] Comment on above: Performed By: #### C MP, CBC, GFR, ADIFF, ANEU #### [address] [address] Potassium [Moles/Vol] 4.6 mmol/L Normal 3.5-5.1 [facility] ([place]) Comment on above: Performed By: #### C MP, CBC, GFR, ADIFF, ANEU #### [address] [address] Sodium [Moles/Vol] 144 mmol/L Normal 136-145 [facility] ([place] Comment on above: Performed By: #### C MP, CBC, GFR, ADIFF, ANEU #### [address] [address] Total Protein 7.0 G/dL Normal 6.4-8.2 [facility] ([place] Comment on above: Performed By: #### C MP, CBC, GFR, ADIFF, ANEU #### [address] [address] Urea nitrogen [Mass/Vol] 14 mg/dL Normal 7-18 [facility] ([place] Comment on above: Performed By: #### C MP, CBC, GFR, ADIFF, ANEU #### [address] [address] .Auto Diffon 08-01-2023 Basophil, Absolute 0.1 10 3/mcL Normal 0.0-0.2 [facility] ([place]) Comment on above: Performed By: #### A JANY, ADIFF, CBC, CMP, GFR #### [address] [address] Basophils/100 WBC (Bld) 0.9 % Normal 0.0-2.5 A [facility] ([place] Comment on above: Performed By: #### A JANY, ADIFF, CBC, CMP, GFR #### [address] [address] Eosinophil, Absolute 0.2 10 3/mcL Normal 0.0-0.4 [facility] ([place] Comment on above: Performed By: #### A JANY, ADIFF, CBC, CMP, GFR #### [address] [address] Eosinophils/100 WBC (Bld) 2.6 % Normal 0.0-7.0 [facility] ([place] Comment on above: Performed By: #### A JANY, ADIFF, CBC, CMP, GFR #### [address] [address] Lymphocyte, Absolute 2.3 10 3/mcL Normal 0.8-3.9 [facility] ([place]) Comment on above: Performed By: #### A JANY, ADIFF, CBC, CMP, GFR #### [address] [address] Lymphocytes/100 WBC (Bld) 35.5 % Normal 10.0-50.0 [facility] ([place] Comment on above: Performed By: #### A JANY, ADIFF, CBC, CMP, GFR #### [address] [address] Monocyte, Absolute 0.5 10 3/mcL Normal 0.2-1.0 [facility] ([place]) Comment on above: Performed By: #### A JANY, ADIFF, CBC, CMP, GFR #### [address] [address] Monocytes/100 WBC (Bld) 7.9 % Normal 1.7-13.0 A [facility] ([place] Comment on above: Performed By: #### A JANY, ADIFF, CBC, CMP, GFR #### [address] [address] Neutrophils/100 WBC (Bld) 53.1 % Normal 37.0-80.0 [facility] ([place]) Comment on above: Performed By: #### A JANY, ADIFF, CBC, CMP, GFR #### [address] [address] .GFRon 08-01-2023 GFR 79 ml/min/1.73sqm Normal [facility] ([place]) Comment on above: Result Comment: GFR Population mean for , Non- Americans Ages 20-29 = 116 mL/min/1.73 sq.m. Ages 30-39 = 107 mL/min/1.73 sq.m. Ages 40-49 = 99 mL/min/1.73 sq.m. Ages 50-59 = 93 mL/min/1.73 sq.m. Ages 60-69 = 85 mL/min/1.73 sq.m. Ages 70+ = 75 mL/min/1.73 sq.m. Chronic Kidney Disease: Less than 60 mL/min/1.73 square meters End Stage Renal Disease: Less than 15 mL/min/1.73 square meters Performed By: #### A JANY, ADIFF, CBC, CMP, GFR #### [address] [address] GFR Non- 65 ml/min/1.73sqm Normal [facility] ([place]) Comment on above: Result Comment: GFR Population mean for , Non- Americans Ages 20-29 = 116 mL/min/1.73 sq.m. Ages 30-39 = 107 mL/min/1.73 sq.m. Ages 40-49 = 99 mL/min/1.73 sq.m. Ages 50-59 = 93 mL/min/1.73 sq.m. Ages 60-69 = 85 mL/min/1.73 sq.m. Ages 70+ = 75 mL/min/1.73 sq.m. Chronic Kidney Disease: Less than 60 mL/min/1.73 square meters End Stage Renal Disease: Less than 15 mL/min/1.73 square meters Performed By: #### A JANY, ADIFF, CBC, CMP, GFR #### [place] [id number] .NEUABSon 08-01-2023 Neutrophil, Absolute 3.4 10 3/mcL Normal 2.9-6.2 [facility] ([place]) Comment on above: Performed By: #### A JANY, ADIFF, CBC, CMP, GFR #### [place] [id number] CBCon 08-01-2023 Erythrocyte distribution width (RBC) [Ratio] 12.9 % Normal 11.5-14.5 [facility] ([place] Comment on above: Performed By: #### A JANY, ADIFF, CBC, CMP, GFR #### [place] [address] Hematocrit (Bld) [Volume fraction] 46.2 % Normal 42.0-52.0 [facility] ([place] Comment on above: Performed By: #### A JANY, ADIFF, CBC, CMP, GFR #### [place] [id number] Hgb 15.9 G/dL Normal 14.0-18.0 [facility] ([place] Comment on above: Performed By: #### A JANY, ADIFF, CBC, CMP, GFR #### [place] [address] MCH (RBC) [Entitic mass] 31.2 pg Normal 27.0-31.2 [facility] ([place] Comment on above: Performed By: #### A JANY, ADIFF, CBC, CMP, GFR #### [place] [id number] MCHC 34.4 G/dL Normal 31.8-35.4 [facility] ([place] Comment on above: Performed By: #### A JANY, ADIFF, CBC, CMP, GFR #### [address] [address] MCV (RBC) [Entitic vol] 90.8 fL Normal 80.0-94.0 A [facility] ([place] Comment on above: Performed By: #### A JANY, ADIFF, CBC, CMP, GFR #### [address] [address] Platelet 279 10 3/mcL Normal 130-400 [facility] ([place] Comment on above: Performed By: #### A JANY, ADIFF, CBC, CMP, GFR #### [address] [address] Platelet mean volume (Bld) [Entitic vol] 7.9 fL Normal 7.4-10.4 [facility] ([place] Comment on above: Performed By: #### A JANY, ADIFF, CBC, CMP, GFR #### [address] [address] RBC 5.08 10 6/mcL Normal 4.04-6.13 [facility] ([place] Comment on above: Performed By: #### A JANY, ADIFF, CBC, CMP, GFR #### [address] [address] WBC 6.4 10 3/mcL Normal 4.6-10.8 [facility] ([place] Comment on above: Performed By: #### A JANY, ADIFF, CBC, CMP, GFR #### [address] [address] CMPon 08-01-2023 Albumin Level 4.4 G/dL Normal 3.5-5.0 [facility] ([place] Comment on above: Performed By: #### A JANY, ADIFF, CBC, CMP, GFR #### [address] [address] Albumin/Globulin [Mass ratio] 1.5 {ratio} Normal 1.1-2.5 [facility] ([place] Comment on above: Performed By: #### A JANY, ADIFF, CBC, CMP, GFR #### [address] [address] ALP [Catalytic activity/Vol] 61 U/L Normal 40-135 [facility] ([place] Comment on above: Performed By: #### A JANY, ADIFF, CBC, CMP, GFR #### [address] [address] ALT [Catalytic activity/Vol] 55 U/L Normal 16-63 [facility] ([place] Comment on above: Performed By: #### A JANY, ADIFF, CBC, CMP, GFR #### [address] [address] AST [Catalytic activity/Vol] 32 U/L Normal 10-40 [facility] ([place] Comment on above: Performed By: #### A JANY, ADIFF, CBC, CMP, GFR #### [address] [address] Bili Total 1.0 mg/dL Normal 0.2-1.0 [facility] ([place] Comment on above: Result Comment: Use of this assay is not recommended for patients undergoing treatment with eltrombopag due to the potential for falsely elevated results. Performed By: #### A JANY, ADIFF, CBC, CMP, GFR #### [address] [address] BUN/Creatinine Ratio 10 ratio Normal 7-27 [facility] ([place]) Comment on above: Performed By: #### A JANY, ADIFF, CBC, CMP, GFR #### [address] [address] Calcium [Mass/Vol] 9.2 mg/dL Normal 8.4-10.2 [facility] ([place] Comment on above: Performed By: #### A JANY, ADIFF, CBC, CMP, GFR #### [address] [address] Chloride [Moles/Vol] 103 mmol/L Normal 98-107 [facility] ([place]) Comment on above: Performed By: #### A JANY, ADIFF, CBC, CMP, GFR #### [address] [address] CO2 [Moles/Vol] 28 mmol/L Normal 22-29 [facility] ([place] Comment on above: Performed By: #### A JANY, ADIFF, CBC, CMP, GFR #### [address] [address] Creatinine [Mass/Vol] 1.23 mg/dL Normal 0.70-1.30 [facility] ([place]) Comment on above: Performed By: #### A JANY, ADIFF, CBC, CMP, GFR #### [place] [id number] Electrolyte Balance 10.0 mEq/L Normal 4.0-15.0 [facility] ([place] Comment on above: Performed By: #### A JANY, ADIFF, CBC, CMP, GFR #### [place] [address] Globulin 2.9 G/dL Normal [facility] ([place] Comment on above: Performed By: #### A JANY, ADIFF, CBC, CMP, GFR #### [place] [address] Glucose [Mass/Vol] 128 mg/dL High 70-105 [facility] ([place] Comment on above: Performed By: #### A JANY, ADIFF, CBC, CMP, GFR #### [place] [address] Potassium [Moles/Vol] 4.1 mmol/L Normal 3.5-5.1 [facility] ([place]) Comment on above: Performed By: #### A JANY, ADIFF, CBC, CMP, GFR #### [place] [address] Sodium [Moles/Vol] 141 mmol/L Normal 136-145 [facility] ([place] Comment on above: Performed By: #### A JANY, ADIFF, CBC, CMP, GFR #### [place] [address] Total Protein 7.3 G/dL Normal 6.4-8.2 [facility] ([place] Comment on above: Performed By: #### A JANY, ADIFF, CBC, CMP, GFR #### [place] [address] [place], [place] [address] Urea nitrogen [Mass/Vol] 12 mg/dL Normal 7-18 [facility] ([place] Comment on above: Performed By: #### A JANY, ADIFF, CBC, CMP, GFR #### [place] [address] [place], [place] [address] LABORATORYOrdered By: SYSTEM SYSTEM on 08-01-2023 Albumin BCP dye [Mass/Vol] 4.4 G/dL Invalid Interpretation Code 3.5 - 5.0 G/dL AO ADM SS Albumin/Globulin [Mass ratio] 1.5 {ratio} Invalid Interpretation Code 1.1 - 2.5 ratio AO ADM SS ALP [Catalytic activity/Vol] 61 U/L Invalid Interpretation Code 40 - 135 U/L AO ADM SS ALT With P-5'-P [Catalytic activity/Vol] 55 U/L Invalid Interpretation Code 16 - 63 U/L AO ADM SS AST With P-5'-P [Catalytic activity/Vol] 32 U/L Invalid Interpretation Code 10 - 40 U/L AO ADM SS Basophil, Absolute 0.1 103/mcL Invalid Interpretation Code 0.0 - 0.2 10^3/mcL AO Workflow SS Basophils/100 WBC (Bld) 0.9 % Invalid Interpretation Code 0.0 - 2.5 % AO Workflow SS Bilirubin [Mass/Vol] 1.0 mg/dL Invalid Interpretation Code 0.2 - 1.0 mg/dL AO ADM SS Comment on above: Interpretive Data: U se of this assay is not recommended for patients undergoing treatment with eltrombopag due to the potential for falsely elevated results. Calcium [Mass/Vol] 9.2 mg/dL Invalid Interpretation Code 8.4 - 10.2 mg/dL AO ADM SS Chloride [Moles/Vol] 103 mmol/L Invalid Interpretation Code 98 - 107 mmol/L AO ADM SS CO2 [Moles/Vol] 28 mmol/L Invalid Interpretation Code 22 - 29 mmol/L AO ADM SS Creatinine [Mass/Vol] 1.23 mg/dL Invalid Interpretation Code 0.70 - 1.30 mg/dL AO ADM SS Electrolyte Balance 10.0 mEq/L Invalid Interpretation Code 4.0 - 15.0 mEq/L AO ADM SS Eosinophil, Absolute 0.2 103/mcL Invalid Interpretation Code 0.0 - 0.4 10^3/mcL AO Workflow SS Eosinophils/100 WBC (Bld) 2.6 % Invalid Interpretation Code 0.0 - 7.0 % AO Workflow SS Erythrocyte distribution width (RBC) [Ratio] 12.9 % Invalid Interpretation Code 11.5 - 14.5 % AO Workflow SS GFR/1.73 sq M.predicted among blacks MDRD (S/P/Bld) [Vol rate/Area] 79 ml/min/1.73sqm Invalid Interpretation Code AO Chemistry S Comment on above: Interpretive Data: GFR Population mean for , Non- Americans Ages 20-29 = 116 mL/min/1.73 sq.m. Ages 30-39 = 107 mL/min/1.73 sq.m. Ages 40-49 = 99 mL/min/1.73 sq.m. Ages 50-59 = 93 mL/min/1.73 sq.m. Ages 60-69 = 85 mL/min/1.73 sq.m. Ages 70+ = 75 mL/min/1.73 sq.m. Chronic Kidney Disease: Less than 60 mL/min/1.73 square meters End Stage Renal Disease: Less than 15 mL/min/1.73 square meters GFR/1.73 sq M.predicted among non-blacks MDRD (S/P/Bld) [Vol rate/Area] 65 ml/min/1.73sqm Invalid Interpretation Code AO Chemistry S Comment on above: Interpretive Data: GFR Population mean for , Non- Americans Ages 20-29 = 116 mL/min/1.73 sq.m. Ages 30-39 = 107 mL/min/1.73 sq.m. Ages 40-49 = 99 mL/min/1.73 sq.m. Ages 50-59 = 93 mL/min/1.73 sq.m. Ages 60-69 = 85 mL/min/1.73 sq.m. Ages 70+ = 75 mL/min/1.73 sq.m. Chronic Kidney Disease: Less than 60 mL/min/1.73 square meters End Stage Renal Disease: Less than 15 mL/min/1.73 square meters Globulin 2.9 G/dL Invalid Interpretation Code AO ADM SS Glucose [Mass/Vol] 128 mg/dL Invalid Interpretation Code 70 - 105 mg/dL AO ADM SS Hematocrit (Bld) [Volume fraction] 46.2 % Invalid Interpretation Code 42.0 - 52.0 % AO Workflow SS Hemoglobin (Bld) [Mass/Vol] 15.9 G/dL Invalid Interpretation Code 14.0 - 18.0 G/dL AO Workflow SS Lymphocyte, Absolute 2.3 103/mcL Invalid Interpretation Code 0.8 - 3.9 10^3/mcL AO Workflow SS Lymphocytes/100 WBC (Bld) 35.5 % Invalid Interpretation Code 10.0 - 50.0 % AO Workflow SS MCH (RBC) [Entitic mass] 31.2 pg Invalid Interpretation Code 27.0 - 31.2 pg AO Workflow SS MCHC 34.4 G/dL Invalid Interpretation Code 31.8 - 35.4 G/dL AO Workflow SS MCV (RBC) [Entitic vol] 90.8 fL Invalid Interpretation Code 80.0 - 94.0 fL AO Workflow SS Monocyte, Absolute 0.5 103/mcL Invalid Interpretation Code 0.2 - 1.0 10^3/mcL AO Workflow SS Monocytes/100 WBC (Bld) 7.9 % Invalid Interpretation Code 1.7 - 13.0 % AO Workflow SS Neutrophil, Absolute 3.4 103/mcL Invalid Interpretation Code 2.9 - 6.2 10^3/mcL AO Workflow SS Neutrophils/100 WBC (Bld) 53.1 % Invalid Interpretation Code 37.0 - 80.0 % AO Workflow SS Platelet mean volume (Bld) [Entitic vol] 7.9 fL Invalid Interpretation Code 7.4 - 10.4 fL AO Workflow SS Platelets (Bld) [#/Vol] 279 103/mcL Invalid Interpretation Code 130 - 400 10^3/mcL AO Workflow SS Potassium [Moles/Vol] 4.1 mmol/L Invalid Interpretation Code 3.5 - 5.1 mmol/L AO ADM SS Protein [Mass/Vol] 7.3 G/dL Invalid Interpretation Code 6.4 - 8.2 G/dL AO ADM SS RBC (Bld) [#/Vol] 5.08 106/mcL Invalid Interpretation Code 4.04 - 6.13 10^6/mcL AO Workflow SS Sodium [Moles/Vol] 141 mmol/L Invalid Interpretation Code 136 - 145 mmol/L AO ADM SS Urea nitrogen [Mass/Vol] 12 mg/dL Invalid Interpretation Code 7 - 18 mg/dL AO ADM SS Urea nitrogen/Creatinine [Mass ratio] 10 ratio Invalid Interpretation Code 7 - 27 ratio AO ADM SS WBC (Bld) [#/Vol] 6.4 103/mcL Invalid Interpretation Code 4.6 - 10.8 10^3/mcL AO Workflow SS .GFRon 06-09-2023 GFR 75 ml/min/1.73sqm Normal [facility] ([place] Comment on above: Result Comment: GFR Population mean for , Non- Americans Ages 20-29 = 116 mL/min/1.73 sq.m. Ages 30-39 = 107 mL/min/1.73 sq.m. Ages 40-49 = 99 mL/min/1.73 sq.m. Ages 50-59 = 93 mL/min/1.73 sq.m. Ages 60-69 = 85 mL/min/1.73 sq.m. Ages 70+ = 75 mL/min/1.73 sq.m. Chronic Kidney Disease: Less than 60 mL/min/1.73 square meters End Stage Renal Disease: Less than 15 mL/min/1.73 square meters Performed By: #### C MP, CBC, GFR, ADIFF, ANEU #### [place] [address] [address] GFR Non- 62 ml/min/1.73sqm Normal [facility] ([place] Comment on above: Result Comment: GFR Population mean for , Non- Americans Ages 20-29 = 116 mL/min/1.73 sq.m. Ages 30-39 = 107 mL/min/1.73 sq.m. Ages 40-49 = 99 mL/min/1.73 sq.m. Ages 50-59 = 93 mL/min/1.73 sq.m. Ages 60-69 = 85 mL/min/1.73 sq.m. Ages 70+ = 75 mL/min/1.73 sq.m. Chronic Kidney Disease: Less than 60 mL/min/1.73 square meters End Stage Renal Disease: Less than 15 mL/min/1.73 square meters Performed By: #### C MP, CBC, GFR, ADIFF, ANEU #### [address] [address] CMPon 06-09-2023 Albumin Level 4.3 G/dL Normal 3.5-5.0 [facility] ([place] Comment on above: Order Comment: do no t draw if this is a duplicate from his broomcorn thresher. Performed By: #### C MP, CBC, GFR, ADIFF, ANEU #### [address] [address] Albumin/Globulin [Mass ratio] 1.5 {ratio} Normal 1.1-2.5 [facility] ([place]) Comment on above: Order Comment: do no t draw if this is a duplicate from his broomcorn thresher. Performed By: #### C MP, CBC, GFR, ADIFF, ANEU #### [address] [address] ALP [Catalytic activity/Vol] 65 U/L Normal 40-135 [facility] ([place] Comment on above: Order Comment: do no t draw if this is a duplicate from his broomcorn thresher. Performed By: #### C MP, CBC, GFR, ADIFF, ANEU #### [address] [address] ALT [Catalytic activity/Vol] 60 U/L Normal 16-63 [facility] ([place] Comment on above: Order Comment: do no t draw if this is a duplicate from his broomcorn thresher. Performed By: #### C MP, CBC, GFR, ADIFF, ANEU #### [address] [address] AST [Catalytic activity/Vol] 27 U/L Normal 10-40 [facility] ([place] Comment on above: Order Comment: do no t draw if this is a duplicate from his broomcorn thresher. Performed By: #### C MP, CBC, GFR, ADIFF, ANEU #### [address] [id number] Bili Total 1.0 mg/dL Normal 0.2-1.0 [facility] ([place]) Comment on above: Order Comment: do no t draw if this is a duplicate from his broomcorn thresher. Result Comment: Use of this assay is not recommended for patients undergoing treatment with eltrombopag due to the potential for falsely elevated results. Performed By: #### C MP, CBC, GFR, ADIFF, ANEU #### [address] [address] BUN/Creatinine Ratio 13 ratio Normal 7-27 [facility] ([place]) Comment on above: Order Comment: do no t draw if this is a duplicate from his broomcorn thresher. Performed By: #### C MP, CBC, GFR, ADIFF, ANEU #### [address] [address] Calcium [Mass/Vol] 9.0 mg/dL Normal 8.4-10.2 [facility] ([place]) Comment on above: Order Comment: do no t draw if this is a duplicate from his broomcorn thresher. Performed By: #### C MP, CBC, GFR, ADIFF, ANEU #### [place] [id number] Chloride [Moles/Vol] 106 mmol/L Normal 98-107 [facility] ([place]) Comment on above: Order Comment: do no t draw if this is a duplicate from his broomcorn thresher. Performed By: #### C MP, CBC, GFR, ADIFF, ANEU #### [place] [id number] CO2 [Moles/Vol] 31 mmol/L High 22-29 [facility] ([place]) Comment on above: Order Comment: do no t draw if this is a duplicate from his broomcorn thresher. Performed By: #### C MP, CBC, GFR, ADIFF, ANEU #### [address] [address] Creatinine [Mass/Vol] 1.28 mg/dL Normal 0.70-1.30 [facility] ([place]) Comment on above: Order Comment: do no t draw if this is a duplicate from his broomcorn thresher. Performed By: #### C MP, CBC, GFR, ADIFF, ANEU #### [address] [address] Electrolyte Balance 7.0 mEq/L Normal 4.0-15.0 [facility] ([place]) Comment on above: Order Comment: do no t draw if this is a duplicate from his broomcorn thresher. Performed By: #### C MP, CBC, GFR, ADIFF, ANEU #### [address] [address] Globulin 2.8 G/dL Normal [facility] ([place]) Comment on above: Order Comment: do no t draw if this is a duplicate from his broomcorn thresher. Performed By: #### C MP, CBC, GFR, ADIFF, ANEU #### [address] [address] Glucose [Mass/Vol] 102 mg/dL Normal 70-105 [facility] ([place]) Comment on above: Order Comment: do no t draw if this is a duplicate from his broomcorn thresher. Performed By: #### C MP, CBC, GFR, ADIFF, ANEU #### [address] [address] Potassium [Moles/Vol] 4.4 mmol/L Normal 3.5-5.1 [facility] ([place]) Comment on above: Order Comment: do no t draw if this is a duplicate from his broomcorn thresher. Performed By: #### C MP, CBC, GFR, ADIFF, ANEU #### [address] [address] Sodium [Moles/Vol] 144 mmol/L Normal 136-145 [facility] ([place]) Comment on above: Order Comment: do no t draw if this is a duplicate from his broomcorn thresher. Performed By: #### C MP, CBC, GFR, ADIFF, ANEU #### [address] [address] Total Protein 7.1 G/dL Normal 6.4-8.2 [facility] ([place]) Comment on above: Order Comment: do no t draw if this is a duplicate from his broomcorn thresher. Performed By: #### C MP, CBC, GFR, ADIFF, ANEU #### [address] [address] Urea nitrogen [Mass/Vol] 17 mg/dL Normal 7-18 [facility] ([place]) Comment on above: Order Comment: do no t draw if this is a duplicate from his broomcorn thresher. Performed By: #### C MP, CBC, GFR, ADIFF, ANEU #### [facility] [address] [place], [place] [address] LABORATORYOrdered By: SYSTEM SYSTEM on 06-09-2023 Albumin BCP dye [Mass/Vol] 4.3 G/dL Invalid Interpretation Code 3.5 - 5.0 G/dL AO ADM SS Albumin/Globulin [Mass ratio] 1.5 {ratio} Invalid Interpretation Code 1.1 - 2.5 ratio AO ADM SS ALP [Catalytic activity/Vol] 65 U/L Invalid Interpretation Code 40 - 135 U/L AO ADM SS ALT With P-5'-P [Catalytic activity/Vol] 60 U/L Invalid Interpretation Code 16 - 63 U/L AO ADM SS AST With P-5'-P [Catalytic activity/Vol] 27 U/L Invalid Interpretation Code 10 - 40 U/L AO ADM SS Bilirubin [Mass/Vol] 1.0 mg/dL Invalid Interpretation Code 0.2 - 1.0 mg/dL AO ADM SS Comment on above: Interpretive Data: U se of this assay is not recommended for patients undergoing treatment with eltrombopag due to the potential for falsely elevated results. Calcium [Mass/Vol] 9.0 mg/dL Invalid Interpretation Code 8.4 - 10.2 mg/dL AO ADM SS Chloride [Moles/Vol] 106 mmol/L Invalid Interpretation Code 98 - 107 mmol/L AO ADM SS CO2 [Moles/Vol] 31 mmol/L Invalid Interpretation Code 22 - 29 mmol/L AO ADM SS Creatinine [Mass/Vol] 1.28 mg/dL Invalid Interpretation Code 0.70 - 1.30 mg/dL AO ADM SS Electrolyte Balance 7.0 mEq/L Invalid Interpretation Code 4.0 - 15.0 mEq/L AO ADM SS GFR/1.73 sq M.predicted among blacks MDRD (S/P/Bld) [Vol rate/Area] 75 ml/min/1.73sqm Invalid Interpretation Code AO Chemistry S Comment on above: Interpretive Data: GFR Population mean for , Non- Americans Ages 20-29 = 116 mL/min/1.73 sq.m. Ages 30-39 = 107 mL/min/1.73 sq.m. Ages 40-49 = 99 mL/min/1.73 sq.m. Ages 50-59 = 93 mL/min/1.73 sq.m. Ages 60-69 = 85 mL/min/1.73 sq.m. Ages 70+ = 75 mL/min/1.73 sq.m. Chronic Kidney Disease: Less than 60 mL/min/1.73 square meters End Stage Renal Disease: Less than 15 mL/min/1.73 square meters GFR/1.73 sq M.predicted among non-blacks MDRD (S/P/Bld) [Vol rate/Area] 62 ml/min/1.73sqm Invalid Interpretation Code AO Chemistry S Comment on above: Interpretive Data: GFR Population mean for , Non- Americans Ages 20-29 = 116 mL/min/1.73 sq.m. Ages 30-39 = 107 mL/min/1.73 sq.m. Ages 40-49 = 99 mL/min/1.73 sq.m. Ages 50-59 = 93 mL/min/1.73 sq.m. Ages 60-69 = 85 mL/min/1.73 sq.m. Ages 70+ = 75 mL/min/1.73 sq.m. Chronic Kidney Disease: Less than 60 mL/min/1.73 square meters End Stage Renal Disease: Less than 15 mL/min/1.73 square meters Globulin 2.8 G/dL Invalid Interpretation Code AO ADM SS Glucose [Mass/Vol] 102 mg/dL Invalid Interpretation Code 70 - 105 mg/dL AO ADM SS Potassium [Moles/Vol] 4.4 mmol/L Invalid Interpretation Code 3.5 - 5.1 mmol/L AO ADM SS Protein [Mass/Vol] 7.1 G/dL Invalid Interpretation Code 6.4 - 8.2 G/dL AO ADM SS Sodium [Moles/Vol] 144 mmol/L Invalid Interpretation Code 136 - 145 mmol/L AO ADM SS Urea nitrogen [Mass/Vol] 17 mg/dL Invalid Interpretation Code 7 - 18 mg/dL AO ADM SS Urea nitrogen/Creatinine [Mass ratio] 13 ratio Invalid Interpretation Code 7 - 27 ratio AO ADM SS LABORATORYOrdered By: Antonia Ramires on 06-09-2023 Cholesterol [Mass/Vol] 216 mg/dL Invalid Interpretation Code 0 - 200 mg/dL AO ADM SS Comment on above: Interpretive Data: C holesterol Reference Interval: Less than 200 Desirable 200-239 Borderline high risk 240 and above High risk Cholesterol in HDL [Mass/Vol] 39 mg/dL Invalid Interpretation Code 40 - 60 mg/dL AO ADM SS Cholesterol in LDL [Mass/Vol] 117 mg/dL Invalid Interpretation Code 0 - 130 mg/dL AO ADM SS Triglyceride [Mass/Vol] 301 mg/dL Invalid Interpretation Code 0 - 150 mg/dL AO ADM SS Comment on above: Interpretive Data: T riglyceride Reference Interval: Less than 150 Normal 150-199 Borderline high risk 200-499 High risk 500 or higher Very high risk LIPIDon 06-09-2023 Cholesterol [Mass/Vol] 216 mg/dL High 0-200 [facility] ([place]) Comment on above: Result Comment: Chol esterol Reference Interval: Less than 200 Desirable 200-239 Borderline high risk 240 and above High risk Performed By: #### C MP, CBC, GFR, ADIFF, ANEU #### [address] [address] Cholesterol in HDL [Mass/Vol] 39 mg/dL Low 40-60 [facility] ([place]) Comment on above: Performed By: #### C MP, CBC, GFR, ADIFF, ANEU #### [address] [address] Cholesterol in LDL [Mass/Vol] 117 mg/dL Normal 0-130 [facility] ([place]) Comment on above: Performed By: #### C MP, CBC, GFR, ADIFF, ANEU #### [address] [address] Triglyceride [Mass/Vol] 301 mg/dL High 0-150 [facility] ([place]) Comment on above: Result Comment: Trig lyceride Reference Interval: Less than 150 Normal 150-199 Borderline high risk 200-499 High risk 500 or higher Very high risk Performed By: #### C MP, CBC, GFR, ADIFF, ANEU #### [address] [address] LABORATORYOrdered By: SYSTEM SYSTEM on 01-21-2023 Albumin BCP dye [Mass/Vol] 3.9 G/dL Invalid Interpretation Code 3.5 - 5.0 G/dL AO ADM SS Albumin/Globulin [Mass ratio] 1.5 {ratio} Invalid Interpretation Code 1.1 - 2.5 ratio AO ADM SS ALP [Catalytic activity/Vol] 75 U/L Invalid Interpretation Code 40 - 135 U/L AO ADM SS ALT With P-5'-P [Catalytic activity/Vol] 52 U/L Invalid Interpretation Code 16 - 63 U/L AO ADM SS AST With P-5'-P [Catalytic activity/Vol] 30 U/L Invalid Interpretation Code 10 - 40 U/L AO ADM SS Bilirubin [Mass/Vol] 1.2 mg/dL Invalid Interpretation Code 0.2 - 1.0 mg/dL AO ADM SS Calcium [Mass/Vol] 9.0 mg/dL Invalid Interpretation Code 8.4 - 10.2 mg/dL AO ADM SS Chloride [Moles/Vol] 106 mmol/L Invalid Interpretation Code 98 - 107 mmol/L AO ADM SS CO2 [Moles/Vol] 27 mmol/L Invalid Interpretation Code 22 - 29 mmol/L AO ADM SS Creatinine [Mass/Vol] 1.08 mg/dL Invalid Interpretation Code 0.70 - 1.30 mg/dL AO ADM SS Electrolyte Balance 8.0 mEq/L Invalid Interpretation Code 4.0 - 15.0 mEq/L AO ADM SS GFR 91 ml/min/1.73sqm Invalid Interpretation Code AO Chemistry S GFR Non- 75 ml/min/1.73sqm Invalid Interpretation Code AO Chemistry S Globulin 2.6 G/dL Invalid Interpretation Code AO ADM SS Glucose [Mass/Vol] 97 mg/dL Invalid Interpretation Code 70 - 105 mg/dL AO ADM SS Potassium [Moles/Vol] 4.3 mmol/L Invalid Interpretation Code 3.5 - 5.1 mmol/L AO ADM SS Protein [Mass/Vol] 6.5 G/dL Invalid Interpretation Code 6.4 - 8.2 G/dL AO ADM SS Sodium [Moles/Vol] 141 mmol/L Invalid Interpretation Code 136 - 145 mmol/L AO ADM SS Urea nitrogen [Mass/Vol] 21 mg/dL Invalid Interpretation Code 7 - 18 mg/dL AO ADM SS Urea nitrogen/Creatinine [Mass ratio] 19 ratio Invalid Interpretation Code 7 - 27 ratio AO ADM SS LABORATORYOrdered By: Mariana Steward on 01-21-2023 Basophil, Absolute 0.1 103/mcL Invalid Interpretation Code 0.0 - 0.2 10^3/mcL AO Workflow SS Basophils/100 WBC (Bld) 0.9 % Invalid Interpretation Code 0.0 - 2.5 % AO Workflow SS Eosinophil, Absolute 0.2 103/mcL Invalid Interpretation Code 0.0 - 0.4 10^3/mcL AO Workflow SS Eosinophils/100 WBC (Bld) 2.7 % Invalid Interpretation Code 0.0 - 7.0 % AO Workflow SS Erythrocyte distribution width (RBC) [Ratio] 12.9 % Invalid Interpretation Code 11.5 - 14.5 % AO Workflow SS Hematocrit (Bld) [Volume fraction] 43.6 % Invalid Interpretation Code 42.0 - 52.0 % AO Workflow SS Hemoglobin (Bld) [Mass/Vol] 15.0 G/dL Invalid Interpretation Code 14.0 - 18.0 G/dL AO Workflow SS Lymphocyte, Absolute 1.8 103/mcL Invalid Interpretation Code 0.8 - 3.9 10^3/mcL AO Workflow SS Lymphocytes/100 WBC (Bld) 25.2 % Invalid Interpretation Code 10.0 - 50.0 % AO Workflow SS MCH (RBC) [Entitic mass] 30.8 pg Invalid Interpretation Code 27.0 - 31.2 pg AO Workflow SS MCHC 34.4 G/dL Invalid Interpretation Code 31.8 - 35.4 G/dL AO Workflow SS MCV (RBC) [Entitic vol] 89.5 fL Invalid Interpretation Code 80.0 - 94.0 fL AO Workflow SS Monocyte, Absolute 0.5 103/mcL Invalid Interpretation Code 0.2 - 1.0 10^3/mcL AO Workflow SS Monocytes/100 WBC (Bld) 6.3 % Invalid Interpretation Code 1.7 - 13.0 % AO Workflow SS Neutrophil, Absolute 4.7 103/mcL Invalid Interpretation Code 2.9 - 6.2 10^3/mcL AO Workflow SS Neutrophils/100 WBC (Bld) 64.9 % Invalid Interpretation Code 37.0 - 80.0 % AO Workflow SS Platelet mean volume (Bld) [Entitic vol] 8.0 fL Invalid Interpretation Code 7.4 - 10.4 fL AO Workflow SS Platelets (Bld) [#/Vol] 293 103/mcL Invalid Interpretation Code 130 - 400 10^3/mcL AO Workflow SS RBC (Bld) [#/Vol] 4.87 106/mcL Invalid Interpretation Code 4.04 - 6.13 10^6/mcL AO Workflow SS WBC (Bld) [#/Vol] 7.2 103/mcL Invalid Interpretation Code 4.6 - 10.8 10^3/mcL AO Workflow SS LABORATORYOrdered By: [employer]Sh[employer] SYSTEM on 10-25-2022 Albumin BCP dye [Mass/Vol] 4.1 G/dL Invalid Interpretation Code 3.5 - 5.0 G/dL AO ADM SS Albumin/Globulin [Mass ratio] 1.4 {ratio} Invalid Interpretation Code 1.1 - 2.5 ratio AO ADM SS ALP [Catalytic activity/Vol] 83 U/L Invalid Interpretation Code 40 - 135 U/L AO ADM SS ALT With P-5'-P [Catalytic activity/Vol] 51 U/L Invalid Interpretation Code 16 - 63 U/L AO ADM SS AST With P-5'-P [Catalytic activity/Vol] 27 U/L Invalid Interpretation Code 10 - 40 U/L AO ADM SS Bili Indirect 0.5 mg/dL Invalid Interpretation Code AO Chemistry S Bilirubin [Mass/Vol] 0.7 mg/dL Invalid Interpretation Code 0.2 - 1.0 mg/dL AO ADM SS Bilirubin.direct [Mass/Vol] 0.2 mg/dL Invalid Interpretation Code 0.0 - 0.2 mg/dL AO ADM SS Globulin 2.9 G/dL Invalid Interpretation Code AO ADM SS Protein [Mass/Vol] 7.0 G/dL Invalid Interpretation Code 6.4 - 8.2 G/dL AO ADM SS LABORATORYOrdered By: Antonia Ramires on 10-25-2022 Basophil, Absolute 0.1 103/mcL Invalid Interpretation Code 0.0 - 0.2 10^3/mcL AO Workflow SS Basophils/100 WBC (Bld) 1.0 % Invalid Interpretation Code 0.0 - 2.5 % AO Workflow SS Eosinophil, Absolute 0.2 103/mcL Invalid Interpretation Code 0.0 - 0.4 10^3/mcL AO Workflow SS Eosinophils/100 WBC (Bld) 2.9 % Invalid Interpretation Code 0.0 - 7.0 % AO Workflow SS Erythrocyte distribution width (RBC) [Ratio] 13.3 % Invalid Interpretation Code 11.5 - 14.5 % AO Workflow SS Hematocrit (Bld) [Volume fraction] 43.4 % Invalid Interpretation Code 42.0 - 52.0 % AO Workflow SS Hemoglobin (Bld) [Mass/Vol] 14.7 G/dL Invalid Interpretation Code 14.0 - 18.0 G/dL AO Workflow SS Lymphocyte, Absolute 1.9 103/mcL Invalid Interpretation Code 0.8 - 3.9 10^3/mcL AO Workflow SS Lymphocytes/100 WBC (Bld) 31.1 % Invalid Interpretation Code 10.0 - 50.0 % AO Workflow SS MCH (RBC) [Entitic mass] 30.6 pg Invalid Interpretation Code 27.0 - 31.2 pg AO Workflow SS MCHC 33.8 G/dL Invalid Interpretation Code 31.8 - 35.4 G/dL AO Workflow SS MCV (RBC) [Entitic vol] 90.5 fL Invalid Interpretation Code 80.0 - 94.0 fL AO Workflow SS Monocyte, Absolute 0.5 103/mcL Invalid Interpretation Code 0.2 - 1.0 10^3/mcL AO Workflow SS Monocytes/100 WBC (Bld) 8.6 % Invalid Interpretation Code 1.7 - 13.0 % AO Workflow SS Neutrophil, Absolute 3.4 103/mcL Invalid Interpretation Code 2.9 - 6.2 10^3/mcL AO Workflow SS Neutrophils/100 WBC (Bld) 56.4 % Invalid Interpretation Code 37.0 - 80.0 % AO Workflow SS Platelet mean volume (Bld) [Entitic vol] 7.8 fL Invalid Interpretation Code 7.4 - 10.4 fL AO Workflow SS Platelets (Bld) [#/Vol] 317 103/mcL Invalid Interpretation Code 130 - 400 10^3/mcL AO Workflow SS RBC (Bld) [#/Vol] 4.80 106/mcL Invalid Interpretation Code 4.04 - 6.13 10^6/mcL AO Workflow SS WBC (Bld) [#/Vol] 6.0 103/mcL Invalid Interpretation Code 4.6 - 10.8 10^3/mcL AO Workflow SS LABORATORYOrdered By: Verito Bedoya on 03-24-2022 Albumin BCP dye [Mass/Vol] 4.2 G/dL Invalid Interpretation Code 3.5 - 5.0 G/dL AO ADM SS Albumin/Globulin [Mass ratio] 1.6 {ratio} Invalid Interpretation Code 1.1 - 2.5 ratio AO ADM SS ALP [Catalytic activity/Vol] 76 U/L Invalid Interpretation Code 40 - 135 U/L AO ADM SS ALT With P-5'-P [Catalytic activity/Vol] 48 U/L Invalid Interpretation Code 16 - 63 U/L AO ADM SS AST With P-5'-P [Catalytic activity/Vol] 26 U/L Invalid Interpretation Code 10 - 40 U/L AO ADM SS Basophil, Absolute 0.0 103/mcL Invalid Interpretation Code 0.0 - 0.2 10^3/mcL AO Workflow SS Basophils/100 WBC (Bld) 0.5 % Invalid Interpretation Code 0.0 - 2.5 % AO Workflow SS Bilirubin [Mass/Vol] 1.2 mg/dL Invalid Interpretation Code 0.2 - 1.0 mg/dL AO ADM SS Calcium [Mass/Vol] 9.9 mg/dL Invalid Interpretation Code 8.4 - 10.2 mg/dL AO ADM SS Chloride [Moles/Vol] 103 mmol/L Invalid Interpretation Code 98 - 107 mmol/L AO ADM SS CO2 [Moles/Vol] 30 mmol/L Invalid Interpretation Code 22 - 29 mmol/L AO ADM SS Creatinine [Mass/Vol] 1.22 mg/dL Invalid Interpretation Code 0.70 - 1.30 mg/dL AO ADM SS Electrolyte Balance 7.0 mEq/L Invalid Interpretation Code 4.0 - 15.0 mEq/L AO ADM SS Eosinophil, Absolute 0.1 103/mcL Invalid Interpretation Code 0.0 - 0.4 10^3/mcL AO Workflow SS Eosinophils/100 WBC (Bld) 1.8 % Invalid Interpretation Code 0.0 - 7.0 % AO Workflow SS Erythrocyte distribution width (RBC) [Ratio] 12.4 % Invalid Interpretation Code 11.5 - 14.5 % AO Workflow SS Globulin 2.7 G/dL Invalid Interpretation Code AO ADM SS Glucose [Mass/Vol] 99 mg/dL Invalid Interpretation Code 70 - 105 mg/dL AO ADM SS Hematocrit (Bld) [Volume fraction] 42.8 % Invalid Interpretation Code 42.0 - 52.0 % AO Workflow SS Hgb 14.8 G/dL Invalid Interpretation Code 14.0 - 18.0 G/dL AO Workflow SS Lymphocyte, Absolute 1.1 103/mcL Invalid Interpretation Code 0.8 - 3.9 10^3/mcL AO Workflow SS Lymphocytes/100 WBC (Bld) 16.5 % Invalid Interpretation Code 10.0 - 50.0 % AO Workflow SS MCH (RBC) [Entitic mass] 31.4 pg Invalid Interpretation Code 27.0 - 31.2 pg AO Workflow SS MCHC 34.5 G/dL Invalid Interpretation Code 31.8 - 35.4 G/dL AO Workflow SS MCV (RBC) [Entitic vol] 91.0 fL Invalid Interpretation Code 80.0 - 94.0 fL AO Workflow SS Monocyte, Absolute 0.5 103/mcL Invalid Interpretation Code 0.2 - 1.0 10^3/mcL AO Workflow SS Monocytes/100 WBC (Bld) 8.2 % Invalid Interpretation Code 1.7 - 13.0 % AO Workflow SS Neutrophil, Absolute 4.7 103/mcL Invalid Interpretation Code 2.9 - 6.2 10^3/mcL AO Workflow SS Neutrophils/100 WBC (Bld) 73.0 % Invalid Interpretation Code 37.0 - 80.0 % AO Workflow SS Platelet 285 103/mcL Invalid Interpretation Code 130 - 400 10^3/mcL AO Workflow SS Platelet mean volume (Bld) [Entitic vol] 8.1 fL Invalid Interpretation Code 7.4 - 10.4 fL AO Workflow SS Potassium [Moles/Vol] 4.2 mmol/L Invalid Interpretation Code 3.5 - 5.1 mmol/L AO ADM SS Protein [Mass/Vol] 6.9 G/dL Invalid Interpretation Code 6.4 - 8.2 G/dL AO ADM SS RBC 4.70 106/mcL Invalid Interpretation Code 4.04 - 6.13 10^6/mcL AO Workflow SS Sodium [Moles/Vol] 140 mmol/L Invalid Interpretation Code 136 - 145 mmol/L AO ADM SS Urea nitrogen [Mass/Vol] 19 mg/dL Invalid Interpretation Code 7 - 18 mg/dL AO ADM SS Urea nitrogen/Creatinine [Mass ratio] 16 ratio Invalid Interpretation Code 7 - 27 ratio AO ADM SS WBC 6.4 103/mcL Invalid Interpretation Code 4.6 - 10.8 10^3/mcL AO Workflow SS LABORATORYOrdered By: SYSTEM SYSTEM on 03-24-2022 GFR 80 ml/min/1.73sqm Invalid Interpretation Code AO Chemistry S GFR Non- 66 ml/min/1.73sqm Invalid Interpretation Code AO Chemistry S Hep B Surf Ag Non-Reactive (03/24/22 8:13 AM) Invalid Interpretation Code Non-Reactive AH ADM SS Monocyte distribution width Auto (Bld) [Entitic vol] Not Performed 1 *NA* (03/24/22 8:13 AM) Invalid Interpretation Code 0.00 - 20.00 AO Hematology S Comment on above: Result Comment: MDW testing performed only on adult ER patients between the ages of 18-89 years. LABORATORYOrdered By: Fatemeh Eaton on 03-24-2022 Hep C Ab Non-Reactive (03/24/22 8:13 AM) Invalid Interpretation Code Non-Reactive AH ADM SS Hep C Ab Int Nonreactive: Samples with a value < 0.80 are considered nonreactive (negative) for antibodies to HCV.A negative test result does not exclude the possibility of exposure to or infection with HCV. HCV antibodies may be undetectable in some stages of the infection and in some clinical conditions. Invalid Interpretation Code AH Chemistry S LABORATORYOrdered By: Antonia Ramires on 03-24-2022 HIV 1 p24 Ab Ql (S) Non-Reactive (03/24/22 8:13 AM) Invalid Interpretation Code Non-Reactive AO Rapid Testing SS HIV 1+2 Ab IA.rapid Ql (Unsp spec) Non-Reactive (03/24/22 8:13 AM) Invalid Interpretation Code Non-Reactive AO Rapid Testing SS HIV P24 Int Non-Reactive Invalid Interpretation Code AO Rapid Testing SS RHIV 1/2 Ab Int Non-Reactive Invalid Interpretation Code AO Rapid Testing SS LABORATORYOrdered By: FRANKY LLOYD CONTRIBUTOR_SYSTEM on 03-24-2022 LDL Cholesterol Direct 150 mg/dL Invalid Interpretation Code <100mg/dL AO Sendouts SS Comment on above: Result Comment: <100 mg/dL, Optimal 100-129 mg/dL, Near optimal/above optimal 130-159 mg/dL, Borderline high 160-189 mg/dL, High >189 mg/dL, Very high Secondary prevention optimal LDL Cholesterol levels are recommended to be < 70 mg/dL Performed By: [email or web address] [address] Supervisor Pig Machine: Diomedes Beauchamp III, M.D. CLIA#: [id number] VLDL Cholesterol See Below Invalid Interpretation Code AO Sendouts SS Comment on above: Result Comment: Test not indicated. Performed By: [employer] [place] [address] Supervisor [employer] Machine: Diomedes Beauchamp III, M.D. CLIA#: [id number] Vital Signs Date Time Vital Sign Value Performing Clinician Kishan ortez 03-19-2023 19:28-0400 Body height 172.72 cm [facility] 03-19-2023 19:28-0400 Body mass index (BMI) [Ratio] 32.7 kg/m2 [facility] 03-19-2023 19:28-0400 Body temperature 98.7 [degF] [facility] 03-19-2023 19:28-0400 Body weight 97.7 kg [facility] 03-19-2023 19:28-0400 Diastolic blood pressure 77 mm[Hg] [facility] 03-19-2023 19:28-0400 Heart rate 81 /min [facility] 03-19-2023 19:28-0400 Respiratory rate 16 /min [facility] 03-19-2023 19:28-0400 SaO2% (BldA) [Mass fraction] 98 % [facility] 03-19-2023 19:28-0400 Systolic blood pressure 130 mm[Hg] [facility] Encounters Encounter Date Encounter Type Care Provider Facility Start: 07-26-[address] [facility] Facility :[facility] Start: 05-29-2025 End: 05-29-[address] ANNIA STEVENS DO Facility:A Start: 04-24-2025 End: 04-24-[address] Annia Stevens DO Work Phone: [facility] [place] Start: 04-24-2025 End: 04-24-[address] Cheryl Pina MD -[facility] [place] Work Phone: Start: 04-24-2025 End: 04-[facility] Start: 01-25-2025 End: 01-25-[address] Annia Stevens DO Work Phone: [facility] Work Phone: Start: 01-25-2025 End: 01-25-[address] Cheryl Pina MD -Laboratory, [place] Work Phone: Start: 01-25-2025 End: 01-25-2025 ambulatory [facility] [place] Facility:[facility] Start: 11-05-2024 End: 11-05-[address] Cheryl Pina MD -Laboratory, [place] Work Phone: Start: 11-05-2024 End: 11-05-2024 ambulatory [facility] [place] Facility:[facility] Start: 09-07-2024 End: 09-07-2024 [facility] Start: 09-03-2024 End: 09-03-2024 ambulatory MD MARCELO MCCRACKEN Facility:[facility] Start: 09-03-2024 End: 09-03-2024 Patient encounter procedure MARCELO MCCRACKEN [facility] Start: 08-17-2024 End: 08-17-2024 ambulatory [facility] [place] Facility:[facility] Start: 07-30-2024 End: 07-30-[address] ANNIA STEVENS DO Facility:[facility] Start: 07-30-2024 End: 07-30-[address] ANNIA STEVENS DO [facility] Start: 07-30-2024 End: 07-30-2024 Well adult monitoring check done DR ANNIA STEVENS DO [facility] Start: 05-07-2024 End: 05-07-2024 ambulatory SAMM HENNING Facility:[facility] Start: 01-07-2024 End: 01-07-[address] ANNAI STEVENS DO Facility:[facility] Start: 09-23-2023 End: 09-23-[address] ANNIA STEVENS DO Facility:[facility] Start: 08-01-2023 End: 08-01-2023 ambulatory AWAIS DOYLE PA-C Facility:[facility] Start: 08-01-2023 End: 08-01-2023 Patient encounter procedure AWAIS DOYLE PA-C [facility] Start: 06-09-2023 End: 06-09-[address] ANNIA STEVENS DO Facility:[facility] Start: 06-09-2023 End: 06-09-[address] ANNIA STEVENS DO [facility] Start: 06-09-2023 End: 06-09-2023 Well adult monitoring check done DR ANNIA STEVENS DO [facility] Start: 03-19-2023 End: 03-19-2023 Emergency department patient visit [facility] Start: 01-21-2023 End: 01-21-2023 Patient encounter procedure LUBA KHANNA DO [facility] Start: 10-25-2022 End: 10-25-2022 Patient encounter procedure SAMM HENNING DO [facility] Start: 10-01-2022 End: 10-01-[address] ANNIA STEVENS DO [facility] Start: 03-24-2022 End: 03-24-2022 Patient encounter procedure SAMM HENNING DO [facility] Start: 02-18-2022 End: 02-18-2022 Patient encounter procedure ESSENCE PEREZ APRN-RESTAURANT EXPEDITOR [facility] Procedures Date Procedure Procedure Detail Performing Clinician Start: 03-10-2021 Elbow region structu re (body structure) ESSENCE PEREZ APRN-RESTAURANT EXPEDITOR Comment on above: right elbow distal b ecep tendon repair Plan of Treatment Date Care Activity Detail Author Patient Education ED Laceration: All Clos ures [facility] Work Phone: Patient referral [facility] Work Phone: Immunizations Immunization Date Immunization Notes Care Provider Cate bhakta 07-17-2021 SARS-CoV-2 mRNA (tozinameran) vaccine DR ANNIA STEVENS DO [facility] 06-26-2021 SARS-CoV-2 mRNA (tozinameran) vaccine DR ANNIA STEVENS DO [facility] Payers Date Payer Category Payer Self-pay 2023 Unknown [id number] 1980 Unknown [id number] 2.16.8 [id number] 1981 Unknown [id number] 2.16.8 [id number] 1981 Unknown [id number] 2.16.8 [id number] 1981 Unknown [id number] 2.16.8 40.1.573636.3.579.2.627 1981 Unknown [id number] 2.16.8 40.1.817408.3.579.2.627 1981 Unknown [id number] 2.16.8 40.1.155581.3.579.2.627 1981 Unknown [id number] 2.16.8 40.1.585501.3.579.2.627 1981 Unknown [id number] 2.16. 840.1.423322.3.579.2.627 Unknown [id number] 2.16.8 40.1.424159.3.579.2.462 Unknown [id number] 2.16.8 40.1.035596.3.579.2.462 Unknown [id number] 2.16.8 40.1.205394.3.579.2.462 Unknown [id number] 2.16.8 40.1.337615.3.579.2.462 Unknown [id number] 2.16.8 40.1.717673.3.579.2.462 Unknown [id number] 2.16.8 [id number] Social History Date Type Detail Facility Start: 07-30-2019 End: 08-23-2023 Tobacco smoking status Never smoked tobacco (finding) [facility] Comment on above: tobacco/smoke exposu re: minimal Start: 1980 Sex Assigned At Male [facility] Start: 03-19-2023 Tobacco smoking stat [facility] Unknown if ever smoked [facility] Start: 01-28-2025 Sex Male (finding) [facility] Clinical Notes 08-25-2021 to 09-03-2024 Laboratory Note Date & Type Note Facility 09-03-2024 Evaluation + Plan note Diagnostic Tests PendingHep B Core Ab, Tot 09/03/24QFT-TB Plus (Client Incubated) 09/03/24 Future Scheduled TestsLipid Profile 08/02/25Complete Metabolic Panel 08/02/25 [facility] 03-19-2023 Discharge summary Note Date/Time March 19, 2023 7:52p m [facility] Medical Records Department [address] [place] [address] Emergency Department Summary 03/19/23 MR#: [id number] Acct: [id number] Name: KELI ZELAYA Rep #:[id number] : 1980 42 From: Félix Anderson MD PCP: Dr. Annia Stevens, DO Status:REG E R Location: ED HPI History of Present Illness Chief Complaint: Laceration Detail of Chief Complaint: Scalp laceration. Informant: patient Onset/Context/Timing Onset: Today and Hours Mechanism/Context: Blunt Injury Current Severity: Mild Maximum Severity: Mild Associated Symptoms Associated Symptoms: Negative for Parasthesias, Weakness, Loss of function, Inability to ambulate, Loss of consciousness or Amnesia Narrative Narrative: 42-year-old male no significant past medical history. Was working outside his home pulled the electrical cord which came undone and the prongs of the cord struck him in his scalp causing a 1 inch laceration. This occurred several hours ago. He was unable to get the bleeding stopped and came in to have it evaluated. Denies any LOC. No headache. His tetanus is up-to-date. Tetanus Immunization: 5-10 years Prior similar symptoms: No Recent Illness/Hospitalization: No PFSH PFS Medical History (Updated 03/19/23 @ 19:[address] Félix Anderson MD) Asthma Medical History no medical history no medical history Allergy/AdvReac Type Severity Reaction Status Date / Time No Known Allergies Allergy Verified 03/19/23 19:29 ROS ROS ED ROS Narrative Denies recent illness. Review of Systems ROS Unobtainable: Denies due to encephalopathy Constitutional Constitutional ED: Denies fever(s) Eyes Eyes: Denies blurry vision ENT ENT ED: Denies ear pain Cardiovascular Cardiovascular: Denies chest pain Respiratory/Chest Respiratory/Chest: Denies cough Gastrointestinal Gastrointestinal: Denies abdominal pain Genitourinary Genitourinary ED: Denies dysuria Musculoskeletal Musculoskeletal: Denies arthralgias Integumentary Denies abscess Neurologic Neurologic: Denies headache(s) Psychiatric Psychiatric: Denies anxiety Endocrine Endocrinology: Denies cold intolerance Hematologic/Lymphatic Hematologic/Lymphatic: Denies easy bleeding or easy bruising Allergic/Immunologic Allergic/Immunologic ED: Denies mouth swelling or tongue swelling EXAM Physical Exam Narrative Exam Narrative: 42-year-old male no acute distress. Vital signs stable afebrile. H EENT exam is round to light. No facial trauma. Anterior top of the scalp is about a 1 inch laceration. It does not gape. There is no significant hematoma. It is oozing blood. No pulsatile bleeding. No foreign body. Neck nontender. Lungs are clear. Heart regular rhythm. Chest wall nontender. Abdomen soft nontender. Moving all 4 extremities. Neurologic exam normal. Const Vital Signs: 03/19/23 19:28 Temperature 98.7 F Temperature Source Temporal Pulse Rate 81 Respiratory Rate 16 Blood Pressure 130/77 H Blood Pressure Mean 94 Pulse Ox 98 Oxygen Delivery Method Room Air Positive well nourished and well developed; Negative for cachectic or unkempt General Appearance ED: well developed and NAD; Negative for unkempt or cachectic Nutritional Appearance: Negative for cachectic HEENT HEENT Narrative: Anterior scalp laceration 1 inch. Does not gape. Mild oozing of blood. trauma and tenderness; Negative for atraumatic Eyes PERRL and EOMs intact bilaterally Neck full ROM General: Negative for tenderness or other Chest Wall inspection of chest normal and palpation of chest normal Breast/Axilla Inspection: Negative for other Resp normal respiratory effort and clear to auscultation bilaterally Effort and Inspection: Negative for pain with movement Auscultation: Negative for rales, rhonchi or wheezes Cardio S1 normal heart sound, S2 normal heart sound and no murmurs Jugular Venous Distention: Negative for other Palpation: Negative for palpable S3 Rate: regular rate; Negative for bradycardia or tachycardic Rhythm: Negative for abnormal rhythm GI normal to inspection, nondistended, normoactive bowel sounds, non-tender, non-distended and no masses Inspection: Negative for abdominal distention Auscultation: normoactive bowel sounds Palpation: soft; Negative for tender or guarding Bladder / Kidney Exam: No other Back/Spine normal to inspection and no thoracic nor lumbar tenderness General Back: Negative for CVA tenderness Thoracic Spine / Upper Back: Negative for thoracic spinal tenderness Extremity normal to inspection and full ROM General Extremety ED: Negative for deformity or edema General Extremity: Negative for deformity or edema Neuro oriented x3, CN's II-XII intact bilaterally, moves all extremities, no focal motor deficits and no sensory deficits noted Beena Coma Scale: document GCS findings Spontaneous Obeys Commands Oriented 15 Sensorium / Orientation: alert, oriented to person, oriented to place and oriented to time; Negative for orientation impaired, lethargic or stuporous Motor Exam: strength 5/5 throughout Psych mental status grossly normal and thought process normal Appearance: Negative for unkempt Attitude: No agitated Mood & Affect: Negative for depressed, anxious or tearful Skin no rashes or lesions noted, No no wounds, skin turgor normal and no jaundice Skin Narrative: Anterior scalp laceration 1 inch. Wounds: wounds noted PROC Procedures Lacerations Anterior scalp laceration repair:: Length: 1 in Depth: Sub Q Shape: Linear Comment: Anterior scalp laceration. 1 to 2 inches. Oozing blood. No foreign body. No infection. Does not gape. Clean. Closed using Dermabond. Proper hemostasis wound closure obtained. Patient tolerated procedure well. Was instructed on wound care. MDM MDM MDM Narrative Medical decision making narrative: 42-year-old male had an electrical plug hit him and his anterior scalp causing a1 inch laceration. Tetanus up-to-date. Clean the wound. It does not gape. Dermabond was applied. We discussed suturing versus Dermabond. Patient preferred glue. Steri-Strips were applied. He was instructed on wound care. Discharge Plan Triage Chief Complaint: Laceration ED Provider: Félix Anderson Dx/Rx/DC Orders Clinical Impression: Laceration of scalp Instructions: ED Laceration: All Closures Primary Care Provider: Annia Stevens Referrals: Annia Stevens DO [Primary Care Provider] - As Needed Activity Restrictions/Additional Instructions: If rebleeds hold direct pressure to 20 to 30 minutes. If unable to get the bleeding stopped return. Tylenol for pain. The Steri-Strips will naturally come off do not take them off before 5 days. Disposition Disposition: Home, Self Care What to do if you have Problems For any increased pain, shortness of breath, bleeding, nausea or vomiting, chestpain, or any unexpected problems, contact your Primary Care Provider. Call [facility] ([phone]) or report to the closest Emergency Room. Call 911 if necessary. 03/19/231952 <Electronically signed by Félix Anderson MD> Cosigner Signature (if applicable): CC: Dr. Annia Stevens DO ~ Signed [facility] Work Phone: [phone] 415-562001-27-2023 Evaluation + Plan note Future Scheduled Tests Radiology* MRI Ankle w/o Contrast Left 11/12/22 [facility] 12-16-2022 Note ORIGINAL EXAMINATION: SOFT TISSUE ULTRASOUND 10/01/2022 11:50 am COMPARISON: X-ray left ankle 06/18/2022 HISTORY: ORDERING SYSTEM PROVIDED HISTORY: Reason for Exam: chronic left ankle pain and swelling Patient complains of generalized pain and swelling x6 months. FINDINGS: Grayscale and color ultrasound images of the left ankle were obtained. No mass, fluid collection or abnormal vascularity. Comparison images of the right ankle were obtained and demonstrate no asymmetry. IMPRESSION: No sonographic abnormality of the left ankle. I have personally reviewed the images of this examination and agree with the resident's findings and interpretation. Interpreted by: Jeremías Boyer MD Preliminary Report By: Ruby Hunt Electronically signed By Jeremías Boyer MD Dictated Date: 10/01/2022 1:10:47 PM Prelim Date: 10/01/2022 2:50:42 PM Sign Date: 10/01/2022 2:50:42 PM Ordering Provider: [facility]12-16-2022 Note ORIGINAL EXAMINATION: SOFT TISSUE ULTRASOUND 10/01/2022 11:50 am COMPARISON: X-ray left ankle 06/18/2022 HISTORY: ORDERING SYSTEM PROVIDED HISTORY: Reason for Exam: chronic left ankle pain and swelling Patient complains of generalized pain and swelling x6 months. FINDINGS: Grayscale and color ultrasound images of the left ankle were obtained. No mass, fluid collection or abnormal vascularity. Comparison images of the right ankle were obtained and demonstrate no asymmetry. IMPRESSION: No sonographic abnormality of the left ankle. I have personally reviewed the images of this examination and agree with the resident's findings and interpretation. Interpreted by: Jeremías Boyer MD Preliminary Report By: Ruby Hunt Electronically signed By Jeremías Boyer MD Dictated Date: 10/01/2022 1:10:47 PM Prelim Date: 10/01/2022 2:50:42 PM Sign Date: 10/01/2022 2:50:42 PM Ordering Provider: [facility]08-27-2022 Evaluation + Plan note Future Scheduled Tests Laboratory* Lipid Profile 06/12/22 * Complete Metabolic Panel 06/12/22 Radiology* XR Foot Minimum 3 Views Left 02/18/22 * MRI Ankle w/o Contrast Left 09/15/22 [facility] 08-27-2022 Evaluation + Plan note Future Scheduled Tests Laboratory* Lipid Profile 06/12/22 * Complete Metabolic Panel 06/12/22 Radiology* XR Foot Minimum 3 Views Left 02/18/22 * MRI Ankle w/o Contrast Left 10/18/22 [facility] 08-27-2022 Evaluation + Plan note Future Scheduled Tests Laboratory* Lipid Profile 06/12/22 * Complete Metabolic Panel 06/12/22 Radiology* XR Foot Minimum 3 Views Left 02/18/22 * MRI Ankle w/o Contrast Left 11/12/22 [facility] 06-08-2022 Evaluation + Plan note Diagnostic Tests Pending * TB Quantiferon, Incubated 03/24/22 * Hepatitis A Antibody IgG 03/24/22 Future Scheduled Tests Laboratory* Thyroid Stimulating Hormone 08/25/21 * Complete Blood Count 08/25/21 * Lipid Profile 06/12/22 * Lipid Profile 08/25/21 * Complete Metabolic Panel 06/12/22 * Complete Metabolic Panel 08/25/21 Radiology* XR Foot Minimum 3 Views Left 02/18/22 [facility] 11-09-2021 Evaluation + Plan note Future Scheduled Tests Laboratory* Thyroid Stimulating Hormone 08/25/21 * Complete Blood Count 08/25/21 * Lipid Profile 06/12/22 * Lipid Profile 08/25/21 * Complete Metabolic Panel 06/12/22 * Complete Metabolic Panel 08/25/21 Radiology* XR Foot Minimum 3 Views Left 02/18/22 [facility] Evaluation + Plan note Future Appointments Appointment Date:08/02/2024 11:30:00 AM Scheduled Provider:ANNIA STEVENS DO Location:[facility] Appointment Type:PC Wellness Annual Diagnostic Tests Pending * LORY by IFA Screen 07/30/24 [facility] Evaluation noteNo assessment information available [facility] Work Phone: Hospital course Narrative No data available for this section [facility] Hospital Discharge instructions No data available for this section [facility] Hospital Discharge instructions Additional Instructions If rebleeds hold direct pressure to 20 to 30 minutes. If unable to get the bleeding stopped return. Tylenol for pain. The Steri-Strips will naturally come off do not take them off before 5 days. [facility] Work Phone: Progress note No data available for this section [facility] Reason for referral (narrative)No reason for referral information availableWParkview Health Work Phone: Chief Complaint and Reason for Visit Chief Complaint laceration Chief Complaint Admit Date PAIN- COPY PCP November 05, 2024 2 :45pm PAIN- COPY PCP January 25, 2025 9:4 1am Chief Complaint Admit Date PAIN- COPY PCP January 25, 2025 9:4 1am Advance Directives No Advanced Directives Records Found Advance Directive Response Recorded Date/ Time Living Will No March 19, 2023 7 :45pm Power of Salad Maker No March 19, 2023 7:45pm Summary Purpose Family History No Family History Records Found Additional Source Comments Care Team (unrecognized sect ion and content) Team Status: Active Member Role Status Dates Dr. Annia Stevens DO Primary Care Provider Active Team Status: Inactive Member Role Status Dates Dr. Annia Stevens DO Primary Care Provider Active Dr. Félix Anderson MD Emergency Provider Active Team Status: Inactive Member Role Status Dates Dr. Annia Stevens DO Primary Care Provider Active Start: November 05, 2024 End: November 05, 2024 Dr. Cheryl Pina MD Attending Provider Active Start: November 05, 2024 End: November 05, 2024 Dr. Cheryl Pina MD Referring Provider Active Start: November 05, 2024 End: November 05, 2024 Team Status: Inactive Member Role Status Dates Dr. Annia Stevens DO Primary Care Provider Active Start: January 25, 2025 End: January 25, 2025 Dr. Cheryl Pina MD Attending Provider Active Start: January 25, 2025 End: January 25, 2025 Dr. Cheryl Pina MD Referring Provider Active Start: January 25, 2025 End: January 25, 2025 Team Status: Active Member Role/Relationship Status Dates Dr. Annia Stevens DO Primary Care Provider Active Team Status: Inactive Member Role/Relationship Status Dates Dr. Annia Stevens DO Primary Care Provider Active Start: January 25, 2025 End: January 25, 2025 Dr. Cheryl Pina MD Attending Provider Active Start: January 25, 2025 End: January 25, 2025 Dr. Cheryl Pina MD Referring Provider Active Start: January 25, 2025 End: January 25, 2025 Team Status: Inactive Member Role/Relationship Status Dates Dr. Annia Stevens DO Primary Care Provider Active Start: April 24, 2025 End: April 24, 2025 Dr. Cheryl Pina MD Attending Provider Active Start: April 24, 2025 End: April 24, 2025 Dr. Cheryl Pina MD Referring Provider Active Start: April 24, 2025 End: April 24, 2025 Care Team (unrecognized sect ion and content) Care Team Personnel Name: ANNIA STEVENS DO Position: P4 Physician - Primary Care Member Role: Primary Care Physician Address: Address: [address] [place] [address] Care Team Related Persons Name: ZELAYA CHARISSA Address: Home [address] [place] [phone] [place] Care Team Personnel Name: ANNIA STEVENS DO Position: P4 Physician - Primary Care Member Role: Primary Care Physician Address: Address: [address] [place] [address] Care Team Related Persons Name: CHARISSA ZELAYA Address: Home [address] [place] [phone] [place] Goals (unrecognized section and content) Goals may be documented in a n alternate section (unrecognized sect ion and content) No Status Records FoundNo Status Records FoundNo Status Records FoundNo Status Records Found INFORMATION SOURCE (unrecogn ized section and content) DATE CREATED AUTHOR 05/10/2024 [facility] ([place]) DATE CREATED AUTHOR AUTHOR'S ORGANIZ ATION 2024 [facility] DATE CREATED AUTHOR AUTHOR'S ORGANIZ ATION 06/25/2025 [facility] DATE CREATED AUTHOR AUTHOR'S ORGANIZ ATION 07/28/2025 [facility] FOR RECORDS PERTAINING TO PATIENTS WHO ARE OR HAVE BEEN ENROLLED IN A CHEMICAL DEPENDENCY/SUBSTANCEABUSE PROGRAM, SOME INFORMATION MAY BE OMITTED. This clinical summary was aggregated from multiple sources. Caution should be exercised in using it in the provision of clinical care. This summary normalizes information from multiple sources, and as a consequence, information in this document may materially change the coding, format and clinical context of patient data. In addition, data may be omitted in some cases. CLINICAL DECISIONS SHOULD BE BASED ON THE PRIMARY CLINICAL RECORDS. [facility] [employer] [facility]. provides no warranty or guarantee of the accuracy or completeness of information in this document.
== END | disposition home or self-care (01) ==
LOC: MTLAB 08-27 14:46
PROVIDERS: PCP Family Medicine; Referring Provider Internal Medicine Rheumatology; Visit Provider Internal Medicine Rheumatology
DX: L40.59 Other psoriatic arthropathy (principal); Z79.899 Other long term (current) drug therapy; L40.8 Other psoriasis
CPT/HCPCS: 36415; 80053; 85025